=== PATIENT | female | born 1985 | race Caucasian/White ===

== ENCOUNTER 2016-02-25 19:38 | Outpatient (CLI) | payer MEDICAID ==
[2016-02-25] MEDS ORDERED: ACETAMINOPHEN 325 MG TABLET ONE (20:34)
[2016-02-25 20:57] LABS: APPEARANCE,URINE SLIGHTLY-CLOUDY; BILIRUBIN,URINE NEGATIVE (NEGATIVE); GLUCOSE, URINE NEGATIVE (NEGATIVE); KETONES,URINE NEGATIVE (NEGATIVE); LEUKOCYTE ESTERASE,URINE SMALL (NEGATIVE); NITRITE,URINE NEGATIVE (NEGATIVE); PROTEIN,URINE NEGATIVE (NEGATIVE); URINE SPECIFIC GRAVITY 1.004; UROBILINOGEN,URINE NEGATIVE mg/dL (<2.0)
--- NOTE | 2016-02-26 04:47 | L&D Discharge Summary ---
OB Discharge Summary Datetime Report Generated by CPN: 02/26/2016 04:45 DISCHARGE DIAGNOSIS Diagnosis/Symptoms: False Labor Diagnoses/Symptoms Other: IUP 38.1 weeks, normal BPs Gestation: 39.4 Number of Babies in Womb: 1 Parity: 1 DIET/ACTIVITY/RESTRICTIONS Diet: Regular Activity: Normal Activity Activity Restrictions: No Exercising TEACHING/INSTRUCTIONS/REFERRALS Instructions Given To: patient Instructions Understood: Patient Verbalized Understanding Referrals: None Educational Materials- Other: Round ligament pain DISCHARGE INFORMATION Discharged AMA: No Discharge Date/Time: 02/25/2016 21:24 Discharged To: Home Discharge Provider Name: Dr. Patton Accompanied By: Mother and family Discharge Method: Ambulatory Condition: Stable FOLLOW UP INFORMATION Follow Up With: [facility] Follow Up On: As Scheduled Follow Up Phone Number: [facility] - Comments: Instructed patient to rest if possible, take Tylenol as needed for discomfort, and return to hospital for contractions every 2-5 minutes for an hour, bleeding like a period, or if she thinks her water breaks. Instructed patient to follow-up as scheduled. Patient verbalized understanding and denied any further questions.
--- NOTE | 2016-02-26 04:47 | Antepartum Discharge Summary ---
Antepartum DC Datetime Report Generated by CPN: 02/26/2016 04:45 DIET/ACTIVITY/RESTRICTIONS Diet: Regular (02/25/2016 21:30:Maryanne Marlatt, RN) Activity: Normal Activity (02/25/2016 21:30:Maryanne Marlatt, RN) Activity Restrictions: No Exercising (02/25/2016 21:30:Maryanne Marlatt, RN) TEACHING/INSTRUCTIONS/REFERRALS Instructions Given To: patient (02/25/2016 21:30:Maryanne Marlatt, RN) Instructions Understood: Patient Verbalized Understanding (02/25/2016 21:30:Maryanne Lindsey RN) Referrals: None (02/25/2016 21:30:Maryanne Lindsey RN) Educational Materials- Other: Round ligament pain (02/25/2016 21:30:Maryanne Lindsey RN) DISCHARGE INFORMATION Discharged AMA: No (02/25/2016 21:30:Maryanne Lindsey RN) Discharge Date/Time: 02/25/2016 21:24 (02/25/2016 21:30:Maryanne Lindsey RN) Discharged To: Home (02/25/2016 21:30:Maryanne Lindsey RN) Discharge Provider Name: Dr. Patton (02/25/2016 21:30:Maryanne Lindsey RN) Accompanied By: Mother and family (02/25/2016 21:30:Maryanne Lindsey RN) Discharge Method: Ambulatory (02/25/2016 21:30:Maryanne Lindsey RN) Condition: Stable (02/25/2016 21:30:Maryanne Lindsey RN) FOLLOW UP INFORMATION Follow Up With: [facility] (02/25/2016 21:30:Maryanne Lindsey RN) Follow Up On: As Scheduled (02/25/2016 21:30:Maryanne Lindsey RN) Follow Up Phone Number: [facility] - (02/25/2016 21:30:Maryanne Lindsey RN) Comments: Instructed patient to rest if possible, take Tylenol as needed for discomfort, and return to hospital for contractions every 2-5 minutes for an hour, bleeding like a period, or if she thinks her water breaks. Instructed patient to follow-up as scheduled. Patient verbalized understanding and denied any further questions. (02/25/2016 21:30:Maryanne Lindsey RN)
--- NOTE | 2016-02-26 04:47 | L&D General Admission ---
General Admit Datetime Report Generated by CPN: 02/26/2016 04:45 INFORMATION Patient Age: 30 (02/15/2016 10:59:QS system process) EDC: 02/28/2016 00:00 (02/15/2016 11:02:Maryanne Lindsey RN) : 3 (02/15/2016 11:02:Maryanne Lindsey RN) Para: 1 (02/25/2016 21:30:Maryanne Lindsey RN) Para: 1 (02/15/2016 12:55:Maryanne Lindsey RN) Para: 1 (02/15/2016 11:02:Maryanne Lindsey RN) Baby, Number in Womb: 1 (02/25/2016 21:30:Maryanne Lindsey RN) Baby, Number in Womb: 1 (02/15/2016 12:55:Maryanne Lindsey RN) CARE Primary Supervisor Grading: [facility] [employer] [facility] (02/15/2016 11:02:Maryanne Lindsey RN) Month of 1st Visit: September 2015 (02/15/2016 11:02:Maryanne Lindsey RN) Adequate Care: No (02/15/2016 11:02:Maryanne Lindsey RN) Height (in): 64 (02/25/2016 20:25:QS system process) Height (in): 64 (02/25/2016 20:13:QS system process) Height (in): 64 (02/15/2016 12:48:QS system process) Height (in): 64 (02/15/2016 11:41:QS system process) ALLERGIES Medication Allergy: No (02/15/2016 11:02:Maryanne Lindsey RN) Medication Allergies: No Known Allergies (07/21/2015) (02/15/2016 10:59:QS system process) Latex Allergy: No Latex Allergies (02/15/2016 11:02:Maryanne Lindsey RN) COMMUNICATION Primary Language: Surinamese (02/15/2016 11:02:Maryanne Lindsey RN) DEMOGRAPHICS Address: [address] [place] [id number] (02/15/2016 10:59:QS system process) Zipcode: [address] (02/15/2016 10:59:QS system process) Home (02/15/2016 10:59:QS system process) SSN: [id number] (02/15/2016 10:59:QS system process) Next of Kin Name: ADAM CALLEJAS (02/15/2016 10:59:QS system process) Next of Kin (02/15/2016 10:59:QS system process) Next of Kin Relationship: MO (02/15/2016 10:59:QS system process) Date of : 1985 (02/15/2016 10:59:QS system process) Marital Status: Legally (02/15/2016 10:59:QS system process) Sex: Female (02/15/2016 10:59:QS system process) Race: (02/15/2016 10:59:QS system process) Ethnicity: Non- or (02/15/2016 10:59:QS system process) Gnosticist: None (02/15/2016 10:59:QS system process) LABS Blood Type: A Positive (02/15/2016 11:02:Maryanne Lindsey RN) Antibody Screen: Negative (02/15/2016 11:02:Karime Henson RN) Rho(G) this : Not Applicable (02/15/2016 11:02:Karime Henson RN) Hemoglobin: 10.9 L (02/15/2016 11:58:QS system process) Hematocrit: 32.0 L (02/15/2016 11:58:QS system process) MCV: 88 (02/15/2016 11:58:QS system process) Group Beta Strep: Negative (02/15/2016 11:02:Karime Henson RN) Gonorrhea: Negative (02/15/2016 11:02:Maryanne Lindsey RN) Chlamydia: Negative (02/15/2016 11:02:Maryanne Lindsey RN) RPR/VDRL: Nonreactive (02/15/2016 11:02:Maryanne Lindsey RN) Hepatitis B: Negative (02/15/2016 11:02:Maryanne Lindsey RN) Rubella: Immune (02/15/2016 11:02:Maryanne Lindsey RN)
--- NOTE | 2016-02-26 04:47 | L&D Admission Assessment ---
LD ADM ASMT Datetime Report Generated by CPN: 02/26/2016 04:45 PATIENT ASSESSMENT Assessment Type: Triage (02/25/2016 20:05:Maryanne Pereiraruth, RN) WEIGHT Weight (lb): 224 (02/25/2016 20:25:QS system process) Weight (lb): 224 (02/25/2016 20:13:QS system process) Weight (kg): 101.8 (02/25/2016 20:25:QS system process) Weight (kg): 101.8 (02/25/2016 20:13:QS system process) BMI: 38.4 (02/25/2016 20:25:QS system process) BMI: 38.4 (02/25/2016 20:13:QS system process) PAIN Pain Scale: 3 (02/25/2016 20:05:Maryanne Lindsey RN) Pain Presence: Intermittent (02/25/2016 20:05:Maryanne Lindsey RN) Pain Type: Cramping; Sharp (02/25/2016 20:05:Maryanne Lindsey RN) Pain Location: Abdomen (02/25/2016 20:05:Maryanne Lindsey RN) Pain Goal: 0 (02/25/2016 20:05:Maryanne Lindsey RN) Pain Related to Contraction: Unsure (02/25/2016 20:05:Maryanne Lindsey RN) CONTRACTIONS Frequency (min): irreg (02/25/2016 21:00:Maryanne Lindsey RN) Frequency (min): 0 (02/25/2016 20:30:Maryanne Lindsey RN) Duration (sec): 40-50 (02/25/2016 21:00:Maryanne Lindsey RN) Quality: Mild (02/25/2016 21:00:Maryanne Lindsey RN) Resting Tone Edon: Relaxed (02/25/2016 21:00:Maryanne Lindsey RN) Resting Tone Edon: Relaxed (02/25/2016 20:30:Maryanne Lindsey RN) VAGINAL EXAM Membranes Status: Intact (02/25/2016 20:05:Maryanne Lindsey RN) NEURO Level of Consciousness: Fully Conscious (02/25/2016 20:05:Maryanne Lindsey RN) DTR's/Clonus: DTRs 2+; No Clonus (02/25/2016 20:05:Maryanne Lindsey RN) Headache: Denies (02/25/2016 20:05:Maryanne Lindsey RN) Dizziness: No (02/25/2016 20:05:Maryanne Lindsey RN) Blurred Vision: No (02/25/2016 20:05:Maryanne Lindsey RN) Extremity Numbness/Tingling : None (02/25/2016 20:05:Maryanne Lindsey RN) Extremity Movement: Full Range of Motion (02/25/2016 20:05:Maryanne Lindsey RN) CARDIOVASCULAR Heart Rhythm: Regular (02/25/2016 20:05:Maryanne Lindsey RN) Nailbeds: [place] (02/25/2016 20:05:Maryanne Lindsey RN) Capillary Refill: Less than 3 Seconds (02/25/2016 20:05:Maryanne Lindsey RN) Lower Extremities Edema: None (02/25/2016 20:05:Maryanne Lindsey RN) Lower Extremities Edema Degree: None (02/25/2016 20:05:Maryanne Lindsey RN) Upper Extremities Edema: None (02/25/2016 20:05:Maryanne Lindsey RN) Upper Extremities Edema Degree: None (02/25/2016 20:05:Maryanne Lindsey RN) Facial Edema: None (02/25/2016 20:05:Maryanne Lindsey RN) Rowan's Sign Left Leg: Negative (02/25/2016 20:05:Maryanne Lindsey RN) Rowan's Sign Right Leg: Negative (02/25/2016 20:05:Maryanne Lindsey RN) RESPIRATORY Respiratory Effort: Unlabored; Regular Rhythm; Equal Expansion (02/25/2016 20:05:Maryanne Lindsey RN) Breath Sounds, Left: Clear and Equal (02/25/2016 20:05:Maryanne Lindsey RN) Breath Sounds, Right: Clear and Equal (02/25/2016 20:05:Maryanne Lindsey RN) Cough Productivity: None (02/25/2016 20:05:Maryanne Lindsey RN) GASTROINTESTINAL Nausea/Vomiting: Present (02/25/2016 20:05:Maryanne Lindsey RN) Bowel Sounds: Normoactive; All Quadrants (02/25/2016 20:05:Maryanne Lindsey RN) RUQ Epigastric Pain: Denies (02/25/2016 20:05:Maryanne Lindsey RN) Diet Type: Regular diet (02/25/2016 20:05:Maryanne Lindsey RN) Last Meal: 02/25/2016 14:00 (02/25/2016 20:05:Maryanne Lindsey RN) GENITOURINARY Bladder: Nondistended (02/25/2016 20:05:Maryanne Lindsey RN) Frequency of Urination: No (02/25/2016 20:05:Maryanne Lindsey RN) Urination Burning: No (02/25/2016 20:05:Maryanne Lindsey RN) CVA Tenderness: No (02/25/2016 20:05:Maryanne Lindsey RN) Vaginal Bleeding: None (02/25/2016 20:05:Maryanne Lindsey RN) Vaginal Discharge Amount: None (02/25/2016 20:05:Maryanne Lindsey RN) Vaginal Discharge Color: N/A (02/25/2016 20:05:Maryanne Lindsey RN) INTEGUMENTARY Skin Color: Normal for Race (02/25/2016 20:05:Maryanne Lindsey RN) Skin Temperature: Warm (02/25/2016 20:05:Maryanne Lindsey RN) Skin Moisture: Dry (02/25/2016 20:05:Maryanne Lindsey, JOE) DOYLE SKIN ASSESSMENT Doyle Scale Sensory Perception: No Impairment- Responds to verbal commands. Has no sensory deficit which would limit ability to feel or voice pain or discomfort (02/25/2016 20:05:Maryanne Lindsey RN) Doyle Scale Moisture: Rarely Moist- Skin is usually dry. Linen only requires changing at routine intervals (02/25/2016 20:05:Maryanne Lindsey RN) Doyle Scale Activity: Walks Frequently- Walks outside the room at least twice a day and inside room at least every 2 hours during the day. (02/25/2016 20:05:Maryanne Lindsey RN) Doyle Scale Mobility: No Limitations- Makes major and frequent changes in position without assistance (02/25/2016 20:05:Maryanne Lindsey RN) Doyle Scale Nutrition: Excellent- Eats most of every meal. Never refuses a meal. Usually eats a total of 4 or more servings of meat and dairy products. Occasionally eats between meals. Does not require supplementation (02/25/2016 20:05:Maryanne Lindsey RN) Doyle Scale Friction and Shear: No Apparent Problem- Moves in bed and in chair independently and has sufficient muscle strength to lift up completely during move. Maintains good position in bed or chair at all times (02/25/2016 20:05:Maryanne Lindsey RN) Doyle Scale Total: 23 (02/25/2016 20:05:QS system process) Doyle Scale Risk: No Risk of Pressure Ulcer Noted at this Time (02/25/2016 20:05:QS system process) SUPPORT Family Support: Significant Other supportive, at bedside frequently; Family supportive (02/25/2016 20:05:Maryanne Miladylatt, RN) Emotional State: Calm/Relaxed (02/25/2016 20:05:Maryanne Marlatt, RN) SAFETY Call Eaton Within Reach: Yes (02/25/2016 20:05:Maryanne Miladylatt, RN) Side Rails Up: Yes (02/25/2016 20:05:Maryanne Miladylatt, RN) Bed Wheels Locked: Yes (02/25/2016 20:05:Maryanne Miladylatt, RN) Arm Bands Present: Yes (02/25/2016 20:05:Maryanne Miladylatt, RN) FALL SCREEN Fall Risk History of Falling: (0) No (02/25/2016 20:05:Maryanen Lindsey RN) Fall Risk Secondary Diagnosis: (0) No (02/25/2016 20:05:Maryanne Lindsey RN) Fall Risk Ambulatory Aid: (0) None/Bedrest/Wheelchair/Nurse Assist (02/25/2016 20:05:Maryanne Lindsey RN) Fall Risk IV Therapy: (0) No (02/25/2016 20:05:Maryanne Lindsey RN) Fall Risk Gait: (0) Normal/Bedrest/Immobile (02/25/2016 20:05:Maryanne Lindsey RN) Fall Risk Mental Status: (0) Oriented to Own Ability (02/25/2016 20:05:Maryanne Lindsey RN) Fall Risk Score: 0 (02/25/2016 20:05:QS system process) Fall Risk Score Definition: No Risk: No action required (02/25/2016 20:05:QS system process) BABY A FHR Baseline Rate (bpm) Baby A: 120 (02/25/2016 21:00:Maryanne Lindsey RN) FHR Baseline Rate (bpm) Baby A: 120 (02/25/2016 20:30:Maryanne Lindsey RN) Variability Baby A: Moderate 6-25 bpm (02/25/2016 21:00:Maryanne Lindsey RN) Variability Baby A: Moderate 6-25 bpm (02/25/2016 20:30:Maryanne Lindsey RN) Accelerations Baby A: 15X15 (02/25/2016 21:00:Maryanne Lindsey RN) Accelerations Baby A: 15X15 (02/25/2016 20:30:Maryanne Lindsey RN)
--- NOTE | 2016-02-26 04:47 | L&D Current Admission ---
Current Admit Datetime Report Generated by CPN: 02/26/2016 04:45 ADMISSION INFORMATION Chief Complaint: Uterine Cramping (02/25/2016 20:05:Maryanne Lindsey RN) Chief Complaint: Headache; Dependant Edema; Nausea; Vomiting (02/15/2016 11:18:Maryanne Lindsey RN)
--- NOTE | 2016-02-26 04:47 | L&D Flow Sheet ---
LD Flowsheet Datetime Report Generated by CPN: 02/26/2016 04:45 Datetime: 02/25/2016 21:16 Comments: monitors discontinued, patient being discharged (Maryanne Marlatt, RN) Datetime: 02/25/2016 21:10 Monitor Interventions for FHR: Ultrasound Adjusted (Maryanne Marlatt, RN) Datetime: 02/25/2016 21:05 Vital Signs NBP Sys/Kitty/Mean (mmHg): 119 (QS system process) : 69 (QS system process) : 88 (QS system process) Pulse: 93 (QS system process) LaborFlag: Antepartum (QS system process) Datetime: 02/25/2016 21:02 Patient Care Patient Position/Activity: Right Lateral; Semi-Fowlers (Maryanne Marlatt, RN) Datetime: 02/25/2016 21:00 Uterine Activity Monitor Mode: External; Palpation (Maryanne Marlatt, RN) Frequency (min): irreg (Maryanne Marlatt, RN) Quality: Mild (Maryanne Marlatt, RN) Duration (sec): 40-50 (Maryanne Marlatt, RN) Resting Tone (Palpate): Relaxed (Maryanne Marlatt, RN) Assessment A Monitor Mode: External US (Maryanne Marlatt, RN) FHR Baseline Rate : 120 (Maryanne Marlatt, RN) Variability: Moderate 6-25 bpm (Maryanne Marlatt, RN) Accelerations: 15X15 (Maryanne Marlatt, RN) Datetime: 02/25/2016 20:58 I/O Interventions: Up to BR (Maryanne Marlatt, RN) Datetime: 02/25/2016 20:35 Vital Signs NBP Sys/Kitty/Mean (mmHg): 113 (QS system process) : 53 (QS system process) : 77 (QS system process) Pulse: 86 (QS system process) LaborFlag: Antepartum (QS system process) Datetime: 02/25/2016 20:34 Medications Analgesics/Sedatives: Tylenol (mg) @ (Annotations: 650mg) (Maryanne Marlatt, RN) Datetime: 02/25/2016 20:30 Uterine Activity Monitor Mode: External; Palpation (Maryanne Marlatt, RN) Frequency (min): 0 (Maryanne Marlatt, RN) Resting Tone (Palpate): Relaxed (Maryanne Marlatt, RN) Assessment A Monitor Mode: External US (Maryanne Marlatt, RN) FHR Baseline Rate : 120 (Maryanne Marlatt, RN) Variability: Moderate 6-25 bpm (Maryanne Marlatt, RN) Accelerations: 15X15 (Maryanne Marlatt, RN) Datetime: 02/25/2016 20:28 Communication Communication: Provider Orders Received; Call/Page Placed to Provider (Maryanne Lindsey RN) Provider Notified (Name): Dr. Patton (Maryanne Lindsey RN) Notification Reason: Status Update; Status; Uterine Activity; Pain (Maryanne Lindsey RN) Communication Comments: Notified provider of FHTs, lack of CTXs, and patient's comlaints of pain in two spots on her belly starting at 5pm. Received order to give patient 650mg of Tylenol, have her drink a pitcher of water and discharge her home with reactive NST (Maryanne Lindsey RN) Datetime: 02/25/2016 20:05 Pain Pain Scale: 3 (Maryanne Marlatt, RN) Pain Presence: Intermittent (Maryanne Marlatt, RN) Pain Type: Cramping; Sharp (Maryanne Marlatt, RN) Pain Location: Abdomen (Maryanne Marlatt, RN) Pain Goal: 0 (Maryanne Marlatt, RN) Pain Relief Measures: Comfort Measures (Maryanne Marlatt, RN) Pain Coping: Talking Through Contractions (Maryanne Marlatt, RN) Vaginal Exam Membrane Status: Intact (Maryanne Marlatt, RN) Vaginal Bleeding: None (Maryanne Marlatt, RN) Maternal Assessment Level of Consciousness: Fully Conscious (Maryanne Lindsey, OJE) DTR's/Clonus: DTRs 2+; No Clonus (Maryanne Lindsey, RN) Headache: Denies (Maryanne Lindsey, RN) Breath Sounds, Left: Clear and Equal (Maryanne Lindsey, RN) Breath Sounds, Right: Clear and Equal (Maryanne Lindsey, RN) Nausea/Vomiting: Present (Maryanne Lindsey RN) RUQ Epigastric Pain: Denies (Maryanne Lindsey, RN) Teaching Instructional Method: Demo; Verbal; Patient Instructed; Family/Support Person Instructed; Verbalized Understanding (Maryanne Lindsey RN) Plan of Care: Plan of Care Discussed (Maryanne Lindsey RN) Unit Routine: Norris to Room; Call Eaton; Bed; Monitoring (Maryanne Lindsey RN) Pain Management: Pain Scale/Goals; Comfort Measures (Maryanne Lindsey RN) LaborFlag: Antepartum (QS system process) Datetime: 02/25/2016 20:04 Vital Signs NBP Sys/Kitty/Mean (mmHg): 109 (QS system process) : 58 (QS system process) : 77 (QS system process) Pulse: 99 (QS system process) LaborFlag: Antepartum (QS system process)
--- NOTE | 2016-02-26 10:38 | Non Stress Test Report ---
Non Stress Test Datetime Report Generated by CPN: 02/26/2016 10:38 EGA NST: 39.4 Indication for Study: Other Indication for Study (NST) Other: labor check Monitor Explained: Monitor Explained; Test Explained; Patient Verbalized Understanding Time on Monitor: 02/25/2016 20:03 Time off Monitor: 02/25/2016 20:57 NST Duration: 54 NST Interventions: PO Hydration Physician Notified NST: Dr. Patton Movement : Present Contraction Frequency : rare FHR Baseline : 120 Accelerations : 15X15 Decelerations : None Variability : Moderate 6-25bpm NST Review: Meets Criteria for Reactive NST NST Review and Verified By : Tacho Henson RN NST Results: Reactive Report Trigger: Send Report
[2016-02-26 17:09] LABS: URINE BARBITURATES SCREEN NEGATIVE; URINE METHADONE SCREEN NEGATIVE; URINE PHENCYCLIDINE SCREEN NEGATIVE
--- NOTE | 2016-03-02 21:28 | Non Stress Test Report ---
Non Stress Test Datetime Report Generated by CPN: 03/02/2016 21:28 DEMOGRAPHIC EGA NST: 39.4 INDICATION Indication for Study: Other Indication for Study (NST) Other: labor check MONITORING Monitor Explained: Monitor Explained; Test Explained; Patient Verbalized Understanding Time on Monitor: 02/25/2016 20:03 Time off Monitor: 02/25/2016 20:57 NST Duration: 54 NST INTERVENTIONS NST Interventions: PO Hydration Physician Notified NST: Dr. Patton BABY A: [id number] BABY A Movement : Present Contraction Frequency : rare FHR Baseline : 120 Accelerations : 15X15 Decelerations : None Variability : Moderate 6-25bpm NST Review: Meets Criteria for Reactive NST NST Review and Verified By : Tacho Henson RN NSWill Results: Reactive NST REPORT Report Trigger: Send Report
--- NOTE | 2016-03-03 04:46 | L&D Discharge Summary ---
OB Discharge Summary Datetime Report Generated by CPN: 03/03/2016 04:45 DISCHARGE DIAGNOSIS Diagnosis/Symptoms: False Labor Diagnoses/Symptoms Other: IUP 38.1 weeks, normal BPs Gestation: 40.4 Number of Babies in Womb: 1 Parity: 1 DIET/ACTIVITY/RESTRICTIONS Diet: Regular Activity: Normal Activity Activity Restrictions: No Exercising TEACHING/INSTRUCTIONS/REFERRALS Instructions Given To: patient Instructions Understood: Patient Verbalized Understanding Referrals: None Educational Materials- Other: Round ligament pain DISCHARGE INFORMATION Discharged AMA: No Discharge Date/Time: 02/25/2016 21:24 Discharged To: Home Discharge Provider Name: Dr. Patton Accompanied By: Mother and family Discharge Method: Ambulatory Condition: Stable FOLLOW UP INFORMATION Follow Up With: [facility] Follow Up On: As Scheduled Follow Up Phone Number: [facility] - Comments: Instructed patient to rest if possible, take Tylenol as needed for discomfort, and return to hospital for contractions every 2-5 minutes for an hour, bleeding like a period, or if she thinks her water breaks. Instructed patient to follow-up as scheduled. Patient verbalized understanding and denied any further questions.
== END 2016-02-25 21:24 | disposition home or self-care (01) ==
LOC: LC 19:38
PROVIDERS: ATTEND Obstetrics & Gynecology
PROC: 4A1HXCZ Monitoring of Products of Conception, Cardiac Rate, External Approach (ICD-10-PCS; principal; 2016-02-25)
DX: O47.1 False labor at or after 37 completed weeks of gestation (principal); Z3A.40 40 weeks gestation of pregnancy
CPT/HCPCS: 59025; 81005; 80307; J3490

== ENCOUNTER 2016-03-02 21:27 | Inpatient (IN) | payer MEDICAID ==
[2016-03-02 22:16] LABS: APPEARANCE,URINE SLIGHTLY-CLOUDY; BILIRUBIN,URINE NEGATIVE (NEGATIVE); GLUCOSE, URINE NEGATIVE (NEGATIVE); KETONES,URINE NEGATIVE (NEGATIVE); LEUKOCYTE ESTERASE,URINE LARGE (NEGATIVE); NITRITE,URINE NEGATIVE (NEGATIVE); PROTEIN,URINE 30 mg/dL (NEGATIVE); URINE SPECIFIC GRAVITY 1.009; UROBILINOGEN,URINE NEGATIVE mg/dL (<2.0)
[2016-03-02 22:31] LABS: URINE BARBITURATES SCREEN NEGATIVE; URINE METHADONE SCREEN NEGATIVE; URINE PHENCYCLIDINE SCREEN NEGATIVE
[2016-03-02] MEDS ORDERED: RINGERS SOLUTION,LACTATED 1,000 ML IV PRN (23:34)
[2016-03-02] MEDS ORDERED: EPHEDRINE SULFATE INJ 50 MG/1 ML AMPULE ONE (23:59)
[2016-03-02] MEDS ORDERED: FENTANYL CITRATE INJ/PF 100 MCG/2 ML AMPUL ONE (23:59)
[2016-03-02] MEDS ORDERED: MISOPROSTOL 0.2 MG TABLET ONE (23:59)
[2016-03-03] LABS: ABSOLUTE BASOPHILS # (AUTO) 0.1 10^3/uL (0.0-0.2); ABSOLUTE EOSINOPHILS # (AUTO) 0.1 10^3/uL (0.0-0.6); ABSOLUTE LYMPHOCYTES (AUTO) 2.7 10^3/uL (0.5-4.7); ABSOLUTE MONOCYTES (AUTO) 1.1 10^3/uL (0.1-1.4); ABSOLUTE NEUT (AUTO) 14.7 10^3/uL (1.7-8.2); BASOPHILS % (AUTO) 0.5 % (0-2); EOSINOPHILS % (AUTO) 0.6 % (0-6); HEMATOCRIT 35.5 % (36.0-47.0); HEMOGLOBIN 11.5 g/dL (12.0-15.5); LYMPHOCYTES % (AUTO) 14.3 % (13-45); MEAN CORPUSCULAR HEMOGLOBIN 29.3 pg (27.0-33.4); MEAN CORPUSCULAR HGB CONC 32.3 g/dL (32.0-36.0); MEAN CORPUSCULAR VOLUME 91 fl (80-97); MONOCYTES % (AUTO) 5.7 % (3-13); RED BLOOD COUNT 3.91 10^6/uL (3.72-5.28); RED CELL DISTRIBUTION WIDTH 13.6 % (11.5-14.0); SEGMENTED NEUTROPHILS % (AUTO) 78.9 % (42-78); WHITE BLOOD COUNT 18.6 10^3/uL (4.0-10.5)
[2016-03-03] MEDS ORDERED: BUPIVACAINE HCL 0.25 % INJ/PF (2.5 MG/1 ML) 30 ML VIAL ONE
[2016-03-03] MEDS ORDERED: FENTANYL/BUPIVACAINE/NS/PF 200 MCG/100 ML RTUINJ EPI ONE
[2016-03-03] MEDS ORDERED: OXYTOCIN/NORMAL SALINE 20 UNIT/1,000 ML RTUINJ ONE
[2016-03-03] MEDS ORDERED: LIDOCAINE 1% INJ-PF (10 MG/ML) 30 ML SDV ONE
[2016-03-03] MEDS ORDERED: PHENYLEPHRINE HCL INJ/PF 10 MG/1 ML SDV ONE
[2016-03-03] MEDS ORDERED: GLYCERIN/WITCH HAZEL LEAF 1 EACH MED..PAD TP PRN (00:39)
[2016-03-03] MEDS ORDERED: ZOLPIDEM TARTRATE 5 MG TABLET PO PRN (00:39)
[2016-03-03] MEDS ORDERED: DIBUCAINE 1% OINTMENT 28 GM TP PRN (00:39)
[2016-03-03] MEDS ORDERED: ACETAMINOPHEN WITH CODEINE #3 TABLET PO PRN (00:39)
[2016-03-03] MEDS ORDERED: NA PHOS,M-B/NA PHOS,DI-BA (ADULT) 133 ML ENEMA PR PRN (00:39)
[2016-03-03] MEDS ORDERED: DIPH/PERTUSS(ACELL)/TETANUS VAC/PF 0.5 ML SYR (>=10YO) IM PRN (00:39)
[2016-03-03] MEDS ORDERED: MAGNESIUM HYDROXIDE SUSP 30 ML UDCUP PO PRN (00:39)
[2016-03-03] MEDS ORDERED: PROMETHAZINE HCL 25 MG TABLET PO PRN (00:39)
[2016-03-03] MEDS ORDERED: BENZOCAINE/MENTHOL AEROSOL SPRAY 56 ML TOP PRN (00:39)
[2016-03-03] MEDS ORDERED: DIPHENHYDRAMINE HCL 25 MG CAPSULE PO PRN (00:39)
[2016-03-03] MEDS ORDERED: PSEUDOEPHEDRINE HCL 30 MG TABLET PO PRN (00:39)
[2016-03-03] MEDS ORDERED: PROMETHAZINE HCL INJ 25 MG/1 ML VIAL IV PRN (00:39)
[2016-03-03] MEDS ORDERED: ACETAMINOPHEN 650 MG SUPP.RECT PR PRN (00:39)
[2016-03-03] MEDS ORDERED: MEASLES,MUMPS&RUBELLA VACC/PF 0.5 ML VIAL SUBCUT PRN (00:39)
[2016-03-03] MEDS ORDERED: PROMETHAZINE HCL 25 MG SUPP.RECT PR PRN (00:39)
[2016-03-03] MEDS ORDERED: OXYTOCIN/NORMAL SALINE 1,000 ML IV PRN (00:39)
[2016-03-03] MEDS ORDERED: ACETAMINOPHEN WITH CODEINE #3 TABLET ONE (01:46)
[2016-03-03] MEDS ORDERED: IBUPROFEN 800 MG TABLET ONE (01:46)
[2016-03-03] MEDS: ACETAMINOPHEN WITH CODEINE #3 TABLET PO PRN ×3 (01:52→18:19)
--- NOTE | 2016-03-03 03:07 | Delivery Summary ---
Del Sum A-C Datetime Report Generated by CPN: 03/03/2016 03:07 ADMISSION DATA Chief Complaint: Uterine Contractions Indication for Induction: Not Applicable Admission Impression: Term, Intrauterine ; Active Labor Admit Provider Comments: efw 7-8 lbs DELIVERY PERSONNEL Delivery Doctor:: Makenzie Patton MD Labor and Delivery Nurse:: Charu Barraza RNlicensed prosthetist/orthotist Nurse:: Belkis Hdez RN Nursery Nurse:: Teodora Ribera RN Offset Pressman/DEWAYNE: Raysa Perez, ST MATERNAL INFORMATION Delivery Anesthesia: Epidural Medications After Delivery: Pitocin Bolus-Please Comment Meds After Delivery Comment: Pitocin 20 units/1000 mL NS Estimated Blood Loss (ml): 250 Maternal Complications: Precipitous Labor (<3hrs) LABOR SUMMARY EDC: 02/28/2016 00:00 No. Babies in Womb: 1 Labor Anesthesia: Epidural LABOR INFORMATION Reason for Induction: Not Applicable Onset of Labor: 03/02/2016 23:25 Complete Dilatation: 03/03/2016 01:11 Oxytocin: N/A Group B Beta Strep: Negative Antibiotics # of Doses: 0 Antibiotics Time of Last Dose: N/A Steroids Given: None Reason Steroids Not Administered: Not Applicable MEMBRANES Membranes Rupture Method: Spontaneous Rupture of Membranes: 03/03/2016 00:21 Length of Rupture (hr): 0.95 Amniotic Fluid Color: Light Meconium Amniotic Fluid Amount: Moderate Amniotic Fluid Odor: Normal STAGES OF LABOR Stage 1 hr: 1 Stage 1 min: 46 Stage 2 hr: 0 Stage 2 min: 7 Stage 3 hr: 0 Stage 3 min: 4 Total Time in Labor hr: 1 Total Time in Labor min: 57 VAGINAL DELIVERY Episiotomy: None Laceration Type: None Laceration Repair: Not Applicable Sponge Count Correct: N/A Sharps Count Correct: N/A CSECTION DELIVERY Primary Indication: N/A Secondary Indication: N/A CSection Incidence: N/A Labor: N/A Elective: N/A CSection Incision: N/A BABY A INFORMATION Delivery Date/Time: 03/03/2016 01:18 Method of Delivery: Vaginal Born in Route : No : N/A Forceps: N/A Vacuum Extraction: N/A Shoulder Dystocia : No PRESENTATION/POSITION BABY A Presentation: Cephalic Cephalic Presentation: Vertex Vertex Position: Left Occipital Anterior Breech Presentation: N/A PLACENTA INFORMATION BABY A Placenta Delivery Time : 03/03/2016 01:22 Placenta Method of Delivery: Spontaneous Placenta Status: Delivered SCORES BABY A Heart Rate 1 min: >100 bpm Resp Effort 1 min: Good Cry Reflex Irritability 1 min: Cough or Sneeze or Pulls Away Muscle Tone 1 min: Active Motion Color 1 min: Blue/Pale SCORE 1 MIN: 8 Heart Rate 5 min: >100 bpm Resp Effort 5 min: Good Cry Reflex Irritability 5 min: Cough or Sneeze or Pulls Away Muscle Tone 5 min: Active Motion Color 5 min: Body Katie, Extremities Blue SCORE 5 MIN: 9 INFANT INFORMATION BABY A Gestational Age at Delivery: 40.4 Gestational Status: Full Term- 39- 40.6 Weeks Outcome : Liveborn Condition : Stable Sex: Male IDENTIFICATION BABY A Verification Date/Time: 03/03/2016 01:48 ID Band Number: [id number] Mother's Name Verified: Yes RN Verifying Infant: Emilia Meneses, RN Additional Verifying Personnel: Emilia Barraza, RN WEIGHT/LENGTH BABY A Infant Birthweight (gm): 3601 Weight (lb): 7 Weight (oz): 15 Length (in): 20.25 Infant Length (cm): 51.44 CORD INFORMATION BABY A No. Cord Vessels: 3 Nuchal Cord : N/A Cord Blood Taken: Yes-For Storage (Mom's Blood type +) Suction: Mouth; Nose ASSESSMENT BABY A Infant Complications: Other Infant Complications- Other: Late and variable decels Respirations: Appears Normal Skin to Skin: Yes Skin to Skin Time (min): 10 Gastroenterology Professor/ALS Called : No Infant Care By: Omi Bacilio RN Transferred To: Remains with Mother SIGNATURES Signature: with User ID: [email or web address]
--- NOTE | 2016-03-03 04:46 | L&D Current Admission ---
Current Admit Datetime Report Generated by CPN: 03/03/2016 04:45 ADMISSION INFORMATION Current Admit Date/Time: 03/03/2016 00:08 (03/02/2016 22:00:Charu Barraza RN) Reason for Admission: Onset of Labor (03/02/2016 22:00:Charu Barraza RN) Chief Complaint: Contractions (03/02/2016 22:00:Charu Barraza RN) Medications During : Ferrous Sulfate (Iron) (03/02/2016 22:00:Charu Barraza RN) Meds During -Oth: diclegis, iron, vit b/vit c (03/02/2016 22:00:Chaur Barraza RN) EGA per Dates: 40.4 (03/02/2016 22:00:QS system process) Method of Arrival: Wheelchair (03/02/2016 22:00:Charu Barraza RN) Admitted From: Home (03/02/2016 22:00:Charu Barraza RN) Reason for Induction: Not Applicable (03/02/2016 22:00:Charu Barraza RN) Records Available: Yes (03/02/2016 22:00:Charu Barraza RN) General Admission Information: Reviewed; Updated; Confirmed (03/02/2016 22:00:Charu Barraza RN) General Admission Reviewed By: Guero Barraza RN (03/02/2016 22:00:Charu Barraza RN) BELONGINGS/ADVANCED DIRECTIVES Other Belongings: see [facility] belongings form (03/02/2016 22:00:Charu Barraza RN) Advance Direct for Healthcare: No, and Wants No Information (03/02/2016 22:00:Charu Barraza RN) Durable Power of Nail Expert: No (03/02/2016 22:00:Charu Barraza RN) Living Will: No (03/02/2016 22:00:Charu Barraza RN) Organ Donor: Yes (03/02/2016 22:00:Charu Barraza RN) Pt Rights Information Given: Yes (03/02/2016 22:00:Charu Barraza RN) Pt Understands Pt Rights: Yes (03/02/2016 22:00:Charu Barraza RN) LEARNING ASSESSMENT Knowledge Level: Understands L_D Process (03/02/2016 22:00:Charu Barraza RN) Barriers to Learning: Emotional State; Pain (03/02/2016 22:00:Charu Barraza RN) Learning Readiness: Unable to Participate (03/02/2016 22:00:Charu Barraza RN) Learning Needs: Labor and Delivery Process; Pain Management; Symptoms to Report; Treatment Plan; Medication; Diagnosis; Nutrition; Equipment; Infant Care (03/02/2016 22:00:Charu Barraza RN) DOMESTIC VIOLANCE SCREENING Reason Unable to Complete Screen: No Opportunity to Talk Privately (03/02/2016 22:00:Charu Barraza RN) NUTRITIONAL/FUNCTIONAL SCREENING Problem with Appetite >5 Days: No (03/02/2016 22:00:Charu Barraza RN) Chew/Swallow Difficulties: No (03/02/2016 22:00:Charu Barraza RN) Inappropriate Wt Gain/Loss: No (03/02/2016 22:00:Charu Barraza RN) Presence Skin Breakdown/Ulcer: No (03/02/2016 22:00:Charu Barraza RN) Special Diet: No (03/02/2016 22:00:Charu Barraza RN) Pt Requests Metal Work Duct Installer Visit: No (03/02/2016 22:00:Charu Barraza RN) Hx of Any of the Following?: N/A (03/02/2016 22:00:Charu Barraza RN) New Diagnosis of: N/A (03/02/2016 22:00:Charu Barraza RN) Requires Assist w/Ambulation: No (03/02/2016 22:00:Charu Barraza RN) Uses Assist Device to Ambulate: No (03/02/2016 22:00:Charu Barraza RN) Pt Requires Help w/ADL's: No (03/02/2016 22:00:Charu Barraza RN)
--- NOTE | 2016-03-03 04:46 | L&D Flow Sheet ---
LD Flowsheet Datetime Report Generated by CPN: 03/03/2016 04:45 Datetime: 03/03/2016 03:54 NBP Sys/Kitty/Mean (mmHg): 123 (QS system process) : 60 (QS system process) : 85 (QS system process) Pulse: 87 (QS system process) Datetime: 03/03/2016 03:38 NBP Sys/Kitty/Mean (mmHg): 118 (QS system process) : 58 (QS system process) : 83 (QS system process) Pulse: 75 (QS system process) Datetime: 03/03/2016 03:24 NBP Sys/Kitty/Mean (mmHg): 120 (QS system process) : 59 (QS system process) : 84 (QS system process) Pulse: 77 (QS system process) Datetime: 03/03/2016 02:53 NBP Sys/Kitty/Mean (mmHg): 120 (QS system process) : 58 (QS system process) : 83 (QS system process) Pulse: 83 (QS system process) Datetime: 03/03/2016 02:38 NBP Sys/Kitty/Mean (mmHg): 121 (QS system process) : 56 (QS system process) : 80 (QS system process) Pulse: 83 (QS system process) Datetime: 03/03/2016 02:24 NBP Sys/Kitty/Mean (mmHg): 109 (QS system process) : 55 (QS system process) : 76 (QS system process) Pulse: 86 (QS system process) Respirations: 19 (Charu Christi, RN) Temperature (F): 98.0 (Charu Christi, RN) Temperature (C): 36.7 (QS system process) Datetime: 03/03/2016 02:09 NBP Sys/Kitty/Mean (mmHg): 104 (QS system process) : 51 (QS system process) : 74 (QS system process) Pulse: 86 (QS system process) Datetime: 03/03/2016 01:52 Pain Pain Scale: 1 (Charu Christi, ) Pain Presence: Constant (Charu Christi, ) Pain Type: Ache (Charu Christi, ) Pain Location: Perineum (Charu Christi, ) Pain Goal: 0 (Charu Christi, ) Pain Relief Measures: Pain Medication Given (Charu [facility], ) Datetime: 03/03/2016 01:38 NBP Sys/Kitty/Mean (mmHg): 101 (QS system process) : 56 (QS system process) : 77 (QS system process) Pulse: 96 (QS system process) Datetime: 03/03/2016 01:23 NBP Sys/Kitty/Mean (mmHg): 113 (QS system process) : 52 (QS system process) : 78 (QS system process) Pulse: 95 (QS system process) Datetime: 03/03/2016 01:22 Stage 2 Comments: delivery of intact placenta in sandra position, three vessel cord (Belkis Kossmann, RN) Datetime: 03/03/2016 01:20 Vital Signs Stage of : Recovery (Charu Christi, RN) Datetime: 03/03/2016 01:18 Stage 2 Comments: of viable male, to abdomen for skin to skin, dried and stimulated, cord clamped and cut, then transfered to warmer for evaluation (Belkis Kossmann, RN) Datetime: 03/03/2016 01:16 Stage 2 Pushing: Coached on Pushing (Belkis Hdez RN) Pushing Position: Pushing with Contractions (Belkis Hdez RN) Pushing Progress: Descent with Pushing; with Pushing (Belkis Hdez RN) Stage 2 Comments: Nursery JOE Ribera at bedside for imminent delivery (Belkis Hdez RN) Datetime: 03/03/2016 01:15 Uterine Activity Monitor Mode: External (Charu Barraza RN) Frequency (min): 2-3 (Charu Barraza RN) Quality: Moderate to Strong (Charu Barraza RN) Duration (sec): 50-90 (Charu Barraza RN) Resting Tone (Palpate): Relaxed (Charu Barraza, JOE) Assessment A Monitor Mode: External US (Charu Barraza RN) FHR Baseline Rate : 120 (Charu Barraza RN) Variability: Minimal - Undetectable to <=5 bpm (Charu Barraza RN) Accelerations: None (Charu Barraza RN) Decelerations: Late; Prolonged (Charu Barraza RN) Comments: RN and provider at bedside assessing FHR and ctx (Charu Barraza RN) Stage 2 Comments: Dr. Patton at bedside for delivery, Nursery requested (Belkis Hdez RN) Datetime: 03/03/2016 01:11 Vaginal Exam Dilatation (cm): 10.0 (Belkis Hdez RN) Effacement (%): 100 (Belkis Hdez RN) Station: 2 (Belkis Hdez RN) Exam by: JOE Barraza (Belkis Hdez RN) Communication Comments: Dr. Patton in route for delivery and on unit (Belkis Hdez RN) Datetime: 03/03/2016 01:10 Pulse: 95 (QS system process) SpO2 (%): 100 (QS system process) LaborFlag: Antepartum (QS system process) Datetime: 03/03/2016 01:08 NBP Sys/Kitty/Mean (mmHg): 119 (QS system process) : 58 (QS system process) : 84 (QS system process) Pulse: 102 (QS system process) LaborFlag: Antepartum (QS system process) Datetime: 03/03/2016 01:07 NBP Sys/Kitty/Mean (mmHg): 127 (QS system process) : 61 (QS system process) : 88 (QS system process) Pulse: 92 (QS system process) LaborFlag: Antepartum (QS system process) Datetime: 03/03/2016 01:06 NBP Sys/Kitty/Mean (mmHg): 137 (QS system process) : 62 (QS system process) : 89 (QS system process) Pulse: 96 (QS system process) LaborFlag: Antepartum (QS system process) Datetime: 03/03/2016 01:05 Pulse: 111 (QS system process) SpO2 (%): 100 (QS system process) Actions for Decelerations: Side to Side; Oxygen Applied (Charu Christi, RN) Patient Position/Activity: Right Lateral (Charu Christi, RN) LaborFlag: Antepartum (QS system process) Datetime: 03/03/2016 01:04 NBP Sys/Kitty/Mean (mmHg): 142 (QS system process) : 65 (QS system process) : 94 (QS system process) Pulse: 99 (QS system process) LaborFlag: Antepartum (QS system process) Datetime: 03/03/2016 01:02 NBP Sys/Kitty/Mean (mmHg): 115 (QS system process) : 56 (QS system process) : 80 (QS system process) Pulse: 89 (QS system process) LaborFlag: Antepartum (QS system process) Datetime: 03/03/2016 01:01 NBP Sys/Kitty/Mean (mmHg): 124 (QS system process) : 60 (QS system process) : 87 (QS system process) Pulse: 90 (QS system process) LaborFlag: Antepartum (QS system process) Datetime: 03/03/2016 01:00 NBP Sys/Kitty/Mean (mmHg): 133 (QS system process) : 83 (QS system process) : 103 (QS system process) Pulse: 95 (QS system process) Pulse: 108 (QS system process) Pulse: 115 (QS system process) SpO2 (%): 99 (QS system process) SpO2 (%): 90 (QS system process) Uterine Activity Monitor Mode: Palpation (Charu Barraza RN) Monitor Interventions for UA: [place] Adjusted (Charu Barraza RN) Frequency (min): 2-4 (Charu Barraza RN) Quality: Moderate (Charu Barraza RN) Duration (sec): 50-90 (Charu Barraza RN) Resting Tone (Palpate): Relaxed (Charu Barraza RN) Contraction Comments: Ctx monitored with palpation by RN during epidural procedure (Chaur Barraza RN) Monitor Interventions for FHR: Ultrasound Adjusted (Charu Barraza RN) Comments: Unable to monitor FHR during epidural procedure (Charu Barraza RN) Patient Position/Activity: Supine (Charu Barraza RN) Epidural Procedure Other: Pump Started (Charu Barraza RN) LaborFlag: Antepartum (QS system process) Datetime: 03/03/2016 00:58 NBP Sys/Kitty/Mean (mmHg): 129 (QS system process) : 63 (QS system process) : 91 (QS system process) Pulse: 101 (QS system process) LaborFlag: Antepartum (QS system process) Datetime: 03/03/2016 00:57 NBP Sys/Kitty/Mean (mmHg): 146 (QS system process) : 89 (QS system process) : 110 (QS system process) Pulse: 91 (QS system process) LaborFlag: Antepartum (QS system process) Datetime: 03/03/2016 00:56 NBP Sys/Kitty/Mean (mmHg): 156 (QS system process) : 100 (QS system process) : 113 (QS system process) Pulse: 110 (QS system process) Epidural Procedure: Loading Dose (Belkis Hdez RN) LaborFlag: Antepartum (QS system process) Datetime: 03/03/2016 00:54 Pulse: 95 (QS system process) SpO2 (%): 97 (QS system process) LaborFlag: Antepartum (QS system process) Datetime: 03/03/2016 00:53 Epidural Procedure: Test Dose (Belkis Kossmann, RN) Datetime: 03/03/2016 00:52 Epidural Procedure: Cath Placed (Belkis Kossmann, RN) Datetime: 03/03/2016 00:48 Pulse: 95 (QS system process) SpO2 (%): 98 (QS system process) LaborFlag: Antepartum (QS system process) Datetime: 03/03/2016:46 Procedure TIME OUT Procedure Type: epidural (Belkis Hdez RN) Procedure Verify: Correct Patient Identity; Correct Side and Site are Marked; Accurate Procedure Consent Form; Agreement on Procedure to be Done; Correct Patient Position (Belkis Hdez RN) Anesthesia Anesthesia Plans: Epidural (Belkis Hdez RN) Epidural Positioning: Sitting (Belkis Hdez RN) Anesthesia Comments: Dr. Tang at [facility] for epidural placement (Belkis Hdez RN) Datetime: 03/03/2016 00:45 Uterine Activity Monitor Mode: External (Charu Christi, RN) Frequency (min): 2-3.5 (Cahru Christi, RN) Quality: Moderate (Charu Christi, RN) Duration (sec): 50-80 (Charu Christi, RN) Resting Tone (Palpate): Relaxed (Charu Christi, RN) Assessment A Monitor Mode: External US (Charu Christi, RN) FHR Baseline Rate : 125 (Charu Christi, RN) Variability: Moderate 6-25 bpm (Charu Christi, RN) Accelerations: None (Charu Christi, RN) Decelerations: Early; Variable (Charu Christi, RN) Comments: early _ variable decelerations auscultated by RN while at bedside (Charu Christi, RN) Datetime: 03/03/2016 00:40 Pulse: 97 (QS system process) SpO2 (%): 98 (QS system process) LaborFlag: Antepartum (QS system process) Datetime: 03/03/2016 00:36 Patient Care IV/Blood Work: New IV Bag Hung (Belkis Kossmann, RN) Datetime: 03/03/2016 00:35 Pulse: 91 (QS system process) SpO2 (%): 99 (QS system process) LaborFlag: Antepartum (QS system process) Datetime: 03/03/2016 00:34 Actions for Decelerations: Oxygen Applied (Belkis Kossmann, RN) Datetime: 03/03/2016 00:33 Pain Coping: Crying; Writhing; Other (Annotations: Bearing down with ctx ) (Charu Christi, RN) Vaginal Exam Dilatation (cm): 7.0 (Charu Christi, RN) Effacement (%): 80 (Charu Christi, RN) Station: -1 (Charu Christi, RN) Exam by: Guero Barraza RN (Charu Christi, RN) Datetime: 03/03/2016 00:31 Communication Comments: Dr. Patton informed of vag exam (Annotations: (disregard previous strip charting done in error)) (Charu Barraza, RN) Communication Comments: Dr. Patton on floor (Meera Desai, RN) Datetime: 03/03/2016 00:30 Uterine Activity Monitor Mode: External; Palpation (Charu Christi, RN) Frequency (min): 2-3 (Charu Christi, RN) Quality: Moderate (Charu Christi, RN) Duration (sec): 60-90 (Charu Christi, RN) Resting Tone (Palpate): Relaxed (Charu Christi, RN) Assessment A Monitor Mode: External US (Charu Christi, RN) FHR Baseline Rate : 135 (Charu Christi, RN) Variability: Moderate 6-25 bpm (Charu Christi, RN) Accelerations: 15X15 (Charu Christi, RN) Decelerations: Early; Variable (Charu Christi, RN) Membrane Status: Disregard previous strip charting done in error (Charu Barraza, RN) Datetime: 03/03/2016 00:29 Procedure Verify: Correct Patient Identity; Correct Side and Site are Marked; Accurate Procedure Consent Form; Agreement on Procedure to be Done; Relevant Images and Results are Properly Labeled and Displayed; Addressed Need to Administer Antibiotics or Fluids for Irrigation; Safety Precautions Based on Patient History or Medication Use (Charu Christi, RN) Anesthesia Anesthesia Plans: Epidural (Charu Christi, RN) Anesthesia Comments: Dr. Tang aware of epidural request and is in route (Belkis Hdez, RN) Datetime: 03/03/2016 00:28 Pain Coping: Crying; Writhing; Other (Annotations: bearing down with ctx ) (Charu Christi, RN) Vaginal Exam Dilatation (cm): 7.0 (Charu Christi, RN) Effacement (%): 80 (Charu Christi, RN) Station: -2 (Charu Christi, RN) Exam by: K Christi RN (Charu Christi, RN) Datetime: 03/03/2016 00:24 I/O Interventions: Wesley Discontinued (Belkis Hdez RN) Patient Care Comments: wesley cath discontinued d/t pt involuntarily pushing and RN inability to perform SVE d/t to pt movement (Belkis Hdez, JOE) Datetime: 03/03/2016 00:22 Communication Comments: Nursery called for light mec, possible impending delivery d/t inability to perform accurate vag exam and apparent involuntary pushing (Charu Christi, RN) Datetime: 03/03/2016 00:21 Pain Coping: Crying; Writhing (Annotations: Bearing down with ctx, will not tolerate SVE, reports urge to defecate) (Charu Barraza, JOE) Membrane Status: Ruptured (Charu Barraza RN) Membranes Ruptured Date/Time: 03/03/2016 00:21 (Charu Christi, RN) Membranes Rupture Method: Spontaneous (Charu Christi, RN) Amniotic Fluid Color: Light Meconium (Charu Christi, RN) Amniotic Fluid Amount: Moderate (Charu Christi, RN) Communication Communication: Call/Page Placed to Provider (Charu Christi, RN) Communication Comments: Informed DrRory Patton of vag exam; he is enroute. ([facility], RN) Datetime: 03/03/2016 00:15 Uterine Activity Monitor Mode: External; Palpation (Charu Christi, RN) Frequency (min): 2-4 (Charu Christi, RN) Quality: Moderate (Charu Christi, RN) Duration (sec): 60-90 (Charu Christi, RN) Resting Tone (Palpate): Relaxed (Charu Christi, RN) Assessment A Monitor Mode: External US (Charu Christi, RN) FHR Baseline Rate : 125 (Charu Christi, RN) Variability: Moderate 6-25 bpm (Charu Christi, RN) Accelerations: 15X15 (Charu Christi, RN) Decelerations: None (Charu Christi, RN) Datetime: 03/03/2016 00:05 Communication Communication: RN Reviewed Strip; Call/Page Placed to Provider (Meera Desai, RN) Communication Comments: Informed Dr. Patton of vag exam; he is on his way in to L_D (Meera Desai, RN) Datetime: 03/03/2016 00:03 Vaginal Exam Dilatation (cm): 6.0 (Charu Barraza, JOE) Effacement (%): 90 (Charu Barraza RN) Station: -1 (Charu Barraza RN) Exam by: joe mariamarenae (Charu Barraza RN) Membrane Status: Bulging (Charu Barraza RN) Vaginal Exam Comments: -1 to -2 bbow (Charu Barraza RN) Datetime: 03/03/2016 00:02 I/O Interventions: Wesley Cath Inserted (Charu Barraza RN) Patient Care Comments: wesley inserted therapeutically for suspected bladder spasms with aseptic technique by JOE Hdez (Charu Barraza RN) Datetime: 03/03/2016 00:00 Uterine Activity Monitor Mode: External; Palpation (Charu Barraza RN) Frequency (min): 2-4 (Charu Barraza RN) Quality: Moderate (Charu Barraza RN) Duration (sec): 50-70 (Charu Barraza RN) Resting Tone (Palpate): Relaxed (Charu Barraza RN) Assessment A Monitor Mode: External US (Charu Barraza RN) FHR Baseline Rate : 125 (Charu Cdaesel, RN) Variability: Moderate 6-25 bpm (Charu Christi, RN) Accelerations: 15X15 (Charu Christi, RN) Decelerations: None (Charu Christi, RN) Comments: Broken strip, RN remained at bedside attempting to locate FHR, monitoring impaired d/t maternal movement (Charu Barraza, RN) I/O Interventions: Wesley Cath Inserted (Belkis Hdez RN) Datetime: 03/02/2016 23:54 I/O Interventions: Up to BR (Charu Barraza RN) Patient Care Comments: Pt states she needs to pee with all ctx (Charu Barraza, RN) Datetime: 03/02/2016 23:52 Procedures: Consents Signed (Charu Christi, RN) Datetime: 03/02/2016 23:51 Comments: maternal movement (Charu Christi, RN) Datetime: 03/02/2016 23:50 Monitor Interventions for FHR: Ultrasound Adjusted (Charu Christi, RN) Comments: RN at bedside, FHR 125 bpm (Charu Christi, RN) Datetime: 03/02/2016 23:49 Pain Coping: Requesting Pain Medication or Epidural; Crying; Writhing (Charu Christi, RN) Patient Care IV/Blood Work: IV Started; IV Bolus Started; Labs Drawn with IV Start; Labs Drawn (Charu Barraza RN) Patient Care Comments: IV bolusing for epidural (Charu Barraza RN) Procedure Verify: Correct Patient Identity; Correct Side and Site are Marked; Accurate Procedure Consent Form; Agreement on Procedure to be Done; Relevant Images and Results are Properly Labeled and Displayed; Addressed Need to Administer Antibiotics or Fluids for Irrigation; Safety Precautions Based on Patient History or Medication Use (Charu Barraza RN) Anesthesia Anesthesia Plans: Epidural (Charu Cadesel, RN) Datetime: 03/02/2016 23:30 Communication Communication: Provider Orders Received; Report Given to @ Dr Patton (Charu Christi, RN) Communication Comments: Call placed to Dr Patton, orders received for pt admission, epidural PRN (Charu Christi, RN) Datetime: 03/02/2016 23:25 Vaginal Exam Dilatation (cm): 4.0 (Charu Christi, RN) Effacement (%): 60 (Charu Barraza RN) Station: -2 (Charu Barraza RN) Exam by: Guero Barraza RN (Charu Barraza RN) Vaginal Bleeding: Normal Show (Charu Barraza RN) Cervix, Consistency: Moderate (Charu Barraza RN) Cervix, Position: Midposition (Charu Barraza RN) Datetime: 03/02/2016 22:19 Patient Care Comments: monitors removed, pt instructed to ambulate 2nd floor for 1 hour, will repeat SVE after 1 hour. Pt and family agree to POC (Charu Barraza RN) Datetime: 03/02/2016 22:15 Uterine Activity Monitor Mode: External (Charu Christi, RN) Frequency (min): 3-4 (Charu Christi, RN) Quality: Mild (Charu Christi, RN) Duration (sec): 50-60 (Charu Christi, RN) Resting Tone (Palpate): Relaxed (Charu Christi, RN) Assessment A Monitor Mode: External US (Charu Christi, RN) FHR Baseline Rate : 125 (Charu Christi, RN) Variability: Moderate 6-25 bpm (Charu Christi, RN) Accelerations: 15X15 (Charu Christi, RN) Decelerations: None (Charu Christi, RN) Datetime: 03/02/2016 22:06 I/O Interventions: Up to BR (Charu Christi, RN) Datetime: 03/02/2016 22:00 Uterine Activity Monitor Mode: External; Palpation (Belkis Ketty, RN) Frequency (min): none (Belkismauri Hdez, RN) Frequency (min): q 3-5 per pt (Charu Christi, RN) Quality: Mild (Charu Christi, RN) Resting Tone (Palpate): Relaxed (Belkis Mariamasmann, RN) Assessment A Monitor Mode: External US (Belkis Hdez, RN) FHR Baseline Rate : 130 (Belkis Lizamaann, RN) Variability: Moderate 6-25 bpm (Belkis Kossmann, RN) Decelerations: None (Belkis Lizamaann, RN) Pain Pain Scale: 2 (Charu Barraza, RN) Pain Presence: Intermittent (Charu Schultel, RN) Pain Type: Cramping (Charu Christi, RN) Pain Location: Abdomen (Charu Christi, RN) Pain Goal: 1 (Charu Christi, RN) Pain Relief Measures: Comfort Measures (Charu Christi, RN) Pain Coping: Breathing Through Contractions; Writhing (Charu Christi, RN) Membrane Status: Intact (Charu Christi, RN) Vaginal Bleeding: Scant (Charu Christi, RN) Rocha's Score Dilatation (cm): 3-4 cms (Charu Barraza, RN) Effacement: 40-50_ effaced (Charu Christi, RN) Station: minus 3 (Charu Christi, RN) Consistency: Medium (Charu Christi, RN) Position: Posterior (Charu Christi, RN) Total Rocha's Score: 4 (QS system process) : 0-4 = Unfavorable cervix (QS system process) Maternal Assessment Level of Consciousness: Fully Conscious (Charu Christi, RN) DTR's/Clonus: DTRs 2+; No Clonus (Charu Christi, RN) Headache: Denies (Charu Christi, RN) Breath Sounds, Left: Clear and Equal (Charu Christi, RN) Breath Sounds, Right: Clear and Equal (Charu Christi, RN) Nausea/Vomiting: Hx of Nausea/Vomiting (Charu Christi, RN) RUQ Epigastric Pain: Denies (Charu Christi, RN) Patient Position/Activity: Right Lateral (Charu Christi, RN) Comfort Measures: Family Support (Charu Christi, RN) Teaching Instructional Method: Demo; Patient Instructed; Family/Support Person Instructed; Verbalized Understanding (Charu Barraza RN) Plan of Care: Plan of Care Discussed; Labor (Charu Barraza RN) LaborFlag: Antepartum (QS system process) Datetime: 03/02/2016 21:57 Uterine Activity Monitor Mode: Palpation (Charu Barraza RN) Monitor Interventions for UA: [place] Adjusted (Charu Barraza RN) Quality: Mild (Charu Barraza RN) Monitor Interventions for FHR: Ultrasound Adjusted (Charu Barraza RN) Datetime: 03/02/2016 21:53 Uterine Activity Monitor Mode: Palpation (Charu Christi, RN) Quality: Mild (Charu Christi, RN) Datetime: 03/02/2016 21:51 Vital Signs Stage of : Antepartum (Charu Christi, RN) NBP Sys/Kitty/Mean (mmHg): 104 (QS system process) : 53 (QS system process) : 73 (QS system process) Pulse: 90 (QS system process) Respirations: 17 (Charu Schultel, RN) Temperature (F): 98.0 (Belkis Hdez RN) Temperature (C): 36.7 (QS system process) Temperature Route: Oral (Belkis Hdez RN) LaborFlag: Antepartum (QS system process) Datetime: 03/02/2016 21:50 Comments: monitors applied (Charu Christi, RN) Datetime: 03/02/2016 21:47 I/O Interventions: Up to BR (Charu Christi, RN) Datetime: 03/02/2016 21:43 Vaginal Exam Dilatation (cm): 3.0 (Charu Barraza RN) Effacement (%): 50 (Charu Barraza RN) Station: -3 (Charu Barraza RN) Exam by: Guero Barraza RN (Charu Barraza RN) Vaginal Bleeding: Scant (Charu Barraza RN) Cervix, Consistency: Moderate (Charu Barraza RN) Cervix, Position: Posterior (Charu Barraza RN)
--- NOTE | 2016-03-03 04:46 | L&D General Admission ---
General Admit Datetime Report Generated by CPN: 03/03/2016 04:45 CARE Height (in): 64 (03/02/2016 21:38:QS system process) ALLERGIES Medication Allergies: No Known Allergies (03/02/2016) (03/02/2016 21:37:QS system process) LABS Hemoglobin: 11.5 L (03/02/2016 23:50:QS system process) Hematocrit: 35.5 L (03/02/2016 23:50:QS system process) MCV: 91 (03/02/2016 23:50:QS system process)
--- NOTE | 2016-03-03 04:46 | L&D Admission Assessment ---
LD ADM ASMT Datetime Report Generated by CPN: 03/03/2016 04:45 PATIENT ASSESSMENT Assessment Type: Triage (03/02/2016 22:00:Charu Cadesel, RN) WEIGHT Weight (lb): 227 (03/02/2016 21:38:QS system process) Weight (kg): 103.2 (03/02/2016 21:38:QS system process) BMI: 39.0 (03/02/2016 21:38:QS system process) PAIN Pain Scale: 1 (03/03/2016 01:52:Charu Barraza RN) Pain Scale: 2 (03/02/2016 22:00:Charu Barraza RN) Pain Presence: Constant (03/03/2016 01:52:Charu Barraza RN) Pain Presence: Intermittent (03/02/2016 22:00:Charu Barraza RN) Pain Type: Ache (03/03/2016 01:52:Charu Barraza RN) Pain Type: Cramping (03/02/2016 22:00:Charu Barraza RN) Pain Location: Perineum (03/03/2016 01:52:Charu Barraza RN) Pain Location: Abdomen (03/02/2016 22:00:Charu Barraza RN) Pain Goal: 0 (03/03/2016 01:52:Charu Barraza RN) Pain Goal: 1 (03/02/2016 22:00:Charu Barraza RN) Pain Related to Contraction: Yes (03/02/2016 22:00:Charu Barraza RN) CONTRACTIONS Frequency (min): 2-3 (03/03/2016 01:15:Charu Christi, RN) Frequency (min): 2-4 (03/03/2016 01:00:Charu Christi, RN) Frequency (min): 2-3.5 (03/03/2016 00:45:Charu Christi, RN) Frequency (min): 2-3 (03/03/2016 00:30:Charu Christi, RN) Frequency (min): 2-4 (03/03/2016 00:15:Charu Christi, RN) Frequency (min): 2-4 (03/03/2016 00:00:Charu Christi, RN) Frequency (min): 3-4 (03/02/2016 22:15:Charu Christi, RN) Frequency (min): none (03/02/2016 22:00:Belkis Hdez RN) Frequency (min): q 3-5 per pt (03/02/2016 22:00:Charu Christi, RN) Duration (sec): 50-90 (03/03/2016 01:15:Charu Christi, RN) Duration (sec): 50-90 (03/03/2016 01:00:Charu Christi, RN) Duration (sec): 50-80 (03/03/2016 00:45:Charu Christi, RN) Duration (sec): 60-90 (03/03/2016 00:30:Charu Christi, RN) Duration (sec): 60-90 (03/03/2016 00:15:Charu Christi, RN) Duration (sec): 50-70 (03/03/2016 00:00:Charu Christi, RN) Duration (sec): 50-60 (03/02/2016 22:15:Charu Christi, RN) Quality: Moderate to Strong (03/03/2016 01:15:Charu Christi, RN) Quality: Moderate (03/03/2016 01:00:Charu Christi, RN) Quality: Moderate (03/03/2016 00:45:Charu Christi, RN) Quality: Moderate (03/03/2016 00:30:Charu Christi, RN) Quality: Moderate (03/03/2016 00:15:Charu Christi, RN) Quality: Moderate (03/03/2016 00:00:Charu Christi, RN) Quality: Mild (03/02/2016 22:15:Charu Christi, RN) Quality: Mild (03/02/2016 22:00:Charu Christi, RN) Quality: Mild (03/02/2016 21:57:Charu Christi, RN) Quality: Mild (03/02/2016 21:53:Charu Christi, RN) Resting Tone [place]: Relaxed (03/03/2016 01:15:Charu Christi, RN) Resting Tone [place]: Relaxed (03/03/2016 01:00:Charu Christi, RN) Resting Tone [place]: Relaxed (03/03/2016 00:45:Charu Christi, RN) Resting Tone [place]: Relaxed (03/03/2016 00:30:Charu Christi, RN) Resting Tone [place]: Relaxed (03/03/2016 00:15:Charu Christi, RN) Resting Tone [place]: Relaxed (03/03/2016 00:00:Charu Christi, RN) Resting Tone [place]: Relaxed (03/02/2016 22:15:Charu Christi, RN) Resting Tone [place]: Relaxed (03/02/2016 22:00:Belkis Hdez RN) Contraction Comments: Ctx monitored with palpation by RN during epidural procedure (03/03/2016 01:00:Charu Christi, RN) VAGINAL EXAM Dilatation (cm): 10.0 (03/03/2016 01:11:Belkis Hdez RN) Dilatation (cm): 7.0 (03/03/2016 00:33:Charu Barraza RN) Dilatation (cm): 7.0 (03/03/2016 00:28:Charu Barraza RN) Dilatation (cm): 6.0 (03/03/2016 00:03:Charu Barraza RN) Dilatation (cm): 4.0 (03/02/2016 23:25:Charu Barraza RN) Dilatation (cm): 3.0 (03/02/2016 21:43:Charu Barraza RN) Effacement (%): 100 (03/03/2016 01:11:Belkis Hdez RN) Effacement (%): 80 (03/03/2016 00:33:Charu Barraza RN) Effacement (%): 80 (03/03/2016 00:28:Charu Barraza RN) Effacement (%): 90 (03/03/2016 00:03:Charu Barraza RN) Effacement (%): 60 (03/02/2016 23:25:Charu Barraza RN) Effacement (%): 50 (03/02/2016 21:43:Charu Barraza RN) Station: 2 (03/03/2016 01:11:Belkis Hdez RN) Station: -1 (03/03/2016 00:33:Charu Barraza RN) Station: -2 (03/03/2016 00:28:Charu Barraza RN) Station: -1 (03/03/2016 00:03:Charu Barraza RN) Station: -2 (03/02/2016 23:25:Charu Barraza RN) Station: -3 (03/02/2016 21:43:Charu Barraza RN) Membranes Status: Disregard previous strip charting done in error (03/03/2016 00:30:Charu Barraza RN) Membranes Status: Ruptured (03/03/2016 00:21:Charu Barraza RN) Membranes Status: Bulging (03/03/2016 00:03:Charu Barraza RN) Membranes Status: Intact (03/02/2016 22:00:Charu Barraza RN) Membranes Rupture D/ (03/03/2016 00:21:Charu Barraza RN) ROM Method: Spontaneous (03/03/2016 00:21:Charu Barraza RN) Amniotic Fluid Color: Light Meconium (03/03/2016 00:21:Charu Barraza RN) Amniotic Fluid Amount: Moderate (03/03/2016 00:21:Charu Barraza RN) BARRIENTOS'S SCORE Barrientos's Score Dilatation (cm): 3-4 cms (03/02/2016 22:00:Charu Barraza RN) Barrientos's Score Effacement (%): 40-50_ effaced (03/02/2016 22:00:Charu Barraza RN) Barrientos's Score Station: minus 3 (03/02/2016 22:00:Charu Barraza RN) Barrientos's Score Consistency: Medium (03/02/2016 22:00:Charu Barraza RN) Barrientos's Score Position: Posterior (03/02/2016 22:00:Charu Barraza RN) Total Barrientos's Score: 4 (03/02/2016 22:00:QS system process) Barrientos's Score Text: 0-4 = Unfavorable cervix (03/02/2016 22:00:QS system process) NEURO Level of Consciousness: Fully Conscious (03/02/2016 22:00:Charu Christi, RN) DTR's/Clonus: DTRs 2+; No Clonus (03/02/2016 22:00:Charu Christi, RN) Headache: Denies (03/02/2016 22:00:Charu Christi, RN) Dizziness: No (03/02/2016 22:00:Charu Christi, RN) Blurred Vision: No (03/02/2016 22:00:Charu Christi, RN) Extremity Numbness/Tingling : None (03/02/2016 22:00:Charu Christi, RN) Extremity Movement: Full Range of Motion (03/02/2016 22:00:Charu Christi, RN) CARDIOVASCULAR Heart Rhythm: Regular (03/02/2016 22:00:Charu Christi, RN) Nailbeds: [place] (03/02/2016 22:00:Charu Barraza RN) Capillary Refill: Less than 3 Seconds (03/02/2016 22:00:Charu Barraza RN) Lower Extremities Edema: Bilateral Lower Extremities (Annotations: Pt has had swelling in legs throughout as documented in prenatals ) (03/02/2016 22:00:Charu Barraza RN) Lower Extremities Edema Degree: Pitting; 3+ (03/02/2016 22:00:Charu Barraza RN) Upper Extremities Edema: None (03/02/2016 22:00:Charu Barraza RN) Upper Extremities Edema Degree: None (03/02/2016 22:00:Charu Barraza RN) Facial Edema: None (03/02/2016 22:00:Charu Barraza RN) Rowan's Sign Left Leg: Negative (03/02/2016 22:00:Charu Barraza RN) Rowan's Sign Right Leg: Negative (03/02/2016 22:00:Charu Barraza RN) RESPIRATORY Respiratory Effort: Unlabored; Regular Rhythm; Equal Expansion (03/02/2016 22:00:Charu Barraza RN) Breath Sounds, Left: Clear and Equal (03/02/2016 22:00:Charu Barraza RN) Breath Sounds, Right: Clear and Equal (03/02/2016 22:00:Charu Barraza RN) Cough Productivity: None (03/02/2016 22:00:Charu Barraza RN) GASTROINTESTINAL Nausea/Vomiting: Hx of Nausea/Vomiting (03/02/2016 22:00:Charu Christi, RN) Bowel Sounds: Normoactive; All Quadrants (03/02/2016 22:00:Charu Christi, RN) RUQ Epigastric Pain: Denies (03/02/2016 22:00:Charu Christi, RN) Diet Type: Regular diet (03/02/2016 22:00:Charu Christi, RN) Last Meal: 03/02/2016 18:00 (03/02/2016 22:00:Charu Christi, RN) GENITOURINARY Bladder: Nondistended (03/02/2016 22:00:Charu Christi, RN) Frequency of Urination: No (03/02/2016 22:00:Charu Christi, RN) Urination Burning: No (03/02/2016 22:00:Charu Christi, RN) CVA Tenderness: No (03/02/2016 22:00:Charu Christi, RN) Vaginal Bleeding: None (03/02/2016 22:00:Charu Christi, RN) INTEGUMENTARY Skin Color: Normal for Race (03/02/2016 22:00:Charu Christi, RN) Skin Temperature: Warm (03/02/2016 22:00:Charu Christi, RN) Skin Moisture: Dry (03/02/2016 22:00:Charu Christi, RN) DOYLE SKIN ASSESSMENT Doyle Scale Sensory Perception: No Impairment- Responds to verbal commands. Has no sensory deficit which would limit ability to feel or voice pain or discomfort (03/02/2016 22:00:Charu Barraza RN) Doyle Scale Moisture: Rarely Moist- Skin is usually dry. Linen only requires changing at routine intervals (03/02/2016 22:00:Charu Barraza RN) Doyle Scale Activity: Walks Frequently- Walks outside the room at least twice a day and inside room at least every 2 hours during the day. (03/02/2016 22:00:Charu Barraza RN) Doyle Scale Mobility: No Limitations- Makes major and frequent changes in position without assistance (03/02/2016 22:00:Charu Barraza RN) Doyle Scale Nutrition: Excellent- Eats most of every meal. Never refuses a meal. Usually eats a total of 4 or more servings of meat and dairy products. Occasionally eats between meals. Does not require supplementation (03/02/2016 22:00:Cahru Barraza RN) Doyle Scale Friction and Shear: No Apparent Problem- Moves in bed and in chair independently and has sufficient muscle strength to lift up completely during move. Maintains good position in bed or chair at all times (03/02/2016 22:00:Charu Barraza RN) Doyle Scale Total: 23 (03/02/2016 22:00:QS system process) Doyle Scale Risk: No Risk of Pressure Ulcer Noted at this Time (03/02/2016 22:00:QS system process) SUPPORT Family Support: Family supportive; Child(alec) visited (03/02/2016 22:00:Charu Barraza RN) Emotional State: Calm/Relaxed; Crying (Annotations: normal affect, pt crying with some ctx ) (03/02/2016 22:00:Charu Barraza RN) SAFETY Call [place] Within Reach: Yes (03/02/2016 22:00:Charu Barraza RN) Side Rails Up: Yes (03/02/2016 22:00:Charu Barraza RN) Bed Wheels Locked: Yes (03/02/2016 22:00:Charu Barraza RN) Arm Bands Present: Yes (03/02/2016 22:00:Charu Barraza RN) FALL SCREEN Fall Risk History of Falling: (0) No (03/02/2016 22:00:Charu Barraza RN) Fall Risk Secondary Diagnosis: (0) No (03/02/2016 22:00:Charu Barraza RN) Fall Risk Ambulatory Aid: (0) None/Bedrest/Wheelchair/Nurse Assist (03/02/2016 22:00:Charu Barraza RN) Fall Risk IV Therapy: (0) No (03/02/2016 22:00:Charu Barraza RN) Fall Risk Gait: (0) Normal/Bedrest/Immobile (03/02/2016 22:00:Charu Barraza RN) Fall Risk Mental Status: (0) Oriented to Own Ability (03/02/2016 22:00:Charu Barraza RN) Fall Risk Score: 0 (03/02/2016 22:00:QS system process) Fall Risk Score Definition: No Risk: No action required (03/02/2016 22:00:QS system process) RECENT TRAVEL/INFECTIOUS DISEASE Recent Exp Communicable Disease: No (03/02/2016 22:00:Charu Barraza RN) Cough or Fever: No (03/02/2016 22:00:Charu Barraza RN) Foreign Travel Past 10 Days: No (03/02/2016 22:00:Charu Barraza RN) Open Wounds or Sores: No (03/02/2016 22:00:Charu Barraza RN) Prior Antibiotic Resistance Tx: No (03/02/2016 22:00:Charu Barraza RN) Cultures Obtained: Not Applicable (03/02/2016 22:00:Charu Barraza RN) Isolation Initiated: No (03/02/2016 22:00:Charu Barraza RN) Pt/Family Education: Not Applicable (03/02/2016 22:00:Charu Barraza RN) BABY A FHR Baseline Rate (bpm) Baby A: 120 (03/03/2016 01:15:Charu Barraza RN) FHR Baseline Rate (bpm) Baby A: 125 (03/03/2016 00:45:Charu Barraza RN) FHR Baseline Rate (bpm) Baby A: 135 (03/03/2016 00:30:Charu Barraza RN) FHR Baseline Rate (bpm) Baby A: 125 (03/03/2016 00:15:Charu Barraza RN) FHR Baseline Rate (bpm) Baby A: 125 (03/03/2016 00:00:Charu Barraza RN) FHR Baseline Rate (bpm) Baby A: 125 (03/02/2016 22:15:Charu Barraza RN) FHR Baseline Rate (bpm) Baby A: 130 (03/02/2016 22:00:Belkis Hdez RN) Variability Baby A: Minimal - Undetectable to <=5 bpm (03/03/2016 01:15:Charu Barraza RN) Variability Baby A: Moderate 6-25 bpm (03/03/2016 00:45:Charu Barraza RN) Variability Baby A: Moderate 6-25 bpm (03/03/2016 00:30:Charu Barraza RN) Variability Baby A: Moderate 6-25 bpm (03/03/2016 00:15:Charu Barraza RN) Variability Baby A: Moderate 6-25 bpm (03/03/2016 00:00:Charu Barraza RN) Variability Baby A: Moderate 6-25 bpm (03/02/2016 22:15:Charu Barraza RN) Variability Baby A: Moderate 6-25 bpm (03/02/2016 22:00:Belkis Hdez RN) Accelerations Baby A: None (03/03/2016 01:15:Charu Barraza RN) Accelerations Baby A: None (03/03/2016 00:45:Charu Barraza RN) Accelerations Baby A: 15X15 (03/03/2016 00:30:Charu Barraza RN) Accelerations Baby A: 15X15 (03/03/2016 00:15:Charu Barraza RN) Accelerations Baby A: 15X15 (03/03/2016 00:00:Charu Barraza RN) Accelerations Baby A: 15X15 (03/02/2016 22:15:Charu Barraza RN) Decelerations Baby A: Late; Prolonged (03/03/2016 01:15:Charu Barraza RN) Decelerations Baby A: Early; Variable (03/03/2016 00:45:Charu Barraza RN) Decelerations Baby A: Early; Variable (03/03/2016 00:30:Charu Barraza RN) Decelerations Baby A: None (03/03/2016 00:15:Charu Barraza RN) Decelerations Baby A: None (03/03/2016 00:00:Charu Barraza RN) Decelerations Baby A: None (03/02/2016 22:15:Charu Barraza RN) Decelerations Baby A: None (03/02/2016 22:00:Belkis Hdez RN)
--- NOTE | 2016-03-03 06:25 | L&D Current Admission ---
Current Admit Datetime Report Generated by CPN: 03/03/2016 06:00 ADMISSION INFORMATION Current Admit Date/Time: 03/03/2016 00:08 (03/02/2016 22:00:Charu Barraza RN) Reason for Admission: Onset of Labor (03/02/2016 22:00:Charu Barraza RN) Chief Complaint: Contractions (03/02/2016 22:00:Charu Barraza RN) Medications During : Ferrous Sulfate (Iron) (03/02/2016 22:00:Charu Barraza RN) Meds During -Oth: diclegis, iron, vit b/vit c (03/02/2016 22:00:Charu Barraza RN) EGA per Dates: 40.4 (03/02/2016 22:00:QS system process) Method of Arrival: Wheelchair (03/02/2016 22:00:Charu Barraza RN) Admitted From: Home (03/02/2016 22:00:Chaur Barraza RN) Reason for Induction: Not Applicable (03/02/2016 22:00:Charu Barraza RN) Records Available: Yes (03/02/2016 22:00:Charu Barraza RN) General Admission Information: Reviewed; Updated; Confirmed (03/02/2016 22:00:Charu Barraza RN) General Admission Reviewed By: Guero Barraza RN (03/02/2016 22:00:Charu Barraza RN) BELONGINGS/ADVANCED DIRECTIVES Other Belongings: see [facility] belongings form (03/02/2016 22:00:Charu Barraza RN) Advance Direct for Healthcare: No, and Wants No Information (03/02/2016 22:00:Charu Barraza RN) Durable Power of [place]: No (03/02/2016 22:00:Charu Barraza RN) Living Will: No (03/02/2016 22:00:Charu Barraza RN) Organ Donor: Yes (03/02/2016 22:00:Charu Barraza RN) Pt Rights Information Given: Yes (03/02/2016 22:00:Charu Barraza RN) Pt Understands Pt Rights: Yes (03/02/2016 22:00:Charu Barraza RN) LEARNING ASSESSMENT Knowledge Level: Understands L_D Process (03/02/2016 22:00:Charu Barraza RN) Barriers to Learning: Emotional State; Pain (03/02/2016 22:00:Charu Barraza RN) Learning Readiness: Unable to Participate (03/02/2016 22:00:Charu Barraza RN) Learning Needs: Labor and Delivery Process; Pain Management; Symptoms to Report; Treatment Plan; Medication; Diagnosis; Nutrition; Equipment; Infant Care (03/02/2016 22:00:Charu Barraza RN) DOMESTIC VIOLANCE SCREENING Reason Unable to Complete Screen: No Opportunity to Talk Privately (03/02/2016 22:00:Charu Barraza RN) NUTRITIONAL/FUNCTIONAL SCREENING Problem with Appetite >5 Days: No (03/02/2016 22:00:Charu Barraza RN) Chew/Swallow Difficulties: No (03/02/2016 22:00:Charu Barraza RN) Inappropriate Wt Gain/Loss: No (03/02/2016 22:00:Charu Barraza RN) Presence Skin Breakdown/Ulcer: No (03/02/2016 22:00:Charu Barraza RN) Special Diet: No (03/02/2016 22:00:Charu Barraza RN) Pt Requests Orchid Hand Visit: No (03/02/2016 22:00:Charu Barraza RN) Hx of Any of the Following?: N/A (03/02/2016 22:00:Charu Barraza RN) New Diagnosis of: N/A (03/02/2016 22:00:Charu Barraza RN) Requires Assist w/Ambulation: No (03/02/2016 22:00:Charu Barraza RN) Uses Assist Device to Ambulate: No (03/02/2016 22:00:Charu Barraza RN) Pt Requires Help w/ADL's: No (03/02/2016 22:00:Charu Barraza RN)
--- NOTE | 2016-03-03 06:26 | L&D General Admission ---
General Admit Datetime Report Generated by CPN: 03/03/2016 06:00 INFORMATION Patient Age: 30 (02/15/2016 10:59:QS system process) EDC: 02/28/2016 00:00 (02/15/2016 11:02:Maryanne Lindsey RN) : 3 (02/15/2016 11:02:Maryanne Lindsey RN) Para: 1 (02/25/2016 21:30:Maryanne Lindsey RN) Baby, Number in Womb: 1 (02/25/2016 21:30:Maryanne Lindsey RN) CARE Primary Piece Work Inspector: [facility] (02/15/2016 11:02:Maryanne Lindsey RN) Month of 1st Visit: September 2015 (02/15/2016 11:02:Maryanne Lindsey RN) Adequate Care: No (02/15/2016 11:02:Maryanne Lindsey RN) Height (in): 64 (03/02/2016 21:38:QS system process) ALLERGIES Medication Allergy: No (02/15/2016 11:02:Maryanne Lindsey RN) Medication Allergies: No Known Allergies (03/02/2016) (03/02/2016 21:37:QS system process) Latex Allergy: No Latex Allergies (02/15/2016 11:02:Maryanne Lindsey RN) COMMUNICATION Primary Language: Turkmen (02/15/2016 11:02:Maryanne Lindsey RN) Medical Tx Preferred Language: Turkmen (02/15/2016 11:02:Charu Barraza RN) Turkmen Communication Ability: Speaks Turkmen; Reads Turkmen (02/15/2016 11:02:Belkis Hdez RN) Communication Barrier(s): None (02/15/2016 11:02:Belkis Hdez RN) DEMOGRAPHICS Address: [address] [place] [id number] (02/15/2016 10:59:QS system process) Zipcode: [address] (02/15/2016 10:59:QS system process) Home (02/15/2016 10:59:QS system process) SSN: [id number] (02/15/2016 10:59:QS system process) Next of Kin Name: ADAM CALLEJAS (02/15/2016 10:59:QS system process) Next of Kin (02/15/2016 10:59:QS system process) Next of Kin Relationship: MO (02/15/2016 10:59:QS system process) Date of : 1985 (02/15/2016 10:59:QS system process) Marital Status: Legally (02/15/2016 10:59:QS system process) Sex: Female (02/15/2016 10:59:QS system process) Race: (02/15/2016 10:59:QS system process) Ethnicity: Non- or (02/15/2016 10:59:QS system process) Jainism: None (02/15/2016 10:59:QS system process) FOB Involved: No (02/15/2016 11:02:Charu Barraza RN) DRUG AND ALCOHOL USE Alcohol: No (02/15/2016 11:02:Charu Barraza RN) Cigarettes: Current Everyday Smoker. [id number] (02/15/2016 11:02:Charu Barraza RN) Cigarette Comments: 1/2 ppd (02/15/2016 11:02:Charu Barraza RN) Marijuana: No (02/15/2016 11:02:Charu Barraza RN) Cocaine: No (02/15/2016 11:02:Charu Barraza RN) Other Illicit Drugs: No (02/15/2016 11:02:Charu Barraza RN) VACCINE HISTORY Influenza Vaccine: No (02/15/2016 11:02:Charu Barraza RN) Pneumococcal Vaccine: No (02/15/2016 11:02:Charu Barraza RN) Tetanus Vaccine: Yes (02/15/2016 11:02:Charu Barraza RN) Tdap Vaccine: Yes (02/15/2016 11:02:Charu Barraza RN) Hepatitis B Vaccine: Yes (02/15/2016 11:02:Charu Barraza RN) Activities Aide: [facility] (02/15/2016 11:02:Belkis Hdez RN) Feeding Preference: Breast (02/15/2016 11:02:Charu Barraza RN) Benefit of Breast Feed Discussed: Yes (02/15/2016 11:02:Charu Barraza RN) Circumcision: Yes (02/15/2016 11:02:Charu Barraza RN) Tubal Authorization Signed: N/A (02/15/2016 11:02:Charu Barraza RN) Consent: N/A (02/15/2016 11:02:Charu Barraza RN) Consent Signed: N/A (02/15/2016 11:02:Charu Barraza RN) Pain Management Plans: Medications; Epidural (02/15/2016 11:02:Charu Barraza RN) Plans for Labor and Delivery: None (02/15/2016 11:02:Belkis Hdez RN) Support Person: Tamica Steele (02/15/2016 11:02:Charu Barraza RN) Support Person Relationship: Mother (02/15/2016 11:02:Charu Barraza RN) Cultural/Spritual Practice: No (02/15/2016 11:02:Charu Barraza RN) Spir/Cult Dietary Needs: No (02/15/2016 11:02:Charu Barraza RN) LIVING SITUATION/DISCHARGE PLAN Living Arrangements: House (02/15/2016 11:02:Charu Barraza RN) Adequate Access to:: Electric; Heat; Refrigeration; Plumbing/Running water; Phone; Transportation (02/15/2016 11:02:Charu Barraza RN) WIC Program: Yes (02/15/2016 11:02:Charu Barraza RN) Discharge Blue Leather Sorter Person: Tamica Steele (02/15/2016 11:02:Charu Barraza RN) Person to Help after Discharge: Tamica Steele (02/15/2016 11:02:Charu Barraza RN) Currently Using Commun Resources: Yes (02/15/2016 11:02:Charu Barraza RN) Specify Current Resource Used: medicaid (02/15/2016 11:02:Charu Barraza RN) Car Seat for Discharge: Yes (02/15/2016 11:02:Charu Barraza RN) Adoption Requested: No (02/15/2016 11:02:Charu Barraza RN) Pt Contact w/infant Post : N/A (02/15/2016 11:02:Charu Barraza RN) LABS Blood Type: A Positive (02/15/2016 11:02:Maryanne Lindsey RN) Antibody Screen: Negative (02/15/2016 11:02:Karime Henson RN) Rho(G) this : Not Applicable (02/15/2016 11:02:Karime Henson RN) Hemoglobin: 11.5 L (03/02/2016 23:50:QS system process) Hematocrit: 35.5 L (03/02/2016 23:50:QS system process) MCV: 91 (03/02/2016 23:50:QS system process) Group Beta Strep: Negative (02/15/2016 11:02:Karime Henson RN) Gonorrhea: Negative (02/15/2016 11:02:Maryanne Lindsey RN) Chlamydia: Negative (02/15/2016 11:02:Maryanne Lindsey RN) RPR/VDRL: Nonreactive (02/15/2016 11:02:Maryanne Lindsey RN) Hepatitis B: Negative (02/15/2016 11:02:Maryanne Lindsey RN) Rubella: Immune (02/15/2016 11:02:Maryanne Lindsey RN) OB/PREVIOUS HISTORY Previous Procedures: Ultrasound; NST (02/15/2016 11:02:Belkis Hdez RN) Current Procedures: Ultrasound; NST (02/15/2016 11:02:Belkis Hdez RN) History of Previous : No (02/15/2016 11:02:Charu Barraza RN) History of Gestational Diabetes: No (02/15/2016 11:02:Charu Barraza RN) History of PIH: No (02/15/2016 11:02:Charu Barraza RN) History of Incompetent Cervix: No (02/15/2016 11:02:Charu Barraza RN) History of Placenta Previa/Abrup: No (02/15/2016 11:02:Charu Barraza RN) History of Macrosomia: No (02/15/2016 11:02:Charu Barraza RN) History of IUGR: No (02/15/2016 11:02:Charu Barraza RN) History of Hemorrhage: No (02/15/2016 11:02:Charu Barraza RN) History of Loss/Stillborn: No (02/15/2016 11:02:Charu Barraza RN) History of : No (02/15/2016 11:02:Charu Barraza RN) History of D (Rh) Sensitization: No (02/15/2016 11:02:Charu Barraza RN) History Recurrent Loss/Stillborn: No (02/15/2016 11:02:Charu Barraza RN) History Depression/PP Depression: Yes (02/15/2016 11:02:Charu Barraza RN) History of Uterine Anomaly/KATHY: No (02/15/2016 11:02:Charu Barraza RN) History of Infertility: No (02/15/2016 11:02:Charu Barraza RN) History of ART Treatment: No (02/15/2016 11:02:Charu Barraza RN) History of KATHY: No (02/15/2016 11:02:Charu Barraza RN) Comments Obstetrical History: G1: 2008 G2: SAB 2009 G3: Current, late entry to care 20 wk 6 d (02/15/2016 11:02:Charu Barraza RN) MEDICAL HISTORY Med Hx Diabetes: No (02/15/2016 11:02:Charu Barraza RN) Med Hx Hypertension: No (02/15/2016 11:02:Charu Barraza RN) Med Hx Heart Disease: No (02/15/2016 11:02:Charu Barraza RN) Med Hx Autoimmune Disorder: No (02/15/2016 11:02:Charu Barraza RN) Med Hx Kidney Disease/UTI: No (02/15/2016 11:02:Charu Barraza RN) Med Hx Neurologic/Epilepsy: No (02/15/2016 11:02:Charu Barraza RN) Med Hx Psychiatric Disorders: No (02/15/2016 11:02:Charu Barraza RN) Med Hx Hepatitis/Liver Disease: No (02/15/2016 11:02:Charu Barraza RN) Med Hx Varicosities/Phlebitis: No (02/15/2016 11:02:Charu Barraza RN) Med Hx Thyroid Dysfunction: No (02/15/2016 11:02:Charu Barraza RN) Med Hx Trauma/Violence: No (02/15/2016 11:02:Charu Barraza RN) Med Hx Blood Transfusion: No (02/15/2016 11:02:Charu Barraza RN) Med Hx Pulmonary (Asthma,TB): No (02/15/2016 11:02:Charu Barraza RN) Med Hx Breast: No (02/15/2016 11:02:Charu Barraza RN) Med Hx VULCANIZING MACHINE OPERATOR Surgery: No (02/15/2016 11:02:Charu Barraza RN) Med Hx Hospitalization/Surgery: Yes (02/15/2016 11:02:Charu Barraza RN) Med Hx Anesthetic Complications: No (02/15/2016 11:02:Charu Barraza RN) Med Hx Abnormal Pap Smear: Yes (02/15/2016 11:02:Charu Barraza RN) Other Medical Diseases: No (02/15/2016 11:02:Charu Barraza RN) Med Hx Significant Family Hx: No (02/15/2016 11:02:Charu Barraza RN) Details of Med/Surg Hx: LGSIL pap; appy 2013; depression/anxiety, with meds in past (02/15/2016 11:02:Charu Barraza RN) INFECTIOUS HISTORY Inf Hx Gonorrhea: No (02/15/2016 11:02:Charu Barraza RN) Inf Hx Chlamydia: No (02/15/2016 11:02:Charu Barraza RN) Inf Hx Syphilis: No (02/15/2016 11:02:Charu Barraza RN) Inf Hx HIV/AIDS: No (02/15/2016 11:02:Charu Barraza RN) Inf Hx Human Papilloma Virus: No (02/15/2016 11:02:Charu Barraza RN) Inf Hx Pt/Partner Genital Herpes: No (02/15/2016 11:02:Charu Barraza RN) Inf Hx Tuberculosis/Exposure: No (02/15/2016 11:02:Charu Barraza RN) Inf Hx Hepatitis B,C: No (02/15/2016 11:02:Charu Barraza RN) Inf Hx Rash or Viral Illness: No (02/15/2016 11:02:Charu Barraza RN) GENETIC HISTORY Gen Hx Age >=35 at ROXIE: No (02/15/2016 11:02:Charu Barraza RN) Gen Hx Thalassemia: No (02/15/2016 11:02:Charu Barraza RN) Gen Hx Congenital Heart Defect: No (02/15/2016 11:02:Charu Barraza RN) Gen Hx Neural Tube Defect: No (02/15/2016 11:02:Charu Barraza RN) Gen Hx Down's Syndrome: No (02/15/2016 11:02:Charu Barraza RN) Gen Hx Gamaliel-Sachs: No (02/15/2016 11:02:Charu Barraza RN) Gen Hx Aura: No (02/15/2016 11:02:Charu Barraza RN) Gen Hx Familial Dysautonomia: No (02/15/2016 11:02:Charu Barraza RN) Gen Hx Sickle Cell Disease/Trait: No (02/15/2016 11:02:Charu Barraza RN) Gen Hx Hemophilia/Blood Disorder: No (02/15/2016 11:02:Charu Barraza RN) Gen Hx Muscular Dystrophy: No (02/15/2016 11:02:Charu Barraza RN) Gen Hx Cystic Fibrosis: No (02/15/2016 11:02:Charu Barraza RN) Gen Hx Huntingtons Chorea: No (02/15/2016 11:02:Charu Barraza RN) Gen Hx Mental Retardation/Autism: No (02/15/2016 11:02:Charu Barraza RN) Gen Hx Tested for Fragile X: No (02/15/2016 11:02:Charu Barraza RN) Gen Hx Other Inher/Chromosomal: No (02/15/2016 11:02:Charu Barraza RN) Gen Hx Maternal Metabolic DO: No (02/15/2016 11:02:Charu Barraza RN) Gen Hx Pt Father or FOB Defect: No (02/15/2016 11:02:Charu Barraza RN) Gen Hx Other Genetic History: No (02/15/2016 11:02:Charu Barraza RN) Gen Hx Drugs/Meds since LMP: Yes (02/15/2016 11:02:Charu Barraza RN) Gen Hx Medications: diclegis, iron, vit b/ vit c (02/15/2016 11:02:Charu Barraza RN)
--- NOTE | 2016-03-03 07:31 | Admission Physical ---
Datetime Report Generated by CPN: 03/03/2016 07:31 CURRENT ADMISSION Chief Complaint: Uterine Contractions Indication for Induction: Not Applicable Admit Plan: Admit to Unit; Initiate Labor Protocol ALLERGIES Medication Allergies: No Medication Allergies: No Known Allergies (03/02/2016) Latex: No Latex Allergies OBSTETRICAL HISTORY EDC: 02/28/2016 00:00 : 3 Para: 1 Gestational Diabetes: No Rh Sensitization: No Incompetent Cervix: No KATHY: No Infertility: No ART Treatment: No Uterine Anomaly: No IUGR: No Hx Previous C/S: No Macrosomia: No Hx Loss/Stillborn: No PIH: No Hx : No Placenta Previa/Abruption: No Depression/PP Depression: Yes PTL/PROM: No Post Hemorrhage: No Current Procedures: Ultrasound; NST Obstetrical History Comments: G1: 2007 G2: SAB 2008 G3: Current, late entry to care 20 wk 6 d SEE RECORDS Alcohol: No Marijuana : No Cocaine: No Other Illicit Drugs: No Cigarettes: Current Everyday Smoker. [id number] Cigarette Comments: 1/2 ppd MEDICAL HISTORY Diabetes: No Blood Transfusion: No Pulmonary Disease (Asthma, TB): No Breast Disease: No Hypertension: No Qa Test Analyst Surgery: No Heart Disease: No Hosp/Surgery: Yes Autoimmune Disorder: No Anesthetic Complications: No Kidney Disease: No Abnormal Pap Smear: Yes Neuro/Epilepsy: No Psychiatric Disorders: No Other Medical Diseases: No Hepatitis/Liver Disease: No Significant Family History: No Varicosities/Phlebitis: No Trauma/Violence : No Thyroid Dysfunction: No Medical History Comments: LGSIL pap; appy 2013; depression/anxiety, with meds in past INFECTIOUS HISTORY Gonorrhea: No Genital Herpes: No Chlamydia: No Tuberculosis: No Syphilis: No Hepatitis: No HIV/AIDS Exposure: No Rash or Viral Illness: No HPV: No PHYSICAL EXAM General: Normal HEENT: Normal Neurologic: Normal Thyroid: Normal Heart: Normal Lungs: Normal Breast: Deferred Back: Normal Abdomen: Normal Genitourinary Exam: Normal Extremities: Normal DTRs: Normal Pelvic Type: Adequate Vital Signs: Reviewed VAGINAL EXAM Dilatation: 6 Effacement: 90 Station: -1 MEMBRANES Pooling: Positive Membranes: Ruptured Amniotic Fluid Color: Clear FETUS A EGA: 40.4 FHR- Baseline: 140 Variability: Moderate 6-25bpm Accelerations: 15X15 Decelerations: None FHR Category: Category I Presentation: Vertex Admit Comment: efw 7-8 lbs PLANS FOR LABOR AND DELIVERY Labor and Delivery: None Pain Management: Medications; Epidural Feeding Preference: Breast Benefit of Breast Feed Discussed: Yes Circumcision: Yes INFORMED CONSENT Signature: with User ID: [email or web address]
--- NOTE | 2016-03-03 08:00 | L&D Flow Sheet ---
LD Flowsheet Datetime Report Generated by CPN: 03/03/2016 08:00 Datetime: 03/03/2016 07:23 Vital Signs Stage of : Recovery (Charu Barraza RN) NBP Sys/Kitty/Mean (mmHg): 127 (QS system process) : 64 (QS system process) : 90 (QS system process) Pulse: 78 (QS system process) Respirations: 18 (Charu Barraza RN) Temperature (F): 98.3 (Charu Christi, RN) Temperature (C): 36.8 (QS system process) Temperature Route: Oral (Charu Cadesel, RN) Datetime: 03/03/2016 03:54 NBP Sys/Kitty/Mean (mmHg): 123 (QS system process) : 60 (QS system process) : 85 (QS system process) Pulse: 87 (QS system process) Datetime: 03/03/2016 03:38 NBP Sys/Kitty/Mean (mmHg): 118 (QS system process) : 58 (QS system process) : 83 (QS system process) Pulse: 75 (QS system process) Datetime: 03/03/2016 03:24 NBP Sys/Kitty/Mean (mmHg): 120 (QS system process) : 59 (QS system process) : 84 (QS system process) Pulse: 77 (QS system process) Datetime: 03/03/2016 02:53 NBP Sys/Kitty/Mean (mmHg): 120 (QS system process) : 58 (QS system process) : 83 (QS system process) Pulse: 83 (QS system process) Datetime: 03/03/2016 02:38 NBP Sys/Kitty/Mean (mmHg): 121 (QS system process) : 56 (QS system process) : 80 (QS system process) Pulse: 83 (QS system process) Datetime: 03/03/2016 02:24 NBP Sys/Kitty/Mean (mmHg): 109 (QS system process) : 55 (QS system process) : 76 (QS system process) Pulse: 86 (QS system process) Respirations: 19 (Charu Christi, RN) Temperature (F): 98.0 (Charu Christi, RN) Temperature (C): 36.7 (QS system process) Datetime: 03/03/2016 02:09 NBP Sys/Kitty/Mean (mmHg): 104 (QS system process) : 51 (QS system process) : 74 (QS system process) Pulse: 86 (QS system process) Datetime: 03/03/2016 01:52 Pain Pain Scale: 1 (Charu Christi, RN) Pain Presence: Constant (Charu Christi, RN) Pain Type: Ache (Charu Christi, RN) Pain Location: Perineum (Charu Christi, RN) Pain Goal: 0 (Charu Christi, RN) Pain Relief Measures: Pain Medication Given (Charu Christi, RN) Datetime: 03/03/2016 01:38 NBP Sys/Kitty/Mean (mmHg): 101 (QS system process) : 56 (QS system process) : 77 (QS system process) Pulse: 96 (QS system process) Datetime: 03/03/2016 01:23 NBP Sys/Kitty/Mean (mmHg): 113 (QS system process) : 52 (QS system process) : 78 (QS system process) Pulse: 95 (QS system process) Datetime: 03/03/2016 01:22 Stage 2 Comments: delivery of intact placenta in sandra position, three vessel cord (Belkis Kossmann, RN) Datetime: 03/03/2016 01:20 Vital Signs Stage of : Recovery (Charu Christi, RN) Datetime: 03/03/2016 01:18 Stage 2 Comments: of viable male, to abdomen for skin to skin, dried and stimulated, cord clamped and cut, then transfered to warmer for evaluation (Belkis Hdez, RN) Datetime: 03/03/2016 01:16 Stage 2 Pushing: Coached on Pushing (Belkis HdezJOE) Pushing Position: Pushing with Contractions (Belkis Hdez RN) Pushing Progress: Descent with Pushing; with Pushing (Belkis Hdez RN) Stage 2 Comments: Nursery JOE Ribera at bedside for imminent delivery (Belkis Hdez RN) Datetime: 03/03/2016 01:15 Uterine Activity Monitor Mode: External (Charu Barraza RN) Frequency (min): 2-3 (Charu Barraza RN) Quality: Moderate to Strong (Charu Barraza RN) Duration (sec): 50-90 (Charu Barraza RN) Resting Tone (Palpate): Relaxed (Charu Barraza RN) Assessment A Monitor Mode: External US (Charu Barraza RN) FHR Baseline Rate : 120 (Charu Barraza RN) Variability: Minimal - Undetectable to <=5 bpm (Charu Barraza RN) Accelerations: None (Charu Barraza RN) Decelerations: Late; Prolonged (Charu Barraza RN) Comments: RN and provider at bedside assessing FHR and ctx (Charu Barraza RN) Stage 2 Comments: Dr. Patton at bedside for delivery, Nursery requested (Belkis Hdez RN) Datetime: 03/03/2016 01:11 Vaginal Exam Dilatation (cm): 10.0 (Belkis Hdez RN) Effacement (%): 100 (Belkis Hdez RN) Station: 2 (Belkis Hdez RN) Exam by: JOE Barraza (Belkis Hdez RN) Communication Comments: Dr. Patton in route for delivery and on unit (Belkis Hdez RN) Datetime: 03/03/2016 01:10 Pulse: 95 (QS system process) SpO2 (%): 100 (QS system process) LaborFlag: Antepartum (QS system process) Datetime: 03/03/2016 01:08 NBP Sys/Kitty/Mean (mmHg): 119 (QS system process) : 58 (QS system process) : 84 (QS system process) Pulse: 102 (QS system process) LaborFlag: Antepartum (QS system process) Datetime: 03/03/2016 01:07 NBP Sys/Kitty/Mean (mmHg): 127 (QS system process) : 61 (QS system process) : 88 (QS system process) Pulse: 92 (QS system process) LaborFlag: Antepartum (QS system process) Datetime: 03/03/2016 01:06 NBP Sys/Kitty/Mean (mmHg): 137 (QS system process) : 62 (QS system process) : 89 (QS system process) Pulse: 96 (QS system process) LaborFlag: Antepartum (QS system process) Datetime: 03/03/2016 01:05 Pulse: 111 (QS system process) SpO2 (%): 100 (QS system process) Actions for Decelerations: Side to Side; Oxygen Applied (Charu Barraza RN) Patient Position/Activity: Right Lateral (Charu Barraza RN) LaborFlag: Antepartum (QS system process) Datetime: 03/03/2016 01:04 NBP Sys/Kitty/Mean (mmHg): 142 (QS system process) : 65 (QS system process) : 94 (QS system process) Pulse: 99 (QS system process) LaborFlag: Antepartum (QS system process) Datetime: 03/03/2016 01:02 NBP Sys/Kitty/Mean (mmHg): 115 (QS system process) : 56 (QS system process) : 80 (QS system process) Pulse: 89 (QS system process) LaborFlag: Antepartum (QS system process) Datetime: 03/03/2016 01:01 NBP Sys/Kitty/Mean (mmHg): 124 (QS system process) : 60 (QS system process) : 87 (QS system process) Pulse: 90 (QS system process) LaborFlag: Antepartum (QS system process) Datetime: 03/03/2016 01:00 NBP Sys/Kitty/Mean (mmHg): 133 (QS system process) : 83 (QS system process) : 103 (QS system process) Pulse: 95 (QS system process) Pulse: 108 (QS system process) Pulse: 115 (QS system process) SpO2 (%): 99 (QS system process) SpO2 (%): 90 (QS system process) Uterine Activity Monitor Mode: Palpation (Charu Barraza RN) Monitor Interventions for UA: Island Walk Adjusted (Charu Barraza RN) Frequency (min): 2-4 (Charu Barraza RN) Quality: Moderate (Charu Barraza RN) Duration (sec): 50-90 (Charu Barraza RN) Resting Tone (Palpate): Relaxed (Charu Barraza RN) Contraction Comments: Ctx monitored with palpation by RN during epidural procedure (Charu Barraza RN) Monitor Interventions for FHR: Ultrasound Adjusted (Charu Barraza RN) Comments: Unable to monitor FHR during epidural procedure (Charu Barraza RN) Patient Position/Activity: Supine (Charu Barraza RN) Epidural Procedure Other: Pump Started (Charu Barraza RN) LaborFlag: Antepartum (QS system process) Datetime: 03/03/2016 00:58 NBP Sys/Kitty/Mean (mmHg): 129 (QS system process) : 63 (QS system process) : 91 (QS system process) Pulse: 101 (QS system process) LaborFlag: Antepartum (QS system process) Datetime: 03/03/2016 00:57 NBP Sys/Kitty/Mean (mmHg): 146 (QS system process) : 89 (QS system process) : 110 (QS system process) Pulse: 91 (QS system process) LaborFlag: Antepartum (QS system process) Datetime: 03/03/2016 00:56 NBP Sys/Kitty/Mean (mmHg): 156 (QS system process) : 100 (QS system process) : 113 (QS system process) Pulse: 110 (QS system process) Epidural Procedure: Loading Dose (Belkis Hdez, RN) LaborFlag: Antepartum (QS system process) Datetime: 03/03/2016 00:54 Pulse: 95 (QS system process) SpO2 (%): 97 (QS system process) LaborFlag: Antepartum (QS system process) Datetime: 03/03/2016 00:53 Epidural Procedure: Test Dose (Belkis Kossmann, RN) Datetime: 03/03/2016 00:52 Epidural Procedure: Cath Placed (Belkis Kossmann, RN) Datetime: 03/03/2016 00:48 Pulse: 95 (QS system process) SpO2 (%): 98 (QS system process) LaborFlag: Antepartum (QS system process) Datetime: 03/03/2016 00:46 Procedure TIME OUT Procedure Type: epidural (Belkis Ketty, RN) Procedure Verify: Correct Patient Identity; Correct Side and Site are Marked; Accurate Procedure Consent Form; Agreement on Procedure to be Done; Correct Patient Position (Belkis Hdez, RN) Anesthesia Anesthesia Plans: Epidural (Belkis Hdez, RN) Epidural Positioning: Sitting (Belkis Hdez, JOE) Anesthesia Comments: Dr. Tang at bedside for epidural placement (Belkis Lizamaana, RN) Datetime: 03/03/2016:45 Uterine Activity Monitor Mode: External (Charu Christi, RN) Frequency (min): 2-3.5 (Charu Christi, RN) Quality: Moderate (Charu Christi, RN) Duration (sec): 50-80 (Charu Christi, RN) Resting Tone (Palpate): Relaxed (Charu Christi, RN) Assessment A Monitor Mode: External US (Charu Christi, RN) FHR Baseline Rate : 125 (Charu Christi, RN) Variability: Moderate 6-25 bpm (Charu Christi, RN) Accelerations: None (Charu Christi, RN) Decelerations: Early; Variable (Charu Christi, RN) Comments: early _ variable decelerations auscultated by RN while at bedside (Charu Christi, RN) Datetime: 03/03/2016 00:40 Pulse: 97 (QS system process) SpO2 (%): 98 (QS system process) LaborFlag: Antepartum (QS system process) Datetime: 03/03/2016 00:36 Patient Care IV/Blood Work: New IV Bag Hung (Belkis Kossmann, RN) Datetime: 03/03/2016 00:35 Pulse: 91 (QS system process) SpO2 (%): 99 (QS system process) LaborFlag: Antepartum (QS system process) Datetime: 03/03/2016 00:34 Actions for Decelerations: Oxygen Applied (Belkis Kossmann, RN) Datetime: 03/03/2016 00:33 Pain Coping: Crying; Writhing; Other (Annotations: Bearing down with ctx ) (Charu Christi, RN) Vaginal Exam Dilatation (cm): 7.0 (Charu Christi, RN) Effacement (%): 80 (Charu Christi, RN) Station: -1 (Charu Christi, RN) Exam by: K Christi RN (Charu Christi, RN) Datetime: 03/03/2016 00:31 Communication Comments: Dr. Patton informed of vag exam (Annotations: (disregard previous strip charting done in error)) (Charu Christi, RN) Communication Comments: Dr. Patton on floor (Meera Field, RN) Datetime: 03/03/2016 00:30 Uterine Activity Monitor Mode: External; Palpation (Charu Christi, RN) Frequency (min): 2-3 (Charu Christi, RN) Quality: Moderate (Charu Christi, RN) Duration (sec): 60-90 (Charu Christi, RN) Resting Tone (Palpate): Relaxed (Charu Christi, RN) Assessment A Monitor Mode: External US (Charu Christi, RN) FHR Baseline Rate : 135 (Charu Christi, RN) Variability: Moderate 6-25 bpm (Charu Christi, RN) Accelerations: 15X15 (Charu Christi, RN) Decelerations: Early; Variable (Charu Christi, RN) Membrane Status: Disregard previous strip charting done in error (Charu Christi, RN) Datetime: 03/03/2016 00:29 Procedure Verify: Correct Patient Identity; Correct Side and Site are Marked; Accurate Procedure Consent Form; Agreement on Procedure to be Done; Relevant Images and Results are Properly Labeled and Displayed; Addressed Need to Administer Antibiotics or Fluids for Irrigation; Safety Precautions Based on Patient History or Medication Use (Charu Christi, RN) Anesthesia Anesthesia Plans: Epidural (Charu Schultel, RN) Anesthesia Comments: Dr. Tang aware of epidural request and is in route (Belkis Hdez, RN) Datetime: 03/03/2016 00:28 Pain Coping: Crying; Writhing; Other (Annotations: bearing down with ctx ) (Charu Cadesel, RN) Vaginal Exam Dilatation (cm): 7.0 (Charu Christi, RN) Effacement (%): 80 (Charu Christi, RN) Station: -2 (Charu Christi, RN) Exam by: K Christi RN (Charu Christi, RN) Datetime: 03/03/2016 00:24 I/O Interventions: Wesley Discontinued (Belkis Claudiasmann, RN) Patient Care Comments: wesley cath discontinued d/t pt involuntarily pushing and RN inability to perform SVE d/t to pt movement (Belkis Claudiasmann, RN) Datetime: 03/03/2016 00:22 Communication Comments: Nursery called for light mec, possible impending delivery d/t inability to perform accurate vag exam and apparent involuntary pushing (Charu Barraza RN) Datetime: 03/03/2016 00:21 Pain Coping: Crying; Writhing (Annotations: Bearing down with ctx, will not tolerate SVE, reports urge to defecate) (Charu Barraza RN) Membrane Status: Ruptured (Chrau Barraza RN) Membranes Ruptured Date/Time: 03/03/2016 00:21 (Charu Barraza RN) Membranes Rupture Method: Spontaneous (Charu Barraza RN) Amniotic Fluid Color: Light Meconium (Charu Barraza RN) Amniotic Fluid Amount: Moderate (Charu Barraza RN) Communication Communication: Call/Page Placed to Provider (Charu Barraza RN) Communication Comments: Informed Dr. Patton of vag exam; he is enroute. (Meera Desai RN) Datetime: 03/03/2016 00:15 Uterine Activity Monitor Mode: External; Palpation (Charu Christi, RN) Frequency (min): 2-4 (Charu Christi, RN) Quality: Moderate (Charu Christi, RN) Duration (sec): 60-90 (Charu Christi, RN) Resting Tone (Palpate): Relaxed (Charu Christi, RN) Assessment A Monitor Mode: External US (Charu Christi, RN) FHR Baseline Rate : 125 (Charu Christi, RN) Variability: Moderate 6-25 bpm (Hcaru Christi, RN) Accelerations: 15X15 (Charu Christi, RN) Decelerations: None (Charu Christi, RN) Datetime: 03/03/2016 00:05 Communication Communication: RN Reviewed Strip; Call/Page Placed to Provider (Meera Desai, RN) Communication Comments: Informed Dr. Patton of vag exam; he is on his way in to L_D (Meera Field, RN) Datetime: 03/03/2016 00:03 Vaginal Exam Dilatation (cm): 6.0 (Charu Barraza RN) Effacement (%): 90 (Charu Barraza RN) Station: -1 (Charu Barraza RN) Exam by: joe hdez (Charu Barraza RN) Membrane Status: Bulging (Charu Barraza RN) Vaginal Exam Comments: -1 to -2 bbow (Charu Barraza RN) Datetime: 03/03/2016 00:02 I/O Interventions: Wesley Cath Inserted (Charu Barraza RN) Patient Care Comments: wesley inserted therapeutically for suspected bladder spasms with aseptic technique by JOE Hdez (Charu Barraza RN) Datetime: 03/03/2016 00:00 Uterine Activity Monitor Mode: External; Palpation (Charu Christi, RN) Frequency (min): 2-4 (Charu Christi, RN) Quality: Moderate (Charu Christi, RN) Duration (sec): 50-70 (Charu Christi, RN) Resting Tone (Palpate): Relaxed (Charu Christi, RN) Assessment A Monitor Mode: External US (Charu Christi, RN) FHR Baseline Rate : 125 (Charu Christi, RN) Variability: Moderate 6-25 bpm (Charu Christi, RN) Accelerations: 15X15 (Charu Christi, RN) Decelerations: None (Charu Christi, RN) Comments: Broken strip, RN remained at bedside attempting to locate FHR, monitoring impaired d/t maternal movement (Charu Christi, RN) I/O Interventions: Wesley Cath Inserted (Belkis Hdez, RN) Datetime: 03/02/2016 23:54 I/O Interventions: Up to BR (Charu Christi, RN) Patient Care Comments: Pt states she needs to pee with all ctx (Charu Christi, RN) Datetime: 03/02/2016 23:52 Procedures: Consents Signed (Charu Christi, RN) Datetime: 03/02/2016 23:51 Comments: maternal movement (Charu Christi, RN) Datetime: 03/02/2016 23:50 Monitor Interventions for FHR: Ultrasound Adjusted (Charu Christi, RN) Comments: RN at bedside, FHR 125 bpm (Charu Christi, RN) Datetime: 03/02/2016 23:49 Pain Coping: Requesting Pain Medication or Epidural; Crying; Writhing (Charu Christi, RN) Patient Care IV/Blood Work: IV Started; IV Bolus Started; Labs Drawn with IV Start; Labs Drawn (Chaur Barraza RN) Patient Care Comments: IV bolusing for epidural (Charu Barraza RN) Procedure Verify: Correct Patient Identity; Correct Side and Site are Marked; Accurate Procedure Consent Form; Agreement on Procedure to be Done; Relevant Images and Results are Properly Labeled and Displayed; Addressed Need to Administer Antibiotics or Fluids for Irrigation; Safety Precautions Based on Patient History or Medication Use (Charu Barraza RN) Anesthesia Anesthesia Plans: Epidural (Charu Christi, RN) Datetime: 03/02/2016:30 Communication Communication: Provider Orders Received; Report Given to @ Dr Patton (Charu Barraza RN) Communication Comments: Call placed to Dr Patton, orders received for pt admission, epidural PRN (Charu Barraza RN) Datetime: 03/02/2016 23:25 Vaginal Exam Dilatation (cm): 4.0 (Charu Barraza RN) Effacement (%): 60 (Charu Barraza RN) Station: -2 (Charu Barraza RN) Exam by: Guero Barraza RN (Charu Barraza RN) Vaginal Bleeding: Normal Show (Charu Barraza RN) Cervix, Consistency: Moderate (Charu Barraza RN) Cervix, Position: Midposition (Charu Barraza RN) Datetime: 03/02/2016 22:19 Patient Care Comments: monitors removed, pt instructed to ambulate 2nd floor for 1 hour, will repeat SVE after 1 hour. Pt and family agree to POC (Charu Christi, RN) Datetime: 03/02/2016 22:15 Uterine Activity Monitor Mode: External (Charu Christi, RN) Frequency (min): 3-4 (Charu Christi, RN) Quality: Mild (Charu Christi, RN) Duration (sec): 50-60 (Charu Christi, RN) Resting Tone (Palpate): Relaxed (Charu Christi, RN) Assessment A Monitor Mode: External US (Charu Christi, RN) FHR Baseline Rate : 125 (Charu Christi, RN) Variability: Moderate 6-25 bpm (Charu Christi, RN) Accelerations: 15X15 (Charu Christi, RN) Decelerations: None (Charu Christi, RN) Datetime: 03/02/2016 22:06 I/O Interventions: Up to BR (Charu Christi, RN) Datetime: 03/02/2016 22:00 Uterine Activity Monitor Mode: External; Palpation (Belkis Kossmann, RN) Frequency (min): none (Belkis Kossmann, RN) Frequency (min): q 3-5 per pt (Charu Christi, RN) Quality: Mild (Charu Christi, RN) Resting Tone (Palpate): Relaxed (Belkis Kossmann, RN) Assessment A Monitor Mode: External US (Belkis Kossmann, RN) FHR Baseline Rate : 130 (Belkis Kossmann, RN) Variability: Moderate 6-25 bpm (Belkis Kossmann, RN) Decelerations: None (Belkis Kossmann, RN) Pain Pain Scale: 2 (Charu Christi, RN) Pain Presence: Intermittent (Charu Christi, RN) Pain Type: Cramping (Charu Christi, RN) Pain Location: Abdomen (Charu Christi, RN) Pain Goal: 1 (Charu Christi, RN) Pain Relief Measures: Comfort Measures (Charu Christi, RN) Pain Coping: Breathing Through Contractions; Writhing (Charu Christi, RN) Membrane Status: Intact (Charu Christi, RN) Vaginal Bleeding: Scant (Charu Christi, RN) Rocha's Score Dilatation (cm): 3-4 cms (Charu Christi, RN) Effacement: 40-50_ effaced (Charu Christi, RN) Station: minus 3 (Charu Christi, RN) Consistency: Medium (Charu Christi, RN) Position: Posterior (Charu Christi, RN) Total Rocha's Score: 4 (QS system process) : 0-4 = Unfavorable cervix (QS system process) Maternal Assessment Level of Consciousness: Fully Conscious (Charu Christi, RN) DTR's/Clonus: DTRs 2+; No Clonus (Charu Christi, RN) Headache: Denies (Charu Christi, RN) Breath Sounds, Left: Clear and Equal (Charu Christi, RN) Breath Sounds, Right: Clear and Equal (Charu Christi, RN) Nausea/Vomiting: Hx of Nausea/Vomiting (Charu Christi, RN) RUQ Epigastric Pain: Denies (Charu Christi, RN) Patient Position/Activity: Right Lateral (Charu Christi, RN) Comfort Measures: Family Support (Charu Christi, RN) Teaching Instructional Method: Demo; Patient Instructed; Family/Support Person Instructed; Verbalized Understanding (Charu Barraza, RN) Plan of Care: Plan of Care Discussed; Labor (Charu Barraza, RN) LaborFlag: Antepartum (QS system process) Datetime: 03/02/2016 21:57 Uterine Activity Monitor Mode: Palpation (Charu Christi, RN) Monitor Interventions for UA: Island Walk Adjusted (Charu Christi, RN) Quality: Mild (Charu Christi, RN) Monitor Interventions for FHR: Ultrasound Adjusted (Charu Christi, RN) Datetime: 03/02/2016 21:53 Uterine Activity Monitor Mode: Palpation (Charu Barraza RN) Quality: Mild (Charu Christi, RN) Datetime: 03/02/2016 21:51 Vital Signs Stage of : Antepartum (Charu Barraza RN) NBP Sys/Kitty/Mean (mmHg): 104 (QS system process) : 53 (QS system process) : 73 (QS system process) Pulse: 90 (QS system process) Respirations: 17 (Charu Barraza RN) Temperature (F): 98.0 (Belkis Hdez RN) Temperature (C): 36.7 (QS system process) Temperature Route: Oral (Belkis Hdez RN) LaborFlag: Antepartum (QS system process) Datetime: 03/02/2016 21:50 Comments: monitors applied (Charu Christi, RN) Datetime: 03/02/2016 21:47 I/O Interventions: Up to BR (Charu Christi, RN) Datetime: 03/02/2016 21:43 Vaginal Exam Dilatation (cm): 3.0 (Charu Barraza RN) Effacement (%): 50 (Charu Barraza RN) Station: -3 (Charu Barraza RN) Exam by: Guero Barraza RN (Charu Barraza RN) Vaginal Bleeding: Scant (Charu Barraza RN) Cervix, Consistency: Moderate (Charu Barraza RN) Cervix, Position: Posterior (Charu Barraza RN)
[2016-03-03] MEDS: IBUPROFEN 800 MG TABLET PO SCH ×3 (09:04→21:24)
[2016-03-03] MEDS: PRENATAL VITAMIN W-O CA NO5/FE FUMARATE/FA CAPSULE PO SCH (10:22)
[2016-03-03] MEDS: FERROUS SULFATE 325 MG TABLET PO SCH ×2 (10:22→18:19)
[2016-03-03] MEDS: FAMOTIDINE 20 MG TABLET PO SCH ×2 (10:23→21:24)
[2016-03-03] MEDS: DOCUSATE SODIUM 100 MG CAPSULE PO SCH ×2 (10:23→18:19)
[2016-03-03] MEDS: SENNOSIDES/DOCUSATE 8.6-50 MG 1 EACH TABLET PO SCH (10:23)
--- NOTE | 2016-03-03 14:01 | L&D Care Plan ---
LD CARE PLANS Datetime Report Generated by CPN: 03/03/2016 14:01 Datetime: 03/02/2016 23:33 Pain State: Risk For (Meera Desai RN) Related To: Labor and Delivery Process; Surgical Procedure; Complication(s) of ; Post (Meera Desai RN) Goal(s): Patients Pain will be Assessed and Managed; Patient will Verbalize Adequate Relief of Pain or the Ability to [place] with Current Pain (Meera Desai RN) Interventions: Assess Pain Severity on Scale of 0 (None) to 5 (Severe); Assess Type, Location and Intensity of Pain Each Time Client Reports Discomfort and Notify Provider if Unusal Pain Develops; Encourage Proper Breathing and Relaxation Techniques; Offer Alternatives Such as Repositioning, Calm Environment, Massages, Diversional Activities, Ice Pack, Splinting, and Ambulation; Administer Analgesics as Ordered; Assist with Epidural Placement as Appropriate; Evaluate Therapeutic Effectiveness of Medication and Treatments (Meera Desai RN) Outcome: Patient will Report Absence or Relief of Pain Consistent with Established Pain Goal (Meera Desai RN) Status: Ongoing (Meera Desai RN) Outcome: Patient will have a Decrease in Signs and Symptoms of Discomfort (Meera Desai RN) Status: Ongoing (Meera Desai RN) Outcome: Pain will be Controlled During Procedures (Merea Desai RN) Status: Ongoing (Meera Desai RN) Anxiety State: Risk For (Meera Desai RN) Related To: Labor and Delivery Process; Surgical Procedure (Meera Desai RN) Goal(s): Patient will have Decreased Anxiety and be able to Function at Acceptable Levels (Meera Desai RN) Interventions: Assess Verbal and Nonverbal Behavioral Indicators of Anxiety; Assist Patient to Identify and Verbalize Symptoms of Anxiety; Identify and Demonstrate Techniques to Control Anxiety; Assist Patient with Coping Mechanisms to Manage Anxiety; Provide Theraputic Touch for the Patient; Explain to Patient, Using a Calm Reassuring Approach and Nonmedical Terms, All Activities, Procedures, and Concerns; Instruct Patient and Family about Post Discharge Care, Limitations, Symptoms to Report and Resources Available (Meera Desai RN) Outcome: Patient will Identify, Verbalize and Demonstrate Techniques to Control Anxiety (Meera Desai RN) Status: Ongoing (Meera Desai RN) Outcome: Patient's Posture, Facial Expressions, Gestures and Activity Level will Reflect Decreased Anxiety (Meera Desai RN) Status: Ongoing (Meera Desai RN) Outcome: Patient will Verbalize a Sense of Control and/or Acceptance of the Situation (Meera Desai RN) Status: Ongoing (Meera Desai RN) Outcome: Patient will Identify and Utilize Support Person (Meera Desai RN) Status: Ongoing (Meera Desai RN) Knowledge Deficit State: Risk For (Meera Desai RN) Related To: Labor and Delivery Process; Surgical Procedures; Treatment and Procedures (Meera Desai RN) Goal(s): Patient will Accurately Verbalize Understanding of Plan of Care and Treatment; Patient and Family will Accurately Verbalize Understanding of the Disease Process (Meera Desai RN) Interventions: Assess Motivation and Willingness of Patient/Family to Learn; Assess Preferred Learning Mode: One to One Instruction, Reading, Videos, Group Discussion or Demonstration; Assess Barriers to Learning: Pain, Emotional State, Language Barrier, Cognitive Impairment, Visual or Hearing Deficits; Assess Patient and Family Knowledge of Disease Process, Medications and Treatment; Discuss Therapy and/or Treatment Options, Describe Rationale Behind Management, Therapy and Treatment Recommendations; Instruct Patient and Family on Signs and Symptoms to Report; Instruct Patient and Family on Medication Effects and Side Effects; Provide Appropriate and Timely Education Using Multiple Techniques; Provide Patient and Family with Support Group Information and Resources; Give Clear and Thorough Explanations and Demonstrations (Meera Desai RN) Outcome: Patient and Family will Verbalize Understanding of Condition, Treatment and Signs and Symptoms to Report (Meera Desai RN) Status: Ongoing (Meera Desai RN) Outcome: Patient will Identify Perceived Learning Needs and Express Motivation to Learn (Meera Dseai RN) Status: Ongoing (Meera Desai RN) Outcome: Patient will Verbalize Understanding of Desired Content, and/or Performs Desired Skill Prior to Discharge (Meera Desai RN) Status: Ongoing (Meera Desai RN) Infection State: Risk For (Meera Desai RN) Related To: Surgical Procedures (Meera Desai RN) Goal(s): The Patient will be Free of Infection, Vital Signs Stable and Lab Work within Normal Parameters (Meera Desai RN) Interventions: Instruct and Reinforce Proper Handwashing, Hygiene, and Care Techniques to Patient and Family; Monitor Vital Signs; Monitor Patient for the Following Signs of Infection: Fever, Abdominal Tenderness, Unusual Discharge; Monitor Aminiotic Fluid, Urine and Lochia for Color and Odor; Observe Wounds, Incisions and Invasive Line Sites for Redness, Drainage and Edema; Assess IV Sites per Hospital Policy; Monitor Lab and Test Results and Notify Provider of Abnormal Findings; Assess Nutritional Status and Promote Good Nutrition (Meera Desai RN) Outcome: Patient will Remain Free of Infection (Meera Desai RN) Status: Ongoing (Meera Desai RN) Outcome: Infection will be Recognized Early to Allow for Prompt Treatment (Meera Desai RN) Status: Ongoing (Meera Desai RN) Outcome: Patient will have Vital Signs Within Expected Range (Meera Desai RN) Status: Ongoing (Meera Desai RN) Fluid Volume State: Risk For (Meera Desai RN) Related To: Surgical Procedures; Hemorrhage (Meera Desai RN) Goal(s): Patient will Achieve and Maintain a Balanced Fluid Volume Status; Hemodynamically Stable (Meera Desai RN) Interventions: Monitor Vital Signs; Auscultate Breath Sounds; Monitor Patient for Skin Turgor, Mucous Membranes, Dry Skin, Weakness, Headaches and Confusion; Provide Oral Fluids as Ordered; Initiate and Maintain Intravenous Fluids as Ordered; Monitor Intake and Output as Indicated Per Patient Status; Accurately Measure Blood Loss; Monitor Lab and Test Results as Obtained and Notify Provider of Abnormal Findings; Monitor Patient's Weight (Meera Desai, JOE) Outcome: Patient will have Clear Lung Sounds (Meera Desai RN) Status: Ongoing (Meera Desai RN) Outcome: Patient will have Vital Signs within Expected Range (Meera Desai RN) Status: Ongoing (Meera Desai RN) Outcome: Urine Output will be within Expected Range (Meera Desai, RN) Status: Ongoing (Meera Desai RN) Outcome: Patient will have Minimal Generalized or Upper Extremity Edema (Meera Desai RN) Status: Ongoing (Meera Desai, RN) Injury State: Risk For (Meera Desai RN) Related To: Labor and Delivery Process (Meera Desai RN) Goal(s): Patient will Remain Free from Injury (Meera Desai RN) Interventions: Monitoring as per Hospital Protocol; Assess Neurological Status; Perform Risk Assessment of Patients with Induction and ; Perform Fall Risk Assessment and Prevention per Hospital Protocol; Perform DVT Risk Assessment and Prophylaxis per Hospital Protocol; Ensure that Oxygen, Suction, and Resuscitation Medications and Equipment are Readily Available; Confirm Patient ID Prior to Procedure(s) and Medication Administration per Hospital Policy (Meera Desai RN) Outcome: Successful Fall Risk Prevention (Meera Desai RN) Status: Ongoing (Meera Desai RN) Outcome: Patient will Deliver Infant without Adverse [place] (Meera Desai RN) Status: Ongoing (Meera Desai RN) Outcome: Patient's Neurological Status will Remain Stable (Meera Desai RN) Status: Ongoing (Meera Desai RN) Impaired Skin Integrity State: Risk For (Meera Desai RN) Related To: Vaginal Delivery; Surgical Procedures (Meera Desai RN) Goal(s): Patient will Maintain Optimal Skin Integrity, Free of Breakdown, Injury or Infection (Meera Desai RN) Interventions: Complete Screening for Pressure Ulcer Risk and Initiate Protocol per Hospital Policy; Monitor Site of Skin Impairment for Color Changes, Redness, Swelling, Warmth, Pain or Other Signs of Infection; Encourage and Assist with Position Changes; Monitor Patient's Mobility Status; Provide Adequate Nutrition and Fluids; Teach Patient Appropriate Hygienic Care; Teach Patient/Family Skin Care Management (Meera Desai RN) Outcome: Patient will not have Evidence of Injury Such as Skin Breakdown, Scrapes, Cuts, or Bruising (Meera Desai RN) Status: Ongoing (Meera Desai RN) Outcome: Patient will Report Any Altered Sensation or Pain at Site of Skin Impairment (Meera Desai ) Status: Ongoing (Meera Desai RN) Outcome: Patients Incisions and Wounds will be without Signs or Symptoms of Infection (Meera Desai RN) Status: Ongoing (Meera Desai RN) Outcome: Patient will Demonstrate Understanding of Plan to Heal Skin and Prevent Reinjury and Verbalize Risk Factors (Meera Desai RN) Status: Ongoing (Meera Desai ) Parenting Impaired State: Not Applicable ([facility]) Nutrition State: Not Applicable (Meera Desai, ) Grieving State: Not Applicable (Meera Desai, RN) Additional Care Plan State: Not Applicable (Meera Desai, RN)
--- NOTE | 2016-03-03 19:01 | L&D Flow Sheet ---
LD Flowsheet Datetime Report Generated by CPN: 03/03/2016 19:00 Datetime: 03/03/2016 07:23 Stage of : Recovery (Charu Barraza RN) NBP Sys/Kitty/Mean (mmHg): 127 (QS system process) : 64 (QS system process) : 90 (QS system process) Pulse: 78 (QS system process) Respirations: 18 (Charu Barraza RN) Temperature (F): 98.3 (Charu Barraza RN) Temperature (C): 36.8 (QS system process) Temperature Route: Oral (Charu Barraza RN)
[2016-03-04] MEDS: ACETAMINOPHEN WITH CODEINE #3 TABLET PO PRN (02:46)
[2016-03-04] MEDS: IBUPROFEN 800 MG TABLET PO SCH ×3 (06:07→22:17)
--- NOTE | 2016-03-04 06:24 | L&D Current Admission ---
Current Admit Datetime Report Generated by CPN: 03/04/2016 06:00 ADMISSION INFORMATION Current Admit Date/Time: 03/03/2016 00:08 (03/02/2016 22:00:Charu Barraza RN) Reason for Admission: Onset of Labor (03/02/2016 22:00:Charu Barraza RN) Chief Complaint: Contractions (03/02/2016 22:00:Charu Barraza RN) Medications During : Ferrous Sulfate (Iron) (03/02/2016 22:00:Charu Barraza RN) Meds During -Oth: diclegis, iron, vit b/vit c (03/02/2016 22:00:Charu Barraza RN) EGA per Dates: 40.4 (03/02/2016 22:00:QS system process) Method of Arrival: Wheelchair (03/02/2016 22:00:Charu Barraza RN) Admitted From: Home (03/02/2016 22:00:Charu Barraza RN) Reason for Induction: Not Applicable (03/02/2016 22:00:Charu Barraza RN) Records Available: Yes (03/02/2016 22:00:Charu Barraza RN) General Admission Information: Reviewed; Updated; Confirmed (03/02/2016 22:00:Charu Barraza RN) General Admission Reviewed By: Guero Barraza RN (03/02/2016 22:00:Charu Barraza RN) BELONGINGS/ADVANCED DIRECTIVES Other Belongings: see [facility] belongings form (03/02/2016 22:00:Charu Barraza RN) Advance Direct for Healthcare: No, and Wants No Information (03/02/2016 22:00:Charu Barraza RN) Durable Power of Operational Intelligence Analyst: No (03/02/2016 22:00:Charu Barraza RN) Living Will: No (03/02/2016 22:00:Charu Barraza RN) Organ Donor: Yes (03/02/2016 22:00:Charu Barraza RN) Pt Rights Information Given: Yes (03/02/2016 22:00:Charu Barraza RN) Pt Understands Pt Rights: Yes (03/02/2016 22:00:Charu Barraza RN) LEARNING ASSESSMENT Knowledge Level: Understands L_D Process (03/02/2016 22:00:Charu Barraza RN) Barriers to Learning: Emotional State; Pain (03/02/2016 22:00:Charu Barraza RN) Learning Readiness: Unable to Participate (03/02/2016 22:00:Charu Barraza RN) Learning Needs: Labor and Delivery Process; Pain Management; Symptoms to Report; Treatment Plan; Medication; Diagnosis; Nutrition; Equipment; Infant Care (03/02/2016 22:00:Charu Barraza RN) DOMESTIC VIOLANCE SCREENING Reason Unable to Complete Screen: No Opportunity to Talk Privately (03/02/2016 22:00:Charu Barraza RN) NUTRITIONAL/FUNCTIONAL SCREENING Problem with Appetite >5 Days: No (03/02/2016 22:00:Charu Barraza RN) Chew/Swallow Difficulties: No (03/02/2016 22:00:Charu Barraza RN) Inappropriate Wt Gain/Loss: No (03/02/2016 22:00:Charu Barraza RN) Presence Skin Breakdown/Ulcer: No (03/02/2016 22:00:Charu Barraza RN) Special Diet: No (03/02/2016 22:00:Charu Barraza RN) Pt Requests Packaging Sales Visit: No (03/02/2016 22:00:Charu Barraza RN) Hx of Any of the Following?: N/A (03/02/2016 22:00:Charu Barraza RN) New Diagnosis of: N/A (03/02/2016 22:00:Charu Barraza RN) Requires Assist w/Ambulation: No (03/02/2016 22:00:Charu Barraza RN) Uses Assist Device to Ambulate: No (03/02/2016 22:00:Charu Barraza RN) Pt Requires Help w/ADL's: No (03/02/2016 22:00:Charu Barraza RN)
--- NOTE | 2016-03-04 06:24 | L&D General Admission ---
General Admit Datetime Report Generated by CPN: 03/04/2016 06:00 INFORMATION Patient Age: 30 (02/15/2016 10:59:QS system process) EDC: 02/28/2016 00:00 (02/15/2016 11:02:Maryanne Lindsey RN) : 3 (02/15/2016 11:02:Maryanne Lindsey RN) Para: 1 (02/25/2016 21:30:Maryanne Lindsey RN) Baby, Number in Womb: 1 (02/25/2016 21:30:Maryanne Lindsey RN) CARE Primary Fatback Trimmer: [facility] (02/15/2016 11:02:Maryanne Lindsey RN) Month of 1st Visit: September 2015 (02/15/2016 11:02:Maryanne Lindsey RN) Adequate Care: No (02/15/2016 11:02:Maryanne Lindsey RN) Height (in): 64 (03/03/2016 11:45:QS system process) ALLERGIES Medication Allergy: No (02/15/2016 11:02:Maryanne Lindsey RN) Medication Allergies: No Known Allergies (03/02/2016) (03/02/2016 21:37:QS system process) Latex Allergy: No Latex Allergies (02/15/2016 11:02:Maryanne Lindsey RN) COMMUNICATION Primary Language: Lebanese (02/15/2016 11:02:Maryanne Lindsey RN) Medical Tx Preferred Language: Lebanese (02/15/2016 11:02:Charu Barraza RN) Lebanese Communication Ability: Speaks Lebanese; Reads Lebanese (02/15/2016 11:02:Belkis Hdez RN) Communication Barrier(s): None (02/15/2016 11:02:Belkis Hdez RN) DEMOGRAPHICS Address: [address] [place] [id number] (02/15/2016 10:59:QS system process) Zipcode: [address] (02/15/2016 10:59:QS system process) Home (02/15/2016 10:59:QS system process) SSN: [id number] (02/15/2016 10:59:QS system process) Next of Kin Name: ADAM CALLEJAS (02/15/2016 10:59:QS system process) Next of Kin (02/15/2016 10:59:QS system process) Next of Kin Relationship: [place] (02/15/2016 10:59:QS system process) Date of : 1985 (02/15/2016 10:59:QS system process) Marital Status: Legally (02/15/2016 10:59:QS system process) Sex: Female (02/15/2016 10:59:QS system process) Race: (02/15/2016 10:59:QS system process) Ethnicity: Non- or (02/15/2016 10:59:QS system process) Samaritan: None (02/15/2016 10:59:QS system process) FOB Involved: No (02/15/2016 11:02:Charu Barraza RN) DRUG AND ALCOHOL USE Alcohol: No (02/15/2016 11:02:Charu Barraza RN) Cigarettes: Current Everyday Smoker. 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[employer] [facility] (02/15/2016 11:02:Belkis Hdez RN) Feeding Preference: Breast (02/15/2016 11:02:Charu Barraza RN) Benefit of Breast Feed Discussed: Yes (02/15/2016 11:02:Charu Barraza RN) Circumcision: Yes (02/15/2016 11:02:Charu Barraza RN) Tubal Authorization Signed: N/A (02/15/2016 11:02:Charu Barraza RN) Consent: N/A (02/15/2016 11:02:Charu Barraza RN) Consent Signed: N/A (02/15/2016 11:02:Charu Barraza RN) Pain Management Plans: Medications; Epidural (02/15/2016 11:02:Charu Barraza RN) Plans for Labor and Delivery: None (02/15/2016 11:02:Belkis Hdez RN) Support Person: Tamica Steele (02/15/2016 11:02:Charu Barraza RN) Support Person Relationship: Mother (02/15/2016 11:02:Charu Barraza RN) Cultural/Spritual Practice: No (02/15/2016 11:02:Charu Barraza RN) Spir/Cult Dietary Needs: No (02/15/2016 11:02:Charu Barraza RN) LIVING SITUATION/DISCHARGE PLAN Living Arrangements: House (02/15/2016 11:02:Charu Barraza RN) Adequate Access to:: Electric; Heat; Refrigeration; Plumbing/Running water; Phone; Transportation (02/15/2016 11:02:Charu Barraza RN) WIC Program: Yes (02/15/2016 11:02:Charu Barraza RN) Discharge Sand System Operator Person: Tamica Steele (02/15/2016 11:02:Charu Barraza RN) Person to Help after Discharge: Tamica Steele (02/15/2016 11:02:Charu Barraza RN) Currently Using Commun Resources: Yes (02/15/2016 11:02:Charu Barraza RN) Specify Current Resource Used: medicaid (02/15/2016 11:02:Charu Barraza RN) Car Seat for Discharge: Yes (02/15/2016 11:02:Charu Barraza RN) Adoption Requested: No (02/15/2016 11:02:Charu Barraza RN) Pt Contact w/infant Post : N/A (02/15/2016 11:02:Charu Barraza RN) LABS Blood Type: A Positive (02/15/2016 11:02:Maryanne Lindsey RN) Antibody Screen: Negative (02/15/2016 11:02:Karime Henson RN) Rho(G) this : Not Applicable (02/15/2016 11:02:Karime Henson RN) Hemoglobin: 11.5 L (03/02/2016 23:50:QS system process) Hematocrit: 35.5 L (03/02/2016 23:50:QS system process) MCV: 91 (03/02/2016 23:50:QS system process) Group Beta Strep: Negative (02/15/2016 11:02:Karime Henson RN) Gonorrhea: Negative (02/15/2016 11:02:Maryanne Lindsey RN) Chlamydia: Negative (02/15/2016 11:02:Maryanne Lindsey RN) RPR/VDRL: Nonreactive (02/15/2016 11:02:Maryanne Lindsey RN) Hepatitis B: Negative (02/15/2016 11:02:Maryanne Lindsey RN) Rubella: Immune (02/15/2016 11:02:Maryanne Lindsey RN) OB/PREVIOUS HISTORY Previous Procedures: Ultrasound; NST (02/15/2016 11:02:Belkis Hdez RN) Current Procedures: Ultrasound; NST (02/15/2016 11:02:Belkis Hdez RN) History of Previous : No (02/15/2016 11:02:Charu Barraza RN) History of Gestational Diabetes: No (02/15/2016 11:02:Charu Barraza RN) History of PIH: No (02/15/2016 11:02:Charu Barraza RN) History of Incompetent Cervix: No (02/15/2016 11:02:Charu Barraza RN) History of Placenta Previa/Abrup: No (02/15/2016 11:02:Charu Barraza RN) History of Macrosomia: No (02/15/2016 11:02:Charu Barraza RN) History of IUGR: No (02/15/2016 11:02:Charu Barraza RN) History of Hemorrhage: No (02/15/2016 11:02:Charu Barraza RN) History of Loss/Stillborn: No (02/15/2016 11:02:Charu Barraza RN) History of : No (02/15/2016 11:02:Charu Barraza RN) History of D (Rh) Sensitization: No (02/15/2016 11:02:Charu Barraza RN) History Recurrent Loss/Stillborn: No (02/15/2016 11:02:Charu Barraza RN) History Depression/PP Depression: Yes (02/15/2016 11:02:Charu Barraza RN) History of Uterine Anomaly/KATHY: No (02/15/2016 11:02:Charu Barraza RN) History of Infertility: No (02/15/2016 11:02:Charu Barraza RN) History of ART Treatment: No (02/15/2016 11:02:Charu Barraza RN) History of KATHY: No (02/15/2016 11:02:Charu Barraza RN) Comments Obstetrical History: G1: 2008 G2: SAB 2009 G3: Current, late entry to care 20 wk 6 d (02/15/2016 11:02:Charu Barraza RN) MEDICAL HISTORY Med Hx Diabetes: No (02/15/2016 11:02:Charu Barraza RN) Med Hx Hypertension: No (02/15/2016 11:02:Charu Barraza RN) Med Hx Heart Disease: No (02/15/2016 11:02:Charu Barraza RN) Med Hx Autoimmune Disorder: No (02/15/2016 11:02:Charu Barraza RN) Med Hx Kidney Disease/UTI: No (02/15/2016 11:02:Charu Barraza RN) Med Hx Neurologic/Epilepsy: No (02/15/2016 11:02:Charu Barraza RN) Med Hx Psychiatric Disorders: No (02/15/2016 11:02:Charu Barraza RN) Med Hx Hepatitis/Liver Disease: No (02/15/2016 11:02:Charu Barraza RN) Med Hx Varicosities/Phlebitis: No (02/15/2016 11:02:Charu Barraza RN) Med Hx Thyroid Dysfunction: No (02/15/2016 11:02:Charu Barraza RN) Med Hx Trauma/Violence: No (02/15/2016 11:02:Charu Barraza RN) Med Hx Blood Transfusion: No (02/15/2016 11:02:Charu Barraza RN) Med Hx Pulmonary (Asthma,TB): No (02/15/2016 11:02:Charu Barraza RN) Med Hx Breast: No (02/15/2016 11:02:Charu Barraza RN) Med Hx DRONE OPERATOR Surgery: No (02/15/2016 11:02:Charu Barraza RN) Med Hx Hospitalization/Surgery: Yes (02/15/2016 11:02:Charu Barraza RN) Med Hx Anesthetic Complications: No (02/15/2016 11:02:Charu Barraza RN) Med Hx Abnormal Pap Smear: Yes (02/15/2016 11:02:Charu Barraza RN) Other Medical Diseases: No (02/15/2016 11:02:Charu Barraza RN) Med Hx Significant Family Hx: No (02/15/2016 11:02:Charu Barraza RN) Details of Med/Surg Hx: LGSIL pap; appy 2013; depression/anxiety, with meds in past (02/15/2016 11:02:Charu Barraza RN) INFECTIOUS HISTORY Inf Hx Gonorrhea: No (02/15/2016 11:02:Charu Barraza RN) Inf Hx Chlamydia: No (02/15/2016 11:02:Charu Barraza RN) Inf Hx Syphilis: No (02/15/2016 11:02:Charu Barraza RN) Inf Hx HIV/AIDS: No (02/15/2016 11:02:Charu Barraza RN) Inf Hx Human Papilloma Virus: No (02/15/2016 11:02:Charu Barraza RN) Inf Hx Pt/Partner Genital Herpes: No (02/15/2016 11:02:Charu Barraza RN) Inf Hx Tuberculosis/Exposure: No (02/15/2016 11:02:Charu Barraza RN) Inf Hx Hepatitis B,C: No (02/15/2016 11:02:Charu Barraza RN) Inf Hx Rash or Viral Illness: No (02/15/2016 11:02:Charu Barraza RN) GENETIC HISTORY Gen Hx Age >=35 at ROXIE: No (02/15/2016 11:02:Charu Barraza RN) Gen Hx Thalassemia: No (02/15/2016 11:02:Charu Barraza RN) Gen Hx Congenital Heart Defect: No (02/15/2016 11:02:Charu Barraza RN) Gen Hx Neural Tube Defect: No (02/15/2016 11:02:Charu Barraza RN) Gen Hx Down's Syndrome: No (02/15/2016 11:02:Charu Barraza RN) Gen Hx Gamaliel-Sachs: No (02/15/2016 11:02:Charu Barraza RN) Gen Hx Aura: No (02/15/2016 11:02:Charu Barraza RN) Gen Hx Familial Dysautonomia: No (02/15/2016 11:02:Charu Barraza RN) Gen Hx Sickle Cell Disease/Trait: No (02/15/2016 11:02:Charu Barraza RN) Gen Hx Hemophilia/Blood Disorder: No (02/15/2016 11:02:Charu Barraza RN) Gen Hx Muscular Dystrophy: No (02/15/2016 11:02:Charu Barraza RN) Gen Hx Cystic Fibrosis: No (02/15/2016 11:02:Charu Barraza RN) Gen Hx Huntingtons Chorea: No (02/15/2016 11:02:Charu Barraza RN) Gen Hx Mental Retardation/Autism: No (02/15/2016 11:02:Charu Barraza RN) Gen Hx Tested for Fragile X: No (02/15/2016 11:02:Charu Barraza RN) Gen Hx Other Inher/Chromosomal: No (02/15/2016 11:02:Charu Barraza RN) Gen Hx Maternal Metabolic DO: No (02/15/2016 11:02:Charu Barraza RN) Gen Hx Pt Father or FOB Defect: No (02/15/2016 11:02:Charu Barraza RN) Gen Hx Other Genetic History: No (02/15/2016 11:02:Charu Barraza RN) Gen Hx Drugs/Meds since LMP: Yes (02/15/2016 11:02:Charu Barraza RN) Gen Hx Medications: diclegis, iron, vit b/ vit c (02/15/2016 11:02:Charu Barraza RN)
[2016-03-04 07:40] LABS: HEMATOCRIT 30.7 % (36.0-47.0); HEMOGLOBIN 9.9 g/dL (12.0-15.5); MEAN CORPUSCULAR HEMOGLOBIN 29.6 pg (27.0-33.4); MEAN CORPUSCULAR HGB CONC 32.4 g/dL (32.0-36.0); MEAN CORPUSCULAR VOLUME 91 fl (80-97); RED BLOOD COUNT 3.36 10^6/uL (3.72-5.28); RED CELL DISTRIBUTION WIDTH 13.6 % (11.5-14.0); WHITE BLOOD COUNT 11.3 10^3/uL (4.0-10.5)
--- NOTE | 2016-03-04 09:13 | PDOC PROGRESS REPORT ---
Subjective-OB Subjective: Post Delivery Day: 30 year old. Denies any needs at this time Physical Exam (OB) Vital Signs: Temp Pulse Resp BP Pulse Ox 97.8 F 74 16 124/72 98 03/04/16 08:20 03/04/16 08:20 03/04/16 08:20 03/04/16 08:20 03/04/16 08:20 Intake & Output 03/03/16 03/04/16 03/05/16 06:59 06:59 06:59 Intake Total 400 Balance 400 Weight 103.25 kg - Lochia Lochia Amount: Small 10-25 ml Lochia Color: Rubra/Red - Abdomen Description: Soft, Round Hernia Present: No Bowel Sounds: Normoactive Flatus Presence: Present Stool: No Fundal Description: Firm, Midline Fundal Height: u/u - u/2 Objective-Diagnostic Laboratory: 03/04/16 07:06 03/04/16 07:06 WBC 11.3 H RBC 3.36 L Hgb 9.9 L Hct 30.7 L MCV 91 MCH 29.6 MCHC 32.4 RDW 13.6 Plt Count 244
[2016-03-04] MEDS: DOCUSATE SODIUM 100 MG CAPSULE PO SCH ×2 (10:50→17:14)
[2016-03-04] MEDS: PRENATAL VITAMIN W-O CA NO5/FE FUMARATE/FA CAPSULE PO SCH (10:50)
[2016-03-04] MEDS: FERROUS SULFATE 325 MG TABLET PO SCH ×2 (10:50→17:14)
[2016-03-04] MEDS: SENNOSIDES/DOCUSATE 8.6-50 MG 1 EACH TABLET PO SCH (10:50)
[2016-03-04] MEDS: FAMOTIDINE 20 MG TABLET PO SCH ×2 (10:50→22:17)
[2016-03-05] MEDS: IBUPROFEN 800 MG TABLET PO SCH (05:10)
--- NOTE | 2016-03-05 06:25 | L&D Current Admission ---
Current Admit Datetime Report Generated by CPN: 03/05/2016 06:00 ADMISSION INFORMATION Current Admit Date/Time: 03/03/2016 00:08 (03/02/2016 22:00:Charu Barraza RN) Reason for Admission: Onset of Labor (03/02/2016 22:00:Charu Barraza RN) Chief Complaint: Contractions (03/02/2016 22:00:Charu Barraza RN) Medications During : Ferrous Sulfate (Iron) (03/02/2016 22:00:Charu Barraza RN) Meds During -Oth: diclegis, iron, vit b/vit c (03/02/2016 22:00:Charu Barraza RN) EGA per Dates: 40.4 (03/02/2016 22:00:QS system process) Method of Arrival: Wheelchair (03/02/2016 22:00:Charu Barraza RN) Admitted From: Home (03/02/2016 22:00:Charu Barraza RN) Reason for Induction: Not Applicable (03/02/2016 22:00:Charu Barraza RN) Records Available: Yes (03/02/2016 22:00:Charu Barraza RN) General Admission Information: Reviewed; Updated; Confirmed (03/02/2016 22:00:Charu Barraza RN) General Admission Reviewed By: Guero Barraza RN (03/02/2016 22:00:Charu Barraza RN) BELONGINGS/ADVANCED DIRECTIVES Other Belongings: see [facility] belongings form (03/02/2016 22:00:Charu Barraza RN) Advance Direct for Healthcare: No, and Wants No Information (03/02/2016 22:00:Charu Barraza RN) Durable Power of Wave Guide Assembler: No (03/02/2016 22:00:Charu Barraza RN) Living Will: No (03/02/2016 22:00:Charu Barraza RN) Organ Donor: Yes (03/02/2016 22:00:Charu Barraza RN) Pt Rights Information Given: Yes (03/02/2016 22:00:Charu Barraza RN) Pt Understands Pt Rights: Yes (03/02/2016 22:00:Charu Barraza RN) LEARNING ASSESSMENT Knowledge Level: Understands L_D Process (03/02/2016 22:00:Charu Barraza RN) Barriers to Learning: Emotional State; Pain (03/02/2016 22:00:Charu Barraza RN) Learning Readiness: Unable to Participate (03/02/2016 22:00:Charu Barraza RN) Learning Needs: Labor and Delivery Process; Pain Management; Symptoms to Report; Treatment Plan; Medication; Diagnosis; Nutrition; Equipment; Infant Care (03/02/2016 22:00:Charu Barraza RN) DOMESTIC VIOLANCE SCREENING Reason Unable to Complete Screen: No Opportunity to Talk Privately (03/02/2016 22:00:Charu Barraza RN) NUTRITIONAL/FUNCTIONAL SCREENING Problem with Appetite >5 Days: No (03/02/2016 22:00:Charu Barraza RN) Chew/Swallow Difficulties: No (03/02/2016 22:00:Charu Barraza RN) Inappropriate Wt Gain/Loss: No (03/02/2016 22:00:Charu Barraza RN) Presence Skin Breakdown/Ulcer: No (03/02/2016 22:00:Charu Barraza RN) Special Diet: No (03/02/2016 22:00:Charu Barraza RN) Pt Requests Creative Writing Teacher Visit: No (03/02/2016 22:00:Charu Barraza RN) Hx of Any of the Following?: N/A (03/02/2016 22:00:Charu Barraza RN) New Diagnosis of: N/A (03/02/2016 22:00:Charu Barraza RN) Requires Assist w/Ambulation: No (03/02/2016 22:00:Charu Barraza RN) Uses Assist Device to Ambulate: No (03/02/2016 22:00:Charu Barraza RN) Pt Requires Help w/ADL's: No (03/02/2016 22:00:Charu Barraza RN)
--- NOTE | 2016-03-05 06:25 | L&D General Admission ---
General Admit Datetime Report Generated by CPN: 03/05/2016 06:00 INFORMATION Patient Age: 30 (02/15/2016 10:59:QS system process) EDC: 02/28/2016 00:00 (02/15/2016 11:02:Maryanne Lindsey RN) : 3 (02/15/2016 11:02:Maryanne Lindsey RN) Para: 1 (02/25/2016 21:30:Maryanne Lindsey RN) Baby, Number in Womb: 1 (02/25/2016 21:30:Maryanne Lindsey RN) CARE Primary Administration Specialist: [facility] (02/15/2016 11:02:Maryanne Lindsey RN) Month of 1st Visit: September 2015 (02/15/2016 11:02:Maryanne Lindsey RN) Adequate Care: No (02/15/2016 11:02:Maryanne Lindsey RN) Height (in): 64 (03/03/2016 11:45:QS system process) ALLERGIES Medication Allergy: No (02/15/2016 11:02:Maryanne Lindsey RN) Medication Allergies: No Known Allergies (03/02/2016) (03/02/2016 21:37:QS system process) Latex Allergy: No Latex Allergies (02/15/2016 11:02:Maryanne Lindsey RN) COMMUNICATION Primary Language: Georgian (02/15/2016 11:02:Maryanne Lindsey RN) Medical Tx Preferred Language: Georgian (02/15/2016 11:02:Charu Barraza RN) Georgian Communication Ability: Speaks Georgian; Reads Georgian (02/15/2016 11:02:Belkis Hdez RN) Communication Barrier(s): None (02/15/2016 11:02:Belkis Hdez RN) DEMOGRAPHICS Address: [address] [place] [id number] (02/15/2016 10:59:QS system process) Zipcode: [id number] (02/15/2016 10:59:QS system process) Home (02/15/2016 10:59:QS system process) SSN: [id number] (02/15/2016 10:59:QS system process) Next of Kin Name: ADAM CALLEJAS (02/15/2016 10:59:QS system process) Next of Kin (02/15/2016 10:59:QS system process) Next of Kin Relationship: MO (02/15/2016 10:59:QS system process) Date of : 1985 (02/15/2016 10:59:QS system process) Marital Status: Legally (02/15/2016 10:59:QS system process) Sex: Female (02/15/2016 10:59:QS system process) Race: (02/15/2016 10:59:QS system process) Ethnicity: Non- or (02/15/2016 10:59:QS system process) Moravian: None (02/15/2016 10:59:QS system process) FOB Involved: No (02/15/2016 11:02:Charu Barraza RN) DRUG AND ALCOHOL USE Alcohol: No (02/15/2016 11:02:Charu Barraza RN) Cigarettes: Current Everyday Smoker. [id number] (02/15/2016 11:02:Charu Barraza RN) Cigarette Comments: 1/2 ppd (02/15/2016 11:02:Charu Barraza RN) Marijuana: No (02/15/2016 11:02:Charu Barraza RN) Cocaine: No (02/15/2016 11:02:Charu Barraza RN) Other Illicit Drugs: No (02/15/2016 11:02:Charu Barraza RN) VACCINE HISTORY Influenza Vaccine: No (02/15/2016 11:02:Charu Barraza RN) Pneumococcal Vaccine: No (02/15/2016 11:02:Charu Barraza RN) Tetanus Vaccine: Yes (02/15/2016 11:02:Charu Barraza RN) Tdap Vaccine: Yes (02/15/2016 11:02:Charu Barraza RN) Hepatitis B Vaccine: Yes (02/15/2016 11:02:Charu Barraza RN) Maintenance Machinist: [facility] (02/15/2016 11:02:Belkis Hdez RN) Feeding Preference: Breast (02/15/2016 11:02:Charu Barraza RN) Benefit of Breast Feed Discussed: Yes (02/15/2016 11:02:Charu Barraza RN) Circumcision: Yes (02/15/2016 11:02:Charu Barraza RN) Tubal Authorization Signed: N/A (02/15/2016 11:02:Charu Barraza RN) Consent: N/A (02/15/2016 11:02:Charu Barraza RN) Consent Signed: N/A (02/15/2016 11:02:Charu Barraza RN) Pain Management Plans: Medications; Epidural (02/15/2016 11:02:Charu Barraza RN) Plans for Labor and Delivery: None (02/15/2016 11:02:Belkis Hdez RN) Support Person: Tamica Steele (02/15/2016 11:02:Charu Barraza RN) Support Person Relationship: Mother (02/15/2016 11:02:Charu Barraza RN) Cultural/Spritual Practice: No (02/15/2016 11:02:Charu Barraza RN) Spir/Cult Dietary Needs: No (02/15/2016 11:02:Charu Barraza RN) LIVING SITUATION/DISCHARGE PLAN Living Arrangements: House (02/15/2016 11:02:Charu Barraza RN) Adequate Access to:: Electric; Heat; Refrigeration; Plumbing/Running water; Phone; Transportation (02/15/2016 11:02:Charu Barraza RN) WIC Program: Yes (02/15/2016 11:02:Charu Barraza RN) Discharge Multiple Cut Off Saw Operator Person: Tamica Steele (02/15/2016 11:02:Charu Barraza RN) Person to Help after Discharge: Tamica Steele (02/15/2016 11:02:Charu Barraza RN) Currently Using Commun Resources: Yes (02/15/2016 11:02:Charu Barraza RN) Specify Current Resource Used: medicaid (02/15/2016 11:02:Charu Barraza RN) Car Seat for Discharge: Yes (02/15/2016 11:02:Charu Barraza RN) Adoption Requested: No (02/15/2016 11:02:Charu Barraza RN) Pt Contact w/infant Post : N/A (02/15/2016 11:02:Charu Barraza RN) LABS Blood Type: A Positive (02/15/2016 11:02:Maryanne Lindsey RN) Antibody Screen: Negative (02/15/2016 11:02:Karime Henson RN) Rho(G) this : Not Applicable (02/15/2016 11:02:Karime Henson RN) Hemoglobin: 9.9 L (03/04/2016 07:06:QS system process) Hematocrit: 30.7 L (03/04/2016 07:06:QS system process) MCV: 91 (03/04/2016 07:06:QS system process) Group Beta Strep: Negative (02/15/2016 11:02:Karime Henson RN) Gonorrhea: Negative (02/15/2016 11:02:Maryanne Lindsey RN) Chlamydia: Negative (02/15/2016 11:02:Maryanne Lindsey RN) RPR/VDRL: Nonreactive (02/15/2016 11:02:Maryanne Lindsey RN) Hepatitis B: Negative (02/15/2016 11:02:Maryanne Lindsey RN) Rubella: Immune (02/15/2016 11:02:Maryanne Lindsey RN) OB/PREVIOUS HISTORY Previous Procedures: Ultrasound; NST (02/15/2016 11:02:Belkis dHez RN) Current Procedures: Ultrasound; NST (02/15/2016 11:02:Belkis Hdez RN) History of Previous : No (02/15/2016 11:02:Charu Barraza RN) History of Gestational Diabetes: No (02/15/2016 11:02:Charu Barraza RN) History of PIH: No (02/15/2016 11:02:Charu Barraza RN) History of Incompetent Cervix: No (02/15/2016 11:02:Charu Barraza RN) History of Placenta Previa/Abrup: No (02/15/2016 11:02:Charu Barraza RN) History of Macrosomia: No (02/15/2016 11:02:Charu Barraza RN) History of IUGR: No (02/15/2016 11:02:Charu Barraza RN) History of Hemorrhage: No (02/15/2016 11:02:Charu Barraza RN) History of Loss/Stillborn: No (02/15/2016 11:02:Charu Barraza RN) History of : No (02/15/2016 11:02:Charu Barraza RN) History of D (Rh) Sensitization: No (02/15/2016 11:02:Charu Barraza RN) History Recurrent Loss/Stillborn: No (02/15/2016 11:02:Charu Barraza RN) History Depression/PP Depression: Yes (02/15/2016 11:02:Charu Barraza RN) History of Uterine Anomaly/KATHY: No (02/15/2016 11:02:Charu Barraza RN) History of Infertility: No (02/15/2016 11:02:Charu Barraza RN) History of ART Treatment: No (02/15/2016 11:02:Charu Barraza RN) History of KATHY: No (02/15/2016 11:02:Charu Barraza RN) Comments Obstetrical History: G1: 2008 G2: SAB 2009 G3: Current, late entry to care 20 wk 6 d (02/15/2016 11:02:Charu Barraza RN) MEDICAL HISTORY Med Hx Diabetes: No (02/15/2016 11:02:Charu Barraza RN) Med Hx Hypertension: No (02/15/2016 11:02:Charu Barraza RN) Med Hx Heart Disease: No (02/15/2016 11:02:Charu Barraza RN) Med Hx Autoimmune Disorder: No (02/15/2016 11:02:Charu Barraza RN) Med Hx Kidney Disease/UTI: No (02/15/2016 11:02:Charu Barraza RN) Med Hx Neurologic/Epilepsy: No (02/15/2016 11:02:Charu Barraza RN) Med Hx Psychiatric Disorders: No (02/15/2016 11:02:Charu Barraza RN) Med Hx Hepatitis/Liver Disease: No (02/15/2016 11:02:Charu Barraza RN) Med Hx Varicosities/Phlebitis: No (02/15/2016 11:02:Charu Barraza RN) Med Hx Thyroid Dysfunction: No (02/15/2016 11:02:Charu Barraza RN) Med Hx Trauma/Violence: No (02/15/2016 11:02:Charu Barraza RN) Med Hx Blood Transfusion: No (02/15/2016 11:02:Charu Barraza RN) Med Hx Pulmonary (Asthma,TB): No (02/15/2016 11:02:Charu Barraza RN) Med Hx Breast: No (02/15/2016 11:02:Charu Barraza RN) Med Hx MEDICAL INSURANCE CODING SPECIALIST Surgery: No (02/15/2016 11:02:Charu Barraza RN) Med Hx Hospitalization/Surgery: Yes (02/15/2016 11:02:Charu Barraza RN) Med Hx Anesthetic Complications: No (02/15/2016 11:02:Charu Barraza RN) Med Hx Abnormal Pap Smear: Yes (02/15/2016 11:02:Charu Barraza RN) Other Medical Diseases: No (02/15/2016 11:02:Charu Barraza RN) Med Hx Significant Family Hx: No (02/15/2016 11:02:Charu Barraza RN) Details of Med/Surg Hx: LGSIL pap; appy 2013; depression/anxiety, with meds in past (02/15/2016 11:02:Charu Barraza RN) INFECTIOUS HISTORY Inf Hx Gonorrhea: No (02/15/2016 11:02:Charu Barraza RN) Inf Hx Chlamydia: No (02/15/2016 11:02:Charu Barraza RN) Inf Hx Syphilis: No (02/15/2016 11:02:Charu Barraza RN) Inf Hx HIV/AIDS: No (02/15/2016 11:02:Charu Barraza RN) Inf Hx Human Papilloma Virus: No (02/15/2016 11:02:Charu Barraza RN) Inf Hx Pt/Partner Genital Herpes: No (02/15/2016 11:02:Chaur Barraza RN) Inf Hx Tuberculosis/Exposure: No (02/15/2016 11:02:Charu Barraza RN) Inf Hx Hepatitis B,C: No (02/15/2016 11:02:Charu Barraza RN) Inf Hx Rash or Viral Illness: No (02/15/2016 11:02:Charu Barraza RN) GENETIC HISTORY Gen Hx Age >=35 at ROXIE: No (02/15/2016 11:02:Charu Barraza RN) Gen Hx Thalassemia: No (02/15/2016 11:02:Charu Barraza RN) Gen Hx Congenital Heart Defect: No (02/15/2016 11:02:Charu Barraza RN) Gen Hx Neural Tube Defect: No (02/15/2016 11:02:Charu Barraza RN) Gen Hx Down's Syndrome: No (02/15/2016 11:02:Charu Barraza RN) Gen Hx Gamaliel-Sachs: No (02/15/2016 11:02:Charu Barraza RN) Gen Hx Aura: No (02/15/2016 11:02:Charu Barraza RN) Gen Hx Familial Dysautonomia: No (02/15/2016 11:02:Charu Barraza RN) Gen Hx Sickle Cell Disease/Trait: No (02/15/2016 11:02:Charu Barraza RN) Gen Hx Hemophilia/Blood Disorder: No (02/15/2016 11:02:Charu Barraza RN) Gen Hx Muscular Dystrophy: No (02/15/2016 11:02:Charu Barraza RN) Gen Hx Cystic Fibrosis: No (02/15/2016 11:02:Charu Barraza RN) Gen Hx Huntingtons Chorea: No (02/15/2016 11:02:Charu Barraza RN) Gen Hx Mental Retardation/Autism: No (02/15/2016 11:02:Charu Barraza RN) Gen Hx Tested for Fragile X: No (02/15/2016 11:02:Charu Barraza RN) Gen Hx Other Inher/Chromosomal: No (02/15/2016 11:02:Charu Barraza RN) Gen Hx Maternal Metabolic DO: No (02/15/2016 11:02:Charu Barraza RN) Gen Hx Pt Father or FOB Defect: No (02/15/2016 11:02:Charu Barraza RN) Gen Hx Other Genetic History: No (02/15/2016 11:02:Charu Barraza RN) Gen Hx Drugs/Meds since LMP: Yes (02/15/2016 11:02:Charu Barraza RN) Gen Hx Medications: diclegis, iron, vit b/ vit c (02/15/2016 11:02:Charu Barraza RN)
[2016-03-05 08:59] VITALS: BP 101/44
[2016-03-05] MEDS: FERROUS SULFATE 325 MG TABLET PO SCH (09:51)
[2016-03-05] MEDS: SENNOSIDES/DOCUSATE 8.6-50 MG 1 EACH TABLET PO SCH (09:51)
[2016-03-05] MEDS: PRENATAL VITAMIN W-O CA NO5/FE FUMARATE/FA CAPSULE PO SCH (09:52)
[2016-03-05] MEDS: DOCUSATE SODIUM 100 MG CAPSULE PO SCH (09:52)
[2016-03-05] MEDS: FAMOTIDINE 20 MG TABLET PO SCH (09:52)
--- NOTE | 2016-03-05 10:56 | PDOC DISCHARGE SUMMARY ---
Discharge Summary-OB Discharge Date: 03/05/16 - Final Diagnosis (1) Delivery normal Is this a current diagnosis for this admission?: Yes - Discharge Medication Home Medications: Pnv95/Ferrous Fumarate/FA [ Caplet] 1 each PO DAILY #30 tablet 07/21/15 Doxylamine/Pyridoxine HCl [Diclegis Dr 10-10 mg Tablet] 10 mg PO DAILY 02/15/16 Docusate Sodium [Colace 100 mg Capsule] 100 mg PO BID #90 capsule 03/05/16 Ferrous Sulfate [Feosol 325 mg Tablet] 325 mg PO BID #90 tablet 03/05/16 Ibuprofen [Motrin 800 mg Tablet] 800 mg PO Q8 #90 tablet 03/05/16 Reason(s) for Admission: Onset of Labor Procedures: None Intrapartum Procedure(s): Spontaneous Vaginal Delivery - Data Baby 1 Male at 1 minute: 8 at 5 minutes: 9 Weight: 3601 kg Home with Mother: Yes Complications: No - Diagnosis Test Laboratory: Temp Pulse Resp BP Pulse Ox 98.1 F 66 20 101/44 L 98 03/05/16 08:03 03/05/16 08:03 03/05/16 08:03 03/05/16 08:03 03/05/16 08:03 03/02/16 03/02/16 03/04/16 21:45 23:50 07:06 RBC 3.91 3.36 L Hgb 11.5 L 9.9 L Hct 35.5 L 30.7 L Urine Opiates Screen NEGATIVE - Discharge information/Instructions Discharge Activity: Activity As Tolerated Discharge Diet: Regular Disposition: HOME, SELF-CARE Follow up with: [facility] in: 4
--- NOTE | 2016-03-05 10:58 | PDOC PROGRESS REPORT ---
Subjective-OB Subjective: Post Delivery Day: 30 year old. Denies any needs at this time bonding well with infant left breast scabbed area small compression strip [id number] mild lochia dtrs +1/ no clonus/+1 pitting edema pt declines control at this time to follow up with Ann MORFIN for breast eval/ breast feeding 2-3 days reviewed with pt discussed with documentum consultant Physical Exam (OB) Vital Signs: Temp Pulse Resp BP Pulse Ox 98.1 F 66 20 101/44 L 98 03/05/16 08:03 03/05/16 08:03 03/05/16 08:03 03/05/16 08:03 03/05/16 08:03 Intake & Output 03/04/16 03/05/16 03/06/16 06:59 06:59 06:59 Intake Total 400 Balance 400 Baby 1 Male 3601 kg - Lochia Lochia Amount: Scant < 10 ml Lochia Color: Rubra/Red - Abdomen Description: Soft, Round Hernia Present: No Fundal Description: Firm Fundal Height: u/u - u/2 Objective-Diagnostic Laboratory: 03/04/16 07:06 Assessment and Plan(PN) - Assessment and Plan (1) Delivery normal Is this a current diagnosis for this admission?: Yes
--- NOTE | 2016-03-06 06:25 | L&D General Admission ---
General Admit Datetime Report Generated by CPN: 03/06/2016 06:00 INFORMATION Patient Age: 30 (02/15/2016 10:59:QS system process) EDC: 02/28/2016 00:00 (02/15/2016 11:02:Maryanne Lindsey RN) : 3 (02/15/2016 11:02:Maryanne Lindsey RN) Para: 1 (02/25/2016 21:30:Maryanne Lindsey RN) Baby, Number in Womb: 1 (02/25/2016 21:30:Maryanne Lindsey RN) CARE Primary Gamma Ray Operator: [facility] (02/15/2016 11:02:Maryanne Lindsey RN) Month of 1st Visit: September 2015 (02/15/2016 11:02:Maryanne Lindsey RN) Adequate Care: No (02/15/2016 11:02:Maryanne Lindsey RN) Height (in): 64 (03/03/2016 11:45:QS system process) ALLERGIES Medication Allergy: No (02/15/2016 11:02:Maryanne Lindsey RN) Medication Allergies: No Known Allergies (03/02/2016) (03/02/2016 21:37:QS system process) Latex Allergy: No Latex Allergies (02/15/2016 11:02:Maryanne Lindsey RN) COMMUNICATION Primary Language: Lebanese (02/15/2016 11:02:Maryanne Lindsey RN) Medical Tx Preferred Language: Lebanese (02/15/2016 11:02:Charu Barraza RN) Lebanese Communication Ability: Speaks Lebanese; Reads Lebanese (02/15/2016 11:02:Belkis Hdez RN) Communication Barrier(s): None (02/15/2016 11:02:Belkis Hdez RN) DEMOGRAPHICS Address: [address] [place] [id number] (02/15/2016 10:59:QS system process) Zipcode: [address] (02/15/2016 10:59:QS system process) Home (02/15/2016 10:59:QS system process) SSN: [id number] (02/15/2016 10:59:QS system process) Next of Kin Name: ADAM CALLEJAS (02/15/2016 10:59:QS system process) Next of Kin (02/15/2016 10:59:QS system process) Next of Kin Relationship: MO (02/15/2016 10:59:QS system process) Date of : 1985 (02/15/2016 10:59:QS system process) Marital Status: Legally (02/15/2016 10:59:QS system process) Sex: Female (02/15/2016 10:59:QS system process) Race: (02/15/2016 10:59:QS system process) Ethnicity: Non- or (02/15/2016 10:59:QS system process) Faith: None (02/15/2016 10:59:QS system process) FOB Involved: No (02/15/2016 11:02:Charu Barraza RN) DRUG AND ALCOHOL USE Alcohol: No (02/15/2016 11:02:Charu Barraza RN) Cigarettes: Current Everyday Smoker. [id number] (02/15/2016 11:02:Charu Barraza RN) Cigarette Comments: 1/2 ppd (02/15/2016 11:02:Charu Barraza RN) Marijuana: No (02/15/2016 11:02:Charu Barraza RN) Cocaine: No (02/15/2016 11:02:Charu Barraza RN) Other Illicit Drugs: No (02/15/2016 11:02:Charu Barraza RN) VACCINE HISTORY Influenza Vaccine: No (02/15/2016 11:02:Charu Barraza RN) Pneumococcal Vaccine: No (02/15/2016 11:02:Charu Barraza RN) Tetanus Vaccine: Yes (02/15/2016 11:02:Charu Barraza RN) Tdap Vaccine: Yes (02/15/2016 11:02:Charu Barraza RN) Hepatitis B Vaccine: Yes (02/15/2016 11:02:Charu Barraza RN) Inspector Final Assembly Conveyor Line: [facility] (02/15/2016 11:02:Belkis Hdez RN) Feeding Preference: Breast (02/15/2016 11:02:Charu Barraza RN) Benefit of Breast Feed Discussed: Yes (02/15/2016 11:02:Charu Barraza RN) Circumcision: Yes (02/15/2016 11:02:Charu Barraza RN) Tubal Authorization Signed: N/A (02/15/2016 11:02:Charu Barraza RN) Consent: N/A (02/15/2016 11:02:Charu Barraza RN) Consent Signed: N/A (02/15/2016 11:02:Charu Barraza RN) Pain Management Plans: Medications; Epidural (02/15/2016 11:02:Charu Barraza RN) Plans for Labor and Delivery: None (02/15/2016 11:02:Belkis Hdez RN) Support Person: Tamica Steele (02/15/2016 11:02:Charu Barraza RN) Support Person Relationship: Mother (02/15/2016 11:02:Charu Barraza RN) Cultural/Spritual Practice: No (02/15/2016 11:02:Charu Barraza RN) Spir/Cult Dietary Needs: No (02/15/2016 11:02:Cahru Barraza RN) LIVING SITUATION/DISCHARGE PLAN Living Arrangements: House (02/15/2016 11:02:Charu Barraza RN) Adequate Access to:: Electric; Heat; Refrigeration; Plumbing/Running water; Phone; Transportation (02/15/2016 11:02:Charu Barraza RN) WIC Program: Yes (02/15/2016 11:02:Charu Barraza RN) Discharge Ditching Machine Operator Person: Tamica Steele (02/15/2016 11:02:Charu Barraza RN) Person to Help after Discharge: Tamica Steele (02/15/2016 11:02:Charu Barraza RN) Currently Using Commun Resources: Yes (02/15/2016 11:02:Charu Barraza RN) Specify Current Resource Used: medicaid (02/15/2016 11:02:Charu Barraza RN) Car Seat for Discharge: Yes (02/15/2016 11:02:Charu Barraza RN) Adoption Requested: No (02/15/2016 11:02:Charu Barraza RN) Pt Contact w/infant Post : N/A (02/15/2016 11:02:Charu Barraza RN) LABS Blood Type: A Positive (02/15/2016 11:02:Maryanne Lindsey RN) Antibody Screen: Negative (02/15/2016 11:02:Karime Henson RN) Rho(G) this : Not Applicable (02/15/2016 11:02:Karime Henson RN) Hemoglobin: 9.9 L (03/04/2016 07:06:QS system process) Hematocrit: 30.7 L (03/04/2016 07:06:QS system process) MCV: 91 (03/04/2016 07:06:QS system process) Group Beta Strep: Negative (02/15/2016 11:02:Karime Henson RN) Gonorrhea: Negative (02/15/2016 11:02:Maryanne Lindsey RN) Chlamydia: Negative (02/15/2016 11:02:Maryanne Lindsey RN) RPR/VDRL: Nonreactive (02/15/2016 11:02:Maryanne Lindsey RN) Hepatitis B: Negative (02/15/2016 11:02:Maryanne Lindsey RN) Rubella: Immune (02/15/2016 11:02:Maryanne Lindsey RN) OB/PREVIOUS HISTORY Previous Procedures: Ultrasound; NST (02/15/2016 11:02:Belkis Hdez RN) Current Procedures: Ultrasound; NST (02/15/2016 11:02:Belkis Hdez RN) History of Previous : No (02/15/2016 11:02:Charu Barraza RN) History of Gestational Diabetes: No (02/15/2016 11:02:Charu Barraza RN) History of PIH: No (02/15/2016 11:02:Charu Barraza RN) History of Incompetent Cervix: No (02/15/2016 11:02:Charu Barraza RN) History of Placenta Previa/Abrup: No (02/15/2016 11:02:Charu Barraza RN) History of Macrosomia: No (02/15/2016 11:02:Charu Barraza RN) History of IUGR: No (02/15/2016 11:02:Charu Barraza RN) History of Hemorrhage: No (02/15/2016 11:02:Charu Barraza RN) History of Loss/Stillborn: No (02/15/2016 11:02:Charu Barraza RN) History of : No (02/15/2016 11:02:Charu Barraza RN) History of D (Rh) Sensitization: No (02/15/2016 11:02:Charu Barraza RN) History Recurrent Loss/Stillborn: No (02/15/2016 11:02:Charu Barraza RN) History Depression/PP Depression: Yes (02/15/2016 11:02:Charu Barraza RN) History of Uterine Anomaly/KATHY: No (02/15/2016 11:02:Charu Barraza RN) History of Infertility: No (02/15/2016 11:02:Charu Barraza RN) History of ART Treatment: No (02/15/2016 11:02:Charu Barraza RN) History of KATHY: No (02/15/2016 11:02:Charu Barraza RN) Comments Obstetrical History: G1: 2008 G2: SAB 2009 G3: Current, late entry to care 20 wk 6 d (02/15/2016 11:02:Charu Barraza RN) MEDICAL HISTORY Med Hx Diabetes: No (02/15/2016 11:02:Charu Barraza RN) Med Hx Hypertension: No (02/15/2016 11:02:Charu Barraza RN) Med Hx Heart Disease: No (02/15/2016 11:02:Charu Barraza RN) Med Hx Autoimmune Disorder: No (02/15/2016 11:02:hCaru Barraza RN) Med Hx Kidney Disease/UTI: No (02/15/2016 11:02:Charu Barraza RN) Med Hx Neurologic/Epilepsy: No (02/15/2016 11:02:Charu Barraza RN) Med Hx Psychiatric Disorders: No (02/15/2016 11:02:Charu Barraza RN) Med Hx Hepatitis/Liver Disease: No (02/15/2016 11:02:Charu Barraza RN) Med Hx Varicosities/Phlebitis: No (02/15/2016 11:02:Charu Barraza RN) Med Hx Thyroid Dysfunction: No (02/15/2016 11:02:Charu Barraza RN) Med Hx Trauma/Violence: No (02/15/2016 11:02:Charu Barraza RN) Med Hx Blood Transfusion: No (02/15/2016 11:02:Charu Barraza RN) Med Hx Pulmonary (Asthma,TB): No (02/15/2016 11:02:Charu Barraza RN) Med Hx Breast: No (02/15/2016 11:02:Charu Barraza RN) Med Hx POULTRY PROCESSING SUPERVISOR Surgery: No (02/15/2016 11:02:Charu Barraza RN) Med Hx Hospitalization/Surgery: Yes (02/15/2016 11:02:Charu Barraza RN) Med Hx Anesthetic Complications: No (02/15/2016 11:02:Charu Barraza RN) Med Hx Abnormal Pap Smear: Yes (02/15/2016 11:02:Charu Barraza RN) Other Medical Diseases: No (02/15/2016 11:02:Charu Barraza RN) Med Hx Significant Family Hx: No (02/15/2016 11:02:Charu Barraza RN) Details of Med/Surg Hx: LGSIL pap; appy 2013; depression/anxiety, with meds in past (02/15/2016 11:02:Charu Barraza RN) INFECTIOUS HISTORY Inf Hx Gonorrhea: No (02/15/2016 11:02:Charu Barraza RN) Inf Hx Chlamydia: No (02/15/2016 11:02:Charu Barraza RN) Inf Hx Syphilis: No (02/15/2016 11:02:Charu Barraza RN) Inf Hx HIV/AIDS: No (02/15/2016 11:02:Charu Barraza RN) Inf Hx Human Papilloma Virus: No (02/15/2016 11:02:Charu Barraza RN) Inf Hx Pt/Partner Genital Herpes: No (02/15/2016 11:02:Charu Barraza RN) Inf Hx Tuberculosis/Exposure: No (02/15/2016 11:02:Charu Barraza RN) Inf Hx Hepatitis B,C: No (02/15/2016 11:02:Charu Barraza RN) Inf Hx Rash or Viral Illness: No (02/15/2016 11:02:Charu Barraza RN) GENETIC HISTORY Gen Hx Age >=35 at ROXIE: No (02/15/2016 11:02:Charu Barraza RN) Gen Hx Thalassemia: No (02/15/2016 11:02:Charu Barraza RN) Gen Hx Congenital Heart Defect: No (02/15/2016 11:02:Charu Barraza RN) Gen Hx Neural Tube Defect: No (02/15/2016 11:02:Charu Barraza RN) Gen Hx Down's Syndrome: No (02/15/2016 11:02:Charu Barraza RN) Gen Hx Gamaliel-Sachs: No (02/15/2016 11:02:Charu Barraza RN) Gen Hx Aura: No (02/15/2016 11:02:Charu Barraza RN) Gen Hx Familial Dysautonomia: No (02/15/2016 11:02:Charu Barraza RN) Gen Hx Sickle Cell Disease/Trait: No (02/15/2016 11:02:Charu Barraza RN) Gen Hx Hemophilia/Blood Disorder: No (02/15/2016 11:02:Charu Barraza RN) Gen Hx Muscular Dystrophy: No (02/15/2016 11:02:Charu Barraza RN) Gen Hx Cystic Fibrosis: No (02/15/2016 11:02:Charu Barraza RN) Gen Hx Huntingtons Chorea: No (02/15/2016 11:02:Charu Barraza RN) Gen Hx Mental Retardation/Autism: No (02/15/2016 11:02:Charu Barraza RN) Gen Hx Tested for Fragile X: No (02/15/2016 11:02:Charu Barraza RN) Gen Hx Other Inher/Chromosomal: No (02/15/2016 11:02:Charu Barraza RN) Gen Hx Maternal Metabolic DO: No (02/15/2016 11:02:Charu Barraza RN) Gen Hx Pt Father or FOB Defect: No (02/15/2016 11:02:Charu Barraza RN) Gen Hx Other Genetic History: No (02/15/2016 11:02:Charu Barraza RN) Gen Hx Drugs/Meds since LMP: Yes (02/15/2016 11:02:Charu Barraza RN) Gen Hx Medications: diclegis, iron, vit b/ vit c (02/15/2016 11:02:Charu Barraza RN)
--- NOTE | 2016-03-06 06:25 | L&D Current Admission ---
Current Admit Datetime Report Generated by CPN: 03/06/2016 06:00 ADMISSION INFORMATION Current Admit Date/Time: 03/03/2016 00:08 (03/02/2016 22:00:Charu Barraza RN) Reason for Admission: Onset of Labor (03/02/2016 22:00:Charu Barraaz RN) Chief Complaint: Contractions (03/02/2016 22:00:Charu Barraza RN) Medications During : Ferrous Sulfate (Iron) (03/02/2016 22:00:Charu Barraza RN) Meds During -Oth: diclegis, iron, vit b/vit c (03/02/2016 22:00:Charu Barraza RN) EGA per Dates: 40.4 (03/02/2016 22:00:QS system process) Method of Arrival: Wheelchair (03/02/2016 22:00:Charu Barraza RN) Admitted From: Home (03/02/2016 22:00:Charu Barraza RN) Reason for Induction: Not Applicable (03/02/2016 22:00:Charu Barraza RN) Records Available: Yes (03/02/2016 22:00:Charu Barraza RN) General Admission Information: Reviewed; Updated; Confirmed (03/02/2016 22:00:Charu Barraza RN) General Admission Reviewed By: Guero Barraza RN (03/02/2016 22:00:Charu Barraza RN) BELONGINGS/ADVANCED DIRECTIVES Other Belongings: see [facility] belongings form (03/02/2016 22:00:Charu Barraza RN) Advance Direct for Healthcare: No, and Wants No Information (03/02/2016 22:00:Charu Barraza RN) Durable Power of Food Expeditor: No (03/02/2016 22:00:Charu Barraza RN) Living Will: No (03/02/2016 22:00:Charu Barraza RN) Organ Donor: Yes (03/02/2016 22:00:Charu Barraza RN) Pt Rights Information Given: Yes (03/02/2016 22:00:Charu Barraza RN) Pt Understands Pt Rights: Yes (03/02/2016 22:00:Charu Barraza RN) LEARNING ASSESSMENT Knowledge Level: Understands L_D Process (03/02/2016 22:00:Charu Barraza RN) Barriers to Learning: Emotional State; Pain (03/02/2016 22:00:Charu Barraza RN) Learning Readiness: Unable to Participate (03/02/2016 22:00:Charu Barraza RN) Learning Needs: Labor and Delivery Process; Pain Management; Symptoms to Report; Treatment Plan; Medication; Diagnosis; Nutrition; Equipment; Infant Care (03/02/2016 22:00:Charu Barraza RN) DOMESTIC VIOLANCE SCREENING Reason Unable to Complete Screen: No Opportunity to Talk Privately (03/02/2016 22:00:Charu Barraza RN) NUTRITIONAL/FUNCTIONAL SCREENING Problem with Appetite >5 Days: No (03/02/2016 22:00:Charu Barraza RN) Chew/Swallow Difficulties: No (03/02/2016 22:00:Charu Barraza RN) Inappropriate Wt Gain/Loss: No (03/02/2016 22:00:Charu Barraza RN) Presence Skin Breakdown/Ulcer: No (03/02/2016 22:00:Charu Barraza RN) Special Diet: No (03/02/2016 22:00:Charu Barraza RN) Pt Requests Steam Plant Records Clerk Visit: No (03/02/2016 22:00:Charu Barraza RN) Hx of Any of the Following?: N/A (03/02/2016 22:00:Charu Barraza RN) New Diagnosis of: N/A (03/02/2016 22:00:Charu Barraza RN) Requires Assist w/Ambulation: No (03/02/2016 22:00:Charu Barraza RN) Uses Assist Device to Ambulate: No (03/02/2016 22:00:Charu Barraza RN) Pt Requires Help w/ADL's: No (03/02/2016 22:00:Charu Barraza RN)
--- NOTE | 2016-03-07 06:21 | L&D General Admission ---
General Admit Datetime Report Generated by CPN: 03/07/2016 06:00 INFORMATION Patient Age: 30 (02/15/2016 10:59:QS system process) EDC: 02/28/2016 00:00 (02/15/2016 11:02:Maryanne Lindsey RN) : 3 (02/15/2016 11:02:Maryanne Lindsey RN) Para: 1 (02/25/2016 21:30:Maryanne Lindsey RN) Baby, Number in Womb: 1 (02/25/2016 21:30:Maryanne Lindsey RN) CARE Primary Mathematics Improvement Teacher: [facility] (02/15/2016 11:02:Maryanne Lindsey RN) Month of 1st Visit: September 2015 (02/15/2016 11:02:Maryanne Lindsey RN) Adequate Care: No (02/15/2016 11:02:Maryanne Lindsey RN) Height (in): 64 (03/03/2016 11:45:QS system process) ALLERGIES Medication Allergy: No (02/15/2016 11:02:Maryanne Lindsey RN) Medication Allergies: No Known Allergies (03/02/2016) (03/02/2016 21:37:QS system process) Latex Allergy: No Latex Allergies (02/15/2016 11:02:Maryanne Lindsey RN) COMMUNICATION Primary Language: Grenadian (02/15/2016 11:02:Maryanne Lindsey RN) Medical Tx Preferred Language: Grenadian (02/15/2016 11:02:Charu Barraza RN) Grenadian Communication Ability: Speaks Grenadian; Reads Grenadian (02/15/2016 11:02:Belkis Hdez RN) Communication Barrier(s): None (02/15/2016 11:02:Belkis Hdez RN) DEMOGRAPHICS Address: [address] [place] [id number] (02/15/2016 10:59:QS system process) Zipcode: [address] (02/15/2016 10:59:QS system process) Home (02/15/2016 10:59:QS system process) SSN: [id number] (02/15/2016 10:59:QS system process) Next of Kin Name: ADAM CALLEJAS (02/15/2016 10:59:QS system process) Next of Kin (02/15/2016 10:59:QS system process) Next of Kin Relationship: [place] (02/15/2016 10:59:QS system process) Date of : 1985 (02/15/2016 10:59:QS system process) Marital Status: Legally (02/15/2016 10:59:QS system process) Sex: Female (02/15/2016 10:59:QS system process) Race: (02/15/2016 10:59:QS system process) Ethnicity: Non- or (02/15/2016 10:59:QS system process) Mandaen: None (02/15/2016 10:59:QS system process) FOB Involved: No (02/15/2016 11:02:Charu Barraza RN) DRUG AND ALCOHOL USE Alcohol: No (02/15/2016 11:02:Charu Barraza RN) Cigarettes: Current Everyday Smoker. [id number] (02/15/2016 11:02:Charu Barraza RN) Cigarette Comments: 1/2 ppd (02/15/2016 11:02:Charu Barraza RN) Marijuana: No (02/15/2016 11:02:Charu Barraza RN) Cocaine: No (02/15/2016 11:02:Charu Barraza RN) Other Illicit Drugs: No (02/15/2016 11:02:Charu Barraza RN) VACCINE HISTORY Influenza Vaccine: No (02/15/2016 11:02:Charu Barraza RN) Pneumococcal Vaccine: No (02/15/2016 11:02:Charu Barraza RN) Tetanus Vaccine: Yes (02/15/2016 11:02:Charu Barraza RN) Tdap Vaccine: Yes (02/15/2016 11:02:Charu Barraza RN) Hepatitis B Vaccine: Yes (02/15/2016 11:02:Charu Barraza RN) Director Of Broadcast: [facility] (02/15/2016 11:02:Belkis Hdez RN) Feeding Preference: Breast (02/15/2016 11:02:Charu Barraza RN) Benefit of Breast Feed Discussed: Yes (02/15/2016 11:02:Charu Barraza RN) Circumcision: Yes (02/15/2016 11:02:Charu Barraza RN) Tubal Authorization Signed: N/A (02/15/2016 11:02:Charu Barraza RN) Consent: N/A (02/15/2016 11:02:Charu Barraza RN) Consent Signed: N/A (02/15/2016 11:02:Charu Barraza RN) Pain Management Plans: Medications; Epidural (02/15/2016 11:02:Charu Barraza RN) Plans for Labor and Delivery: None (02/15/2016 11:02:Belkis Hdez RN) Support Person: Tamica Steele (02/15/2016 11:02:Charu Barraza RN) Support Person Relationship: Mother (02/15/2016 11:02:Charu Barraza RN) Cultural/Spritual Practice: No (02/15/2016 11:02:Charu Barraza RN) Spir/Cult Dietary Needs: No (02/15/2016 11:02:Charu Barraza RN) LIVING SITUATION/DISCHARGE PLAN Living Arrangements: House (02/15/2016 11:02:Charu Barraza RN) Adequate Access to:: Electric; Heat; Refrigeration; Plumbing/Running water; Phone; Transportation (02/15/2016 11:02:Charu Barraza RN) WIC Program: Yes (02/15/2016 11:02:Charu Barraza RN) Discharge Sprayer Operator Person: Tamica Steele (02/15/2016 11:02:Charu Barraza RN) Person to Help after Discharge: Tamica Steele (02/15/2016 11:02:Charu Barraza RN) Currently Using Commun Resources: Yes (02/15/2016 11:02:Charu Barraza RN) Specify Current Resource Used: medicaid (02/15/2016 11:02:Charu Barraza RN) Car Seat for Discharge: Yes (02/15/2016 11:02:Charu Barraza RN) Adoption Requested: No (02/15/2016 11:02:Charu Barraza RN) Pt Contact w/infant Post : N/A (02/15/2016 11:02:Charu Barraza RN) LABS Blood Type: A Positive (02/15/2016 11:02:Maryanne Lindsey RN) Antibody Screen: Negative (02/15/2016 11:02:Karime Henson RN) Rho(G) this : Not Applicable (02/15/2016 11:02:Karime Henson RN) Hemoglobin: 9.9 L (03/04/2016 07:06:QS system process) Hematocrit: 30.7 L (03/04/2016 07:06:QS system process) MCV: 91 (03/04/2016 07:06:QS system process) Group Beta Strep: Negative (02/15/2016 11:02:Karime Henson RN) Gonorrhea: Negative (02/15/2016 11:02:Maryanne Lindsey RN) Chlamydia: Negative (02/15/2016 11:02:Maryanne Lindsey RN) RPR/VDRL: Nonreactive (02/15/2016 11:02:Maryanne Lindsey RN) Hepatitis B: Negative (02/15/2016 11:02:Maryanne Lindsey RN) Rubella: Immune (02/15/2016 11:02:Maryanne Lindsey RN) OB/PREVIOUS HISTORY Previous Procedures: Ultrasound; NST (02/15/2016 11:02:Belkis Hdez RN) Current Procedures: Ultrasound; NST (02/15/2016 11:02:Belkis Hdez RN) History of Previous : No (02/15/2016 11:02:Charu Barraza RN) History of Gestational Diabetes: No (02/15/2016 11:02:Charu Barraza RN) History of PIH: No (02/15/2016 11:02:Charu Barraza RN) History of Incompetent Cervix: No (02/15/2016 11:02:Charu Barraza RN) History of Placenta Previa/Abrup: No (02/15/2016 11:02:Charu Barraza RN) History of Macrosomia: No (02/15/2016 11:02:Charu Barraza RN) History of IUGR: No (02/15/2016 11:02:Charu Barraza RN) History of Hemorrhage: No (02/15/2016 11:02:Charu Barraza RN) History of Loss/Stillborn: No (02/15/2016 11:02:Charu Barraza RN) History of : No (02/15/2016 11:02:Charu Barraza RN) History of D (Rh) Sensitization: No (02/15/2016 11:02:Charu Barraza RN) History Recurrent Loss/Stillborn: No (02/15/2016 11:02:Charu Barraza RN) History Depression/PP Depression: Yes (02/15/2016 11:02:Charu Barraza RN) History of Uterine Anomaly/KATHY: No (02/15/2016 11:02:Charu Barraza RN) History of Infertility: No (02/15/2016 11:02:Charu Barraza RN) History of ART Treatment: No (02/15/2016 11:02:Charu Barraza RN) History of KATHY: No (02/15/2016 11:02:Charu Barraza RN) Comments Obstetrical History: G1: 2008 G2: SAB 2009 G3: Current, late entry to care 20 wk 6 d (02/15/2016 11:02:Charu Barraza RN) MEDICAL HISTORY Med Hx Diabetes: No (02/15/2016 11:02:Charu Barraza RN) Med Hx Hypertension: No (02/15/2016 11:02:Charu Barraza RN) Med Hx Heart Disease: No (02/15/2016 11:02:Charu Barraza RN) Med Hx Autoimmune Disorder: No (02/15/2016 11:02:Charu Barraza RN) Med Hx Kidney Disease/UTI: No (02/15/2016 11:02:Charu Barraza RN) Med Hx Neurologic/Epilepsy: No (02/15/2016 11:02:Charu Barraza RN) Med Hx Psychiatric Disorders: No (02/15/2016 11:02:Charu Barraza RN) Med Hx Hepatitis/Liver Disease: No (02/15/2016 11:02:Charu Barraza RN) Med Hx Varicosities/Phlebitis: No (02/15/2016 11:02:Charu Barraza RN) Med Hx Thyroid Dysfunction: No (02/15/2016 11:02:Charu Barraza RN) Med Hx Trauma/Violence: No (02/15/2016 11:02:Charu Barraza RN) Med Hx Blood Transfusion: No (02/15/2016 11:02:Charu Barraza RN) Med Hx Pulmonary (Asthma,TB): No (02/15/2016 11:02:Charu Barraza RN) Med Hx Breast: No (02/15/2016 11:02:Charu Barraza RN) Med Hx EXPLOSIVE TECHNICIAN Surgery: No (02/15/2016 11:02:Charu Barraza RN) Med Hx Hospitalization/Surgery: Yes (02/15/2016 11:02:Charu Barraza RN) Med Hx Anesthetic Complications: No (02/15/2016 11:02:Charu Barraza RN) Med Hx Abnormal Pap Smear: Yes (02/15/2016 11:02:Charu Barraza RN) Other Medical Diseases: No (02/15/2016 11:02:Charu Barraza RN) Med Hx Significant Family Hx: No (02/15/2016 11:02:Charu Barraza RN) Details of Med/Surg Hx: LGSIL pap; appy 2013; depression/anxiety, with meds in past (02/15/2016 11:02:Charu Barraza RN) INFECTIOUS HISTORY Inf Hx Gonorrhea: No (02/15/2016 11:02:Charu Barraza RN) Inf Hx Chlamydia: No (02/15/2016 11:02:Charu Barraza RN) Inf Hx Syphilis: No (02/15/2016 11:02:Charu Barraza RN) Inf Hx HIV/AIDS: No (02/15/2016 11:02:Charu Barraza RN) Inf Hx Human Papilloma Virus: No (02/15/2016 11:02:Charu Barraza RN) Inf Hx Pt/Partner Genital Herpes: No (02/15/2016 11:02:Charu Barraza RN) Inf Hx Tuberculosis/Exposure: No (02/15/2016 11:02:Charu Barraza RN) Inf Hx Hepatitis B,C: No (02/15/2016 11:02:Charu Barraza RN) Inf Hx Rash or Viral Illness: No (02/15/2016 11:02:Charu Barraza RN) GENETIC HISTORY Gen Hx Age >=35 at R[facility]: No (02/15/2016 11:02:Charu Barraza RN) Gen Hx Thalassemia: No (02/15/2016 11:02:Charu Barraza RN) Gen Hx Congenital Heart Defect: No (02/15/2016 11:02:Charu Barraza RN) Gen Hx Neural Tube Defect: No (02/15/2016 11:02:Charu Barraza RN) Gen Hx Down's Syndrome: No (02/15/2016 11:02:Charu Barraza RN) Gen Hx Gamaliel-Sachs: No (02/15/2016 11:02:Charu Barraza RN) Gen Hx Aura: No (02/15/2016 11:02:Charu Barraza RN) Gen Hx Familial Dysautonomia: No (02/15/2016 11:02:Charu Barraza RN) Gen Hx Sickle Cell Disease/Trait: No (02/15/2016 11:02:Charu Barraza RN) Gen Hx Hemophilia/Blood Disorder: No (02/15/2016 11:02:Charu Barraza RN) Gen Hx Muscular Dystrophy: No (02/15/2016 11:02:Charu Barraza RN) Gen Hx Cystic Fibrosis: No (02/15/2016 11:02:Charu Barraza RN) Gen Hx Huntingtons Chorea: No (02/15/2016 11:02:Charu Barraza RN) Gen Hx Mental Retardation/Autism: No (02/15/2016 11:02:Charu Barraza RN) Gen Hx Tested for Fragile X: No (02/15/2016 11:02:Charu Barraza RN) Gen Hx Other Inher/Chromosomal: No (02/15/2016 11:02:Charu Barraza RN) Gen Hx Maternal Metabolic DO: No (02/15/2016 11:02:Charu Barraza RN) Gen Hx Pt Father or FOB Defect: No (02/15/2016 11:02:Charu Barraza RN) Gen Hx Other Genetic History: No (02/15/2016 11:02:Charu Barraza RN) Gen Hx Drugs/Meds since LMP: Yes (02/15/2016 11:02:Charu Barraza RN) Gen Hx Medications: diclegis, iron, vit b/ vit c (02/15/2016 11:02:Charu Barraza RN)
--- NOTE | 2016-03-07 06:21 | L&D Current Admission ---
Current Admit Datetime Report Generated by CPN: 03/07/2016 06:00 ADMISSION INFORMATION Current Admit Date/Time: 03/03/2016 00:08 (03/02/2016 22:00:Charu Barraza RN) Reason for Admission: Onset of Labor (03/02/2016 22:00:Charu Barraza RN) Chief Complaint: Contractions (03/02/2016 22:00:Charu Barraza RN) Medications During : Ferrous Sulfate (Iron) (03/02/2016 22:00:Charu Barraza RN) Meds During -Oth: diclegis, iron, vit b/vit c (03/02/2016 22:00:Charu Barraza RN) EGA per Dates: 40.4 (03/02/2016 22:00:QS system process) Method of Arrival: Wheelchair (03/02/2016 22:00:Charu Barraza RN) Admitted From: Home (03/02/2016 22:00:Charu Barraza RN) Reason for Induction: Not Applicable (03/02/2016 22:00:Charu Barraza RN) Records Available: Yes (03/02/2016 22:00:Charu Barraza RN) General Admission Information: Reviewed; Updated; Confirmed (03/02/2016 22:00:Charu Barraza RN) General Admission Reviewed By: Guero Barraza RN (03/02/2016 22:00:Charu Barraza RN) BELONGINGS/ADVANCED DIRECTIVES Other Belongings: see [facility] belongings form (03/02/2016 22:00:Charu Barraza RN) Advance Direct for Healthcare: No, and Wants No Information (03/02/2016 22:00:Charu Barraza RN) Durable Power of Furniture Associate: No (03/02/2016 22:00:Charu Barraza RN) Living Will: No (03/02/2016 22:00:Charu Barraza RN) Organ Donor: Yes (03/02/2016 22:00:Charu Barraza RN) Pt Rights Information Given: Yes (03/02/2016 22:00:Charu Barraza RN) Pt Understands Pt Rights: Yes (03/02/2016 22:00:Charu Barraza RN) LEARNING ASSESSMENT Knowledge Level: Understands L_D Process (03/02/2016 22:00:Charu Barraza RN) Barriers to Learning: Emotional State; Pain (03/02/2016 22:00:Charu Barraza RN) Learning Readiness: Unable to Participate (03/02/2016 22:00:Charu Barraza RN) Learning Needs: Labor and Delivery Process; Pain Management; Symptoms to Report; Treatment Plan; Medication; Diagnosis; Nutrition; Equipment; Infant Care (03/02/2016 22:00:Charu Barraza RN) DOMESTIC VIOLANCE SCREENING Reason Unable to Complete Screen: No Opportunity to Talk Privately (03/02/2016 22:00:Charu Barraza RN) NUTRITIONAL/FUNCTIONAL SCREENING Problem with Appetite >5 Days: No (03/02/2016 22:00:Charu Barraza RN) Chew/Swallow Difficulties: No (03/02/2016 22:00:Charu Barraza RN) Inappropriate Wt Gain/Loss: No (03/02/2016 22:00:Charu Barraza RN) Presence Skin Breakdown/Ulcer: No (03/02/2016 22:00:Charu Barraza RN) Special Diet: No (03/02/2016 22:00:Charu Barraza RN) Pt Requests Rn Acls Visit: No (03/02/2016 22:00:Charu Barraza RN) Hx of Any of the Following?: N/A (03/02/2016 22:00:Charu Barraza RN) New Diagnosis of: N/A (03/02/2016 22:00:Charu Barraza RN) Requires Assist w/Ambulation: No (03/02/2016 22:00:Charu Barraza RN) Uses Assist Device to Ambulate: No (03/02/2016 22:00:Charu Barraza RN) Pt Requires Help w/ADL's: No (03/02/2016 22:00:Charu Barraza RN)
--- NOTE | 2016-03-08 06:23 | L&D Current Admission ---
Current Admit Datetime Report Generated by CPN: 03/08/2016 06:00 ADMISSION INFORMATION Current Admit Date/Time: 03/03/2016 00:08 (03/02/2016 22:00:Charu Barraza RN) Reason for Admission: Onset of Labor (03/02/2016 22:00:Charu Barraza RN) Chief Complaint: Contractions (03/02/2016 22:00:Charu Barraza RN) Medications During : Ferrous Sulfate (Iron) (03/02/2016 22:00:Charu Barraza RN) Meds During -Oth: diclegis, iron, vit b/vit c (03/02/2016 22:00:Charu Barraza RN) EGA per Dates: 40.4 (03/02/2016 22:00:QS system process) Method of Arrival: Wheelchair (03/02/2016 22:00:Charu Barraza RN) Admitted From: Home (03/02/2016 22:00:Charu Barraza RN) Reason for Induction: Not Applicable (03/02/2016 22:00:Charu Barraza RN) Records Available: Yes (03/02/2016 22:00:Charu Barraza RN) General Admission Information: Reviewed; Updated; Confirmed (03/02/2016 22:00:Charu Barraza RN) General Admission Reviewed By: Guero Barraza RN (03/02/2016 22:00:Charu Barraza RN) BELONGINGS/ADVANCED DIRECTIVES Other Belongings: see [facility] belongings form (03/02/2016 22:00:Charu Barraza RN) Advance Direct for Healthcare: No, and Wants No Information (03/02/2016 22:00:Charu Barraza RN) Durable Power of Treatment Plant Mechanic: No (03/02/2016 22:00:Charu Barraza RN) Living Will: No (03/02/2016 22:00:Charu Barraza RN) Organ Donor: Yes (03/02/2016 22:00:Charu Barraza RN) Pt Rights Information Given: Yes (03/02/2016 22:00:Charu Barraza RN) Pt Understands Pt Rights: Yes (03/02/2016 22:00:Charu Barraza RN) LEARNING ASSESSMENT Knowledge Level: Understands L_D Process (03/02/2016 22:00:Charu Barraza RN) Barriers to Learning: Emotional State; Pain (03/02/2016 22:00:Charu Barraza RN) Learning Readiness: Unable to Participate (03/02/2016 22:00:Charu Barraza RN) Learning Needs: Labor and Delivery Process; Pain Management; Symptoms to Report; Treatment Plan; Medication; Diagnosis; Nutrition; Equipment; Infant Care (03/02/2016 22:00:Charu Barraza RN) DOMESTIC VIOLANCE SCREENING Reason Unable to Complete Screen: No Opportunity to Talk Privately (03/02/2016 22:00:Charu Barraza RN) NUTRITIONAL/FUNCTIONAL SCREENING Problem with Appetite >5 Days: No (03/02/2016 22:00:Charu Barraza RN) Chew/Swallow Difficulties: No (03/02/2016 22:00:Charu Barraza RN) Inappropriate Wt Gain/Loss: No (03/02/2016 22:00:Charu Barraza RN) Presence Skin Breakdown/Ulcer: No (03/02/2016 22:00:Charu Barraza RN) Special Diet: No (03/02/2016 22:00:Charu Barraza RN) Pt Requests Line Service Attendant Visit: No (03/02/2016 22:00:Charu Barraza RN) Hx of Any of the Following?: N/A (03/02/2016 22:00:Charu Barraza RN) New Diagnosis of: N/A (03/02/2016 22:00:Charu Barraza RN) Requires Assist w/Ambulation: No (03/02/2016 22:00:Charu Barraza RN) Uses Assist Device to Ambulate: No (03/02/2016 22:00:Charu Barraza RN) Pt Requires Help w/ADL's: No (03/02/2016 22:00:Charu Barraza RN)
--- NOTE | 2016-03-08 06:23 | L&D General Admission ---
General Admit Datetime Report Generated by CPN: 03/08/2016 06:00 INFORMATION Patient Age: 30 (02/15/2016 10:59:QS system process) EDC: 02/28/2016 00:00 (02/15/2016 11:02:Maryanne Lindsey RN) : 3 (02/15/2016 11:02:Maryanne Lindsey RN) Para: 1 (02/25/2016 21:30:Maryanne Lindsey RN) Baby, Number in Womb: 1 (02/25/2016 21:30:Maryanne Lindsey RN) CARE Primary Field Trainer: [facility] (02/15/2016 11:02:Maryanne Lindsey RN) Month of 1st Visit: September 2015 (02/15/2016 11:02:Maryanne Lindsey RN) Adequate Care: No (02/15/2016 11:02:Maryanne Lindsey RN) Height (in): 64 (03/03/2016 11:45:QS system process) ALLERGIES Medication Allergy: No (02/15/2016 11:02:Maryanne Lindsey RN) Medication Allergies: No Known Allergies (03/02/2016) (03/02/2016 21:37:QS system process) Latex Allergy: No Latex Allergies (02/15/2016 11:02:Maryanne Lindsey RN) COMMUNICATION Primary Language: Ivorian (02/15/2016 11:02:Maryanne Lindsey RN) Medical Tx Preferred Language: Ivorian (02/15/2016 11:02:Charu Barraza RN) Ivorian Communication Ability: Speaks Ivorian; Reads Ivorian (02/15/2016 11:02:Belkis Hdez RN) Communication Barrier(s): None (02/15/2016 11:02:Belkis Hdez RN) DEMOGRAPHICS Address: [address] [place] [id number] (02/15/2016 10:59:QS system process) Zipcode: [address] (02/15/2016 10:59:QS system process) Home (02/15/2016 10:59:QS system process) SSN: [id number] (02/15/2016 10:59:QS system process) Next of Kin Name: ADAM CALLEJAS (02/15/2016 10:59:QS system process) Next of Kin (02/15/2016 10:59:QS system process) Next of Kin Relationship: MO (02/15/2016 10:59:QS system process) Date of : 1985 (02/15/2016 10:59:QS system process) Marital Status: Legally (02/15/2016 10:59:QS system process) Sex: Female (02/15/2016 10:59:QS system process) Race: (02/15/2016 10:59:QS system process) Ethnicity: Non- or (02/15/2016 10:59:QS system process) Yarsani: None (02/15/2016 10:59:QS system process) FOB Involved: No (02/15/2016 11:02:Charu Barraza RN) DRUG AND ALCOHOL USE Alcohol: No (02/15/2016 11:02:Charu Barraza RN) Cigarettes: Current Everyday Smoker. [id number] (02/15/2016 11:02:Charu Barraza RN) Cigarette Comments: 1/2 ppd (02/15/2016 11:02:Charu Barraza RN) Marijuana: No (02/15/2016 11:02:Charu Barraza RN) Cocaine: No (02/15/2016 11:02:Charu Barraza RN) Other Illicit Drugs: No (02/15/2016 11:02:Charu Barraza RN) VACCINE HISTORY Influenza Vaccine: No (02/15/2016 11:02:Charu Barraza RN) Pneumococcal Vaccine: No (02/15/2016 11:02:Charu Barraza RN) Tetanus Vaccine: Yes (02/15/2016 11:02:Charu Barraza RN) Tdap Vaccine: Yes (02/15/2016 11:02:Charu Barraza RN) Hepatitis B Vaccine: Yes (02/15/2016 11:02:Charu Barraza RN) Tank Systems Maintainer: [facility] (02/15/2016 11:02:Belkis Hdez RN) Feeding Preference: Breast (02/15/2016 11:02:Charu Barraza RN) Benefit of Breast Feed Discussed: Yes (02/15/2016 11:02:Charu Barraza RN) Circumcision: Yes (02/15/2016 11:02:Charu Barraza RN) Tubal Authorization Signed: N/A (02/15/2016 11:02:Charu Barraza RN) Consent: N/A (02/15/2016 11:02:Charu Barraza RN) Consent Signed: N/A (02/15/2016 11:02:Charu Barraza RN) Pain Management Plans: Medications; Epidural (02/15/2016 11:02:Charu Barraza RN) Plans for Labor and Delivery: None (02/15/2016 11:02:Belkis Hdez RN) Support Person: Tamica Steele (02/15/2016 11:02:Charu Barraza RN) Support Person Relationship: Mother (02/15/2016 11:02:Charu Barraza RN) Cultural/Spritual Practice: No (02/15/2016 11:02:Charu Barraza RN) Spir/Cult Dietary Needs: No (02/15/2016 11:02:Charu Barraza RN) LIVING SITUATION/DISCHARGE PLAN Living Arrangements: House (02/15/2016 11:02:Charu Barraza RN) Adequate Access to:: Electric; Heat; Refrigeration; Plumbing/Running water; Phone; Transportation (02/15/2016 11:02:Charu Barraza RN) WIC Program: Yes (02/15/2016 11:02:Charu Barraza RN) Discharge Fiberglass Insulation Installer Person: Tamica Steele (02/15/2016 11:02:Charu Barraza RN) Person to Help after Discharge: Tamica Steele (02/15/2016 11:02:Charu Barraza RN) Currently Using Commun Resources: Yes (02/15/2016 11:02:Charu Barraza RN) Specify Current Resource Used: medicaid (02/15/2016 11:02:Charu Barraza RN) Car Seat for Discharge: Yes (02/15/2016 11:02:Charu Barraza RN) Adoption Requested: No (02/15/2016 11:02:Charu Barraza RN) Pt Contact w/infant Post : N/A (02/15/2016 11:02:Charu Barraza RN) LABS Blood Type: A Positive (02/15/2016 11:02:Maryanne Lindsey RN) Antibody Screen: Negative (02/15/2016 11:02:Karime Henson RN) Rho(G) this : Not Applicable (02/15/2016 11:02:Karime Henson RN) Hemoglobin: 9.9 L (03/04/2016 07:06:QS system process) Hematocrit: 30.7 L (03/04/2016 07:06:QS system process) MCV: 91 (03/04/2016 07:06:QS system process) Group Beta Strep: Negative (02/15/2016 11:02:Karime Henson RN) Gonorrhea: Negative (02/15/2016 11:02:Maryanne Lindsey RN) Chlamydia: Negative (02/15/2016 11:02:Maryanne Lindsey RN) RPR/VDRL: Nonreactive (02/15/2016 11:02:Maryanne Lindsey RN) Hepatitis B: Negative (02/15/2016 11:02:Maryanne Lindsey RN) Rubella: Immune (02/15/2016 11:02:Maryanne Lindsey RN) OB/PREVIOUS HISTORY Previous Procedures: Ultrasound; NST (02/15/2016 11:02:Belkis Hdez RN) Current Procedures: Ultrasound; NST (02/15/2016 11:02:Belkis Hdez RN) History of Previous : No (02/15/2016 11:02:Charu Barraza RN) History of Gestational Diabetes: No (02/15/2016 11:02:Charu Barraza RN) History of PIH: No (02/15/2016 11:02:Charu Barraza RN) History of Incompetent Cervix: No (02/15/2016 11:02:Charu Barraza RN) History of Placenta Previa/Abrup: No (02/15/2016 11:02:Charu Barraza RN) History of Macrosomia: No (02/15/2016 11:02:Charu Barraza RN) History of IUGR: No (02/15/2016 11:02:Charu Barraza RN) History of Hemorrhage: No (02/15/2016 11:02:Charu Barraza RN) History of Loss/Stillborn: No (02/15/2016 11:02:Charu Barraza RN) History of : No (02/15/2016 11:02:Charu Barraza RN) History of D (Rh) Sensitization: No (02/15/2016 11:02:Charu Barraza RN) History Recurrent Loss/Stillborn: No (02/15/2016 11:02:Charu Barraza RN) History Depression/PP Depression: Yes (02/15/2016 11:02:Charu Barraza RN) History of Uterine Anomaly/KATHY: No (02/15/2016 11:02:Charu Barraza RN) History of Infertility: No (02/15/2016 11:02:Charu Barraza RN) History of ART Treatment: No (02/15/2016 11:02:Charu Barraza RN) History of KATHY: No (02/15/2016 11:02:Charu Barraza RN) Comments Obstetrical History: G1: 2008 G2: SAB 2009 G3: Current, late entry to care 20 wk 6 d (02/15/2016 11:02:Charu Barraza RN) MEDICAL HISTORY Med Hx Diabetes: No (02/15/2016 11:02:Charu Barraza RN) Med Hx Hypertension: No (02/15/2016 11:02:Charu Barraza RN) Med Hx Heart Disease: No (02/15/2016 11:02:Charu Barraza RN) Med Hx Autoimmune Disorder: No (02/15/2016 11:02:Charu Barraza RN) Med Hx Kidney Disease/UTI: No (02/15/2016 11:02:Charu Barraza RN) Med Hx Neurologic/Epilepsy: No (02/15/2016 11:02:Charu Barraza RN) Med Hx Psychiatric Disorders: No (02/15/2016 11:02:Charu Barraza RN) Med Hx Hepatitis/Liver Disease: No (02/15/2016 11:02:Charu Barraza RN) Med Hx Varicosities/Phlebitis: No (02/15/2016 11:02:Charu Barraza RN) Med Hx Thyroid Dysfunction: No (02/15/2016 11:02:Charu Barraza RN) Med Hx Trauma/Violence: No (02/15/2016 11:02:Charu Barraza RN) Med Hx Blood Transfusion: No (02/15/2016 11:02:Charu Barraza RN) Med Hx Pulmonary (Asthma,TB): No (02/15/2016 11:02:Charu Barraza RN) Med Hx Breast: No (02/15/2016 11:02:Charu Barraza RN) Med Hx ELECTRICAL APPLIANCE REPAIRER Surgery: No (02/15/2016 11:02:Charu Barraza RN) Med Hx Hospitalization/Surgery: Yes (02/15/2016 11:02:Charu Barraza RN) Med Hx Anesthetic Complications: No (02/15/2016 11:02:Charu Barraza RN) Med Hx Abnormal Pap Smear: Yes (02/15/2016 11:02:Charu Barraza RN) Other Medical Diseases: No (02/15/2016 11:02:Charu Barraza RN) Med Hx Significant Family Hx: No (02/15/2016 11:02:Charu Barraza RN) Details of Med/Surg Hx: LGSIL pap; appy 2013; depression/anxiety, with meds in past (02/15/2016 11:02:Charu Barraza RN) INFECTIOUS HISTORY Inf Hx Gonorrhea: No (02/15/2016 11:02:Charu Barraza RN) Inf Hx Chlamydia: No (02/15/2016 11:02:Charu Barraza RN) Inf Hx Syphilis: No (02/15/2016 11:02:Charu Barraza RN) Inf Hx HIV/AIDS: No (02/15/2016 11:02:Charu Barraza RN) Inf Hx Human Papilloma Virus: No (02/15/2016 11:02:Charu Barraza RN) Inf Hx Pt/Partner Genital Herpes: No (02/15/2016 11:02:Charu Barraza RN) Inf Hx Tuberculosis/Exposure: No (02/15/2016 11:02:Charu Barraza RN) Inf Hx Hepatitis B,C: No (02/15/2016 11:02:Charu Barraza RN) Inf Hx Rash or Viral Illness: No (02/15/2016 11:02:Charu Barraza RN) GENETIC HISTORY Gen Hx Age >=35 at ROXIE: No (02/15/2016 11:02:Charu Barraza RN) Gen Hx Thalassemia: No (02/15/2016 11:02:Charu Barraza RN) Gen Hx Congenital Heart Defect: No (02/15/2016 11:02:Charu Barraza RN) Gen Hx Neural Tube Defect: No (02/15/2016 11:02:Charu Barraza RN) Gen Hx Down's Syndrome: No (02/15/2016 11:02:Charu Barraza RN) Gen Hx Gamaliel-Sachs: No (02/15/2016 11:02:Charu Barraza RN) Gen Hx Aura: No (02/15/2016 11:02:Charu Barraza RN) Gen Hx Familial Dysautonomia: No (02/15/2016 11:02:Charu Barraza RN) Gen Hx Sickle Cell Disease/Trait: No (02/15/2016 11:02:Charu Barraza RN) Gen Hx Hemophilia/Blood Disorder: No (02/15/2016 11:02:Charu Barraza RN) Gen Hx Muscular Dystrophy: No (02/15/2016 11:02:Charu Barraza RN) Gen Hx Cystic Fibrosis: No (02/15/2016 11:02:Charu Barraza RN) Gen Hx Huntingtons Chorea: No (02/15/2016 11:02:Charu Barraza RN) Gen Hx Mental Retardation/Autism: No (02/15/2016 11:02:Charu Barraza RN) Gen Hx Tested for Fragile X: No (02/15/2016 11:02:Charu Barraza RN) Gen Hx Other Inher/Chromosomal: No (02/15/2016 11:02:Charu Barraza RN) Gen Hx Maternal Metabolic DO: No (02/15/2016 11:02:Charu Barraza RN) Gen Hx Pt Father or FOB Defect: No (02/15/2016 11:02:Charu Barraza RN) Gen Hx Other Genetic History: No (02/15/2016 11:02:Charu Barraza RN) Gen Hx Drugs/Meds since LMP: Yes (02/15/2016 11:02:Charu Barraza RN) Gen Hx Medications: diclegis, iron, vit b/ vit c (02/15/2016 11:02:Charu Barraza RN)
--- NOTE | 2016-03-09 06:22 | L&D General Admission ---
General Admit Datetime Report Generated by CPN: 03/09/2016 06:00 INFORMATION Patient Age: 30 (02/15/2016 10:59:QS system process) EDC: 02/28/2016 00:00 (02/15/2016 11:02:Maryanne Lindsey RN) : 3 (02/15/2016 11:02:Maryanne Lindsey RN) Para: 1 (02/25/2016 21:30:Maryanne Lindsey RN) Baby, Number in Womb: 1 (02/25/2016 21:30:Maryanne Lindsey RN) CARE Primary Fire Pot Operator: [facility] (02/15/2016 11:02:Maryanne Lindsey RN) Month of 1st Visit: September 2015 (02/15/2016 11:02:Maryanne Lindsey RN) Adequate Care: No (02/15/2016 11:02:Maryanne Lindsey RN) Height (in): 64 (03/03/2016 11:45:QS system process) ALLERGIES Medication Allergy: No (02/15/2016 11:02:Maryanne Lindsey RN) Medication Allergies: No Known Allergies (03/02/2016) (03/02/2016 21:37:QS system process) Latex Allergy: No Latex Allergies (02/15/2016 11:02:Maryanne Lindsey RN) COMMUNICATION Primary Language: Monegasque (02/15/2016 11:02:Maryanne Lindsey RN) Medical Tx Preferred Language: Monegasque (02/15/2016 11:02:Charu Barraza RN) Monegasque Communication Ability: Speaks Monegasque; Reads Monegasque (02/15/2016 11:02:Belkis Hdze RN) Communication Barrier(s): None (02/15/2016 11:02:Belkis Hdez RN) DEMOGRAPHICS Address: [address] [place] [id number] (02/15/2016 10:59:QS system process) Zipcode: [address] (02/15/2016 10:59:QS system process) Home (02/15/2016 10:59:QS system process) SSN: [id number] (02/15/2016 10:59:QS system process) Next of Kin Name: ADAM CALLEJAS (02/15/2016 10:59:QS system process) Next of Kin (02/15/2016 10:59:QS system process) Next of Kin Relationship: [place] (02/15/2016 10:59:QS system process) Date of : 1985 (02/15/2016 10:59:QS system process) Marital Status: Legally (02/15/2016 10:59:QS system process) Sex: Female (02/15/2016 10:59:QS system process) Race: (02/15/2016 10:59:QS system process) Ethnicity: Non- or (02/15/2016 10:59:QS system process) Cheondoism: None (02/15/2016 10:59:QS system process) FOB Involved: No (02/15/2016 11:02:Charu Barraza RN) DRUG AND ALCOHOL USE Alcohol: No (02/15/2016 11:02:Charu Barraza RN) Cigarettes: Current Everyday Smoker. [id number] (02/15/2016 11:02:Charu Barraza RN) Cigarette Comments: 1/2 ppd (02/15/2016 11:02:Charu Barraza RN) Marijuana: No (02/15/2016 11:02:Charu Barraza RN) Cocaine: No (02/15/2016 11:02:Charu Barraza RN) Other Illicit Drugs: No (02/15/2016 11:02:Charu Barraza RN) VACCINE HISTORY Influenza Vaccine: No (02/15/2016 11:02:Charu Barraza RN) Pneumococcal Vaccine: No (02/15/2016 11:02:Charu Barraza RN) Tetanus Vaccine: Yes (02/15/2016 11:02:Charu Barraza RN) Tdap Vaccine: Yes (02/15/2016 11:02:Charu Barraza RN) Hepatitis B Vaccine: Yes (02/15/2016 11:02:Charu Barraza RN) Structural Engineering Technician: [facility] (02/15/2016 11:02:Belkis Hdez RN) Feeding Preference: Breast (02/15/2016 11:02:Charu Barraza RN) Benefit of Breast Feed Discussed: Yes (02/15/2016 11:02:Charu Barraza RN) Circumcision: Yes (02/15/2016 11:02:Charu Barraza RN) Tubal Authorization Signed: N/A (02/15/2016 11:02:Charu Barraza RN) Consent: N/A (02/15/2016 11:02:Charu Barraza RN) Consent Signed: N/A (02/15/2016 11:02:Charu Barraza RN) Pain Management Plans: Medications; Epidural (02/15/2016 11:02:Charu Barraza RN) Plans for Labor and Delivery: None (02/15/2016 11:02:Belkis Hdez RN) Support Person: Tamica Steele (02/15/2016 11:02:Chaur Barraza RN) Support Person Relationship: Mother (02/15/2016 11:02:Charu Barraza RN) Cultural/Spritual Practice: No (02/15/2016 11:02:Charu Barraza RN) Spir/Cult Dietary Needs: No (02/15/2016 11:02:Charu Barraza RN) LIVING SITUATION/DISCHARGE PLAN Living Arrangements: House (02/15/2016 11:02:Charu Barraza RN) Adequate Access to:: Electric; Heat; Refrigeration; Plumbing/Running water; Phone; Transportation (02/15/2016 11:02:Charu Barraza RN) WIC Program: Yes (02/15/2016 11:02:Charu Barraza RN) Discharge Coin Machine Collector Supervisor Person: Tamica Steele (02/15/2016 11:02:Charu Barraza RN) Person to Help after Discharge: Tamica Steele (02/15/2016 11:02:Charu Barraza RN) Currently Using Commun Resources: Yes (02/15/2016 11:02:Charu Barraza RN) Specify Current Resource Used: medicaid (02/15/2016 11:02:Charu Barraza RN) Car Seat for Discharge: Yes (02/15/2016 11:02:Charu Barraza RN) Adoption Requested: No (02/15/2016 11:02:Charu Barraza RN) Pt Contact w/infant Post : N/A (02/15/2016 11:02:Charu Barraza RN) LABS Blood Type: A Positive (02/15/2016 11:02:Maryanne Lindsey RN) Antibody Screen: Negative (02/15/2016 11:02:Karime Henson RN) Rho(G) this : Not Applicable (02/15/2016 11:02:Karime Henson RN) Hemoglobin: 9.9 L (03/04/2016 07:06:QS system process) Hematocrit: 30.7 L (03/04/2016 07:06:QS system process) MCV: 91 (03/04/2016 07:06:QS system process) Group Beta Strep: Negative (02/15/2016 11:02:Karime Henson RN) Gonorrhea: Negative (02/15/2016 11:02:Maryanne Lindsey RN) Chlamydia: Negative (02/15/2016 11:02:Maryanne Lindsey RN) RPR/VDRL: Nonreactive (02/15/2016 11:02:Maryanne Lindsey RN) Hepatitis B: Negative (02/15/2016 11:02:Maryanne Lindsey RN) Rubella: Immune (02/15/2016 11:02:Maryanne Lindsey RN) OB/PREVIOUS HISTORY Previous Procedures: Ultrasound; NST (02/15/2016 11:02:Belkis Hdez RN) Current Procedures: Ultrasound; NST (02/15/2016 11:02:Belkis Hdez RN) History of Previous : No (02/15/2016 11:02:Charu Barraza RN) History of Gestational Diabetes: No (02/15/2016 11:02:Charu Barraza RN) History of PIH: No (02/15/2016 11:02:Charu Barraza RN) History of Incompetent Cervix: No (02/15/2016 11:02:Charu Barraza RN) History of Placenta Previa/Abrup: No (02/15/2016 11:02:Charu Barraza RN) History of Macrosomia: No (02/15/2016 11:02:Charu Barraza RN) History of IUGR: No (02/15/2016 11:02:Charu Barraza RN) History of Hemorrhage: No (02/15/2016 11:02:Charu Barraza RN) History of Loss/Stillborn: No (02/15/2016 11:02:Charu Barraza RN) History of : No (02/15/2016 11:02:Charu Barraza RN) History of D (Rh) Sensitization: No (02/15/2016 11:02:Charu Barraza RN) History Recurrent Loss/Stillborn: No (02/15/2016 11:02:Charu Barraza RN) History Depression/PP Depression: Yes (02/15/2016 11:02:Charu Barraza RN) History of Uterine Anomaly/KATHY: No (02/15/2016 11:02:Charu Barraza RN) History of Infertility: No (02/15/2016 11:02:Charu Barraza RN) History of ART Treatment: No (02/15/2016 11:02:Charu Barraza RN) History of KATHY: No (02/15/2016 11:02:Charu Barraza RN) Comments Obstetrical History: G1: 2008 G2: SAB 2009 G3: Current, late entry to care 20 wk 6 d (02/15/2016 11:02:Charu Barraza RN) MEDICAL HISTORY Med Hx Diabetes: No (02/15/2016 11:02:Charu Barraza RN) Med Hx Hypertension: No (02/15/2016 11:02:Charu Barraza RN) Med Hx Heart Disease: No (02/15/2016 11:02:Charu Barraza RN) Med Hx Autoimmune Disorder: No (02/15/2016 11:02:Charu Barraza RN) Med Hx Kidney Disease/UTI: No (02/15/2016 11:02:Charu Barraza RN) Med Hx Neurologic/Epilepsy: No (02/15/2016 11:02:Charu Barraza RN) Med Hx Psychiatric Disorders: No (02/15/2016 11:02:Charu Barraza RN) Med Hx Hepatitis/Liver Disease: No (02/15/2016 11:02:Charu Barraza RN) Med Hx Varicosities/Phlebitis: No (02/15/2016 11:02:Charu Barraza RN) Med Hx Thyroid Dysfunction: No (02/15/2016 11:02:Charu Barraza RN) Med Hx Trauma/Violence: No (02/15/2016 11:02:Charu Barraza RN) Med Hx Blood Transfusion: No (02/15/2016 11:02:Charu Barraza RN) Med Hx Pulmonary (Asthma,TB): No (02/15/2016 11:02:Charu Barraza RN) Med Hx Breast: No (02/15/2016 11:02:Charu Barraza RN) Med Hx [place] MASTER Surgery: No (02/15/2016 11:02:Charu Barraza RN) Med Hx Hospitalization/Surgery: Yes (02/15/2016 11:02:Charu Barraza RN) Med Hx Anesthetic Complications: No (02/15/2016 11:02:Charu Barraza RN) Med Hx Abnormal Pap Smear: Yes (02/15/2016 11:02:Charu Barraza RN) Other Medical Diseases: No (02/15/2016 11:02:Charu Barraza RN) Med Hx Significant Family Hx: No (02/15/2016 11:02:Charu Barraza RN) Details of Med/Surg Hx: LGSIL pap; appy 2013; depression/anxiety, with meds in past (02/15/2016 11:02:Charu Barraza RN) INFECTIOUS HISTORY Inf Hx Gonorrhea: No (02/15/2016 11:02:Charu Barraza RN) Inf Hx Chlamydia: No (02/15/2016 11:02:Charu Barraza RN) Inf Hx Syphilis: No (02/15/2016 11:02:Charu Barraza RN) Inf Hx HIV/AIDS: No (02/15/2016 11:02:Charu Barraza RN) Inf Hx Human Papilloma Virus: No (02/15/2016 11:02:Charu Barraza RN) Inf Hx Pt/Partner Genital Herpes: No (02/15/2016 11:02:Charu Barraza RN) Inf Hx Tuberculosis/Exposure: No (02/15/2016 11:02:Charu Barraza RN) Inf Hx Hepatitis B,C: No (02/15/2016 11:02:Charu Barraza RN) Inf Hx Rash or Viral Illness: No (02/15/2016 11:02:Charu Barraza RN) GENETIC HISTORY Gen Hx Age >=35 at ROXIE: No (02/15/2016 11:02:Charu Barraza RN) Gen Hx Thalassemia: No (02/15/2016 11:02:Charu Barraza RN) Gen Hx Congenital Heart Defect: No (02/15/2016 11:02:Charu Barraza RN) Gen Hx Neural Tube Defect: No (02/15/2016 11:02:Charu Barraza RN) Gen Hx Down's Syndrome: No (02/15/2016 11:02:Charu Barraza RN) Gen Hx Gamaliel-Sachs: No (02/15/2016 11:02:Charu Barraza RN) Gen Hx Aura: No (02/15/2016 11:02:Charu Barraza RN) Gen Hx Familial Dysautonomia: No (02/15/2016 11:02:Charu Barraza RN) Gen Hx Sickle Cell Disease/Trait: No (02/15/2016 11:02:Charu Barraza RN) Gen Hx Hemophilia/Blood Disorder: No (02/15/2016 11:02:Charu Barraza RN) Gen Hx Muscular Dystrophy: No (02/15/2016 11:02:Charu Barraza RN) Gen Hx Cystic Fibrosis: No (02/15/2016 11:02:Charu Barraza RN) Gen Hx Huntingtons Chorea: No (02/15/2016 11:02:Charu Barraza RN) Gen Hx Mental Retardation/Autism: No (02/15/2016 11:02:Charu Barraza RN) Gen Hx Tested for Fragile X: No (02/15/2016 11:02:Charu Barraza RN) Gen Hx Other Inher/Chromosomal: No (02/15/2016 11:02:Charu Barraza RN) Gen Hx Maternal Metabolic DO: No (02/15/2016 11:02:Charu Barraza RN) Gen Hx Pt Father or FOB Defect: No (02/15/2016 11:02:Charu Barraza RN) Gen Hx Other Genetic History: No (02/15/2016 11:02:Charu Barraza RN) Gen Hx Drugs/Meds since LMP: Yes (02/15/2016 11:02:Charu Barraza RN) Gen Hx Medications: diclegis, iron, vit b/ vit c (02/15/2016 11:02:Charu Barraza RN)
--- NOTE | 2016-03-09 06:22 | L&D Current Admission ---
Current Admit Datetime Report Generated by CPN: 03/09/2016 06:00 ADMISSION INFORMATION Current Admit Date/Time: 03/03/2016 00:08 (03/02/2016 22:00:Charu Barraza RN) Reason for Admission: Onset of Labor (03/02/2016 22:00:Charu Barraza RN) Chief Complaint: Contractions (03/02/2016 22:00:Chaur Barraza RN) Medications During : Ferrous Sulfate (Iron) (03/02/2016 22:00:Charu Barraza RN) Meds During -Oth: diclegis, iron, vit b/vit c (03/02/2016 22:00:Charu Barraza RN) EGA per Dates: 40.4 (03/02/2016 22:00:QS system process) Method of Arrival: Wheelchair (03/02/2016 22:00:Charu Barraza RN) Admitted From: Home (03/02/2016 22:00:Charu Barraza RN) Reason for Induction: Not Applicable (03/02/2016 22:00:Charu Barraza RN) Records Available: Yes (03/02/2016 22:00:Charu Barraza RN) General Admission Information: Reviewed; Updated; Confirmed (03/02/2016 22:00:Charu Barraza RN) General Admission Reviewed By: Guero Barraza RN (03/02/2016 22:00:Charu Barraza RN) BELONGINGS/ADVANCED DIRECTIVES Other Belongings: see [facility] belongings form (03/02/2016 22:00:Charu Barraza RN) Advance Direct for Healthcare: No, and Wants No Information (03/02/2016 22:00:Charu Barraza RN) Durable Power of Accounts Payable Processor: No (03/02/2016 22:00:Charu Barraza RN) Living Will: No (03/02/2016 22:00:Charu Barraza RN) Organ Donor: Yes (03/02/2016 22:00:Charu Barraza RN) Pt Rights Information Given: Yes (03/02/2016 22:00:Charu Barraza RN) Pt Understands Pt Rights: Yes (03/02/2016 22:00:Charu Barraza RN) LEARNING ASSESSMENT Knowledge Level: Understands L_D Process (03/02/2016 22:00:Charu Barraza RN) Barriers to Learning: Emotional State; Pain (03/02/2016 22:00:Charu Barraza RN) Learning Readiness: Unable to Participate (03/02/2016 22:00:Charu Barraza RN) Learning Needs: Labor and Delivery Process; Pain Management; Symptoms to Report; Treatment Plan; Medication; Diagnosis; Nutrition; Equipment; Infant Care (03/02/2016 22:00:Charu Barraza RN) DOMESTIC VIOLANCE SCREENING Reason Unable to Complete Screen: No Opportunity to Talk Privately (03/02/2016 22:00:Charu Barraza RN) NUTRITIONAL/FUNCTIONAL SCREENING Problem with Appetite >5 Days: No (03/02/2016 22:00:Charu Barraza RN) Chew/Swallow Difficulties: No (03/02/2016 22:00:Charu Barraza RN) Inappropriate Wt Gain/Loss: No (03/02/2016 22:00:Charu Barraza RN) Presence Skin Breakdown/Ulcer: No (03/02/2016 22:00:Charu Barraza RN) Special Diet: No (03/02/2016 22:00:Charu Barraza RN) Pt Requests Surgery Manager Visit: No (03/02/2016 22:00:Charu Barraza RN) Hx of Any of the Following?: N/A (03/02/2016 22:00:Charu Barraza RN) New Diagnosis of: N/A (03/02/2016 22:00:Charu Barraza RN) Requires Assist w/Ambulation: No (03/02/2016 22:00:Charu Barraza RN) Uses Assist Device to Ambulate: No (03/02/2016 22:00:Charu Barraza RN) Pt Requires Help w/ADL's: No (03/02/2016 22:00:Charu Barraza RN)
--- NOTE | 2016-03-10 06:21 | L&D General Admission ---
General Admit Datetime Report Generated by CPN: 03/10/2016 06:00 INFORMATION Patient Age: 30 (02/15/2016 10:59:QS system process) EDC: 02/28/2016 00:00 (02/15/2016 11:02:Maryanne Lindsey RN) : 3 (02/15/2016 11:02:Maryanne Lindsey RN) Para: 1 (02/25/2016 21:30:Maryanne Lindsey RN) Baby, Number in Womb: 1 (02/25/2016 21:30:Maryanne Lindsey RN) CARE Primary Ruby On Rails Engineer: [employer] [facility] (02/15/2016 11:02:Maryanne Lindsey RN) Month of 1st Visit: September 2015 (02/15/2016 11:02:Maryanne Lindsey RN) Adequate Care: No (02/15/2016 11:02:Maryanne Lindsey RN) Height (in): 64 (03/03/2016 11:45:QS system process) ALLERGIES Medication Allergy: No (02/15/2016 11:02:Maryanne Lindsey RN) Medication Allergies: No Known Allergies (03/02/2016) (03/02/2016 21:37:QS system process) Latex Allergy: No Latex Allergies (02/15/2016 11:02:Maryanne Lindsey RN) COMMUNICATION Primary Language: Macanese (02/15/2016 11:02:Maryanne Lindsey RN) Medical Tx Preferred Language: Macanese (02/15/2016 11:02:Charu Barraza RN) Macanese Communication Ability: Speaks Macanese; Reads Macanese (02/15/2016 11:02:eBlkis Hdez RN) Communication Barrier(s): None (02/15/2016 11:02:Belkis Hdez RN) DEMOGRAPHICS Address: [address] [id number] (02/15/2016 10:59:QS system process) Zipcode: [address] (02/15/2016 10:59:QS system process) Home (02/15/2016 10:59:QS system process) SSN: [id number] (02/15/2016 10:59:QS system process) Next of Kin Name: ADAM CALLEJAS (02/15/2016 10:59:QS system process) Next of Kin (02/15/2016 10:59:QS system process) Next of Kin Relationship: [place] (02/15/2016 10:59:QS system process) Date of : 1985 (02/15/2016 10:59:QS system process) Marital Status: Legally (02/15/2016 10:59:QS system process) Sex: Female (02/15/2016 10:59:QS system process) Race: (02/15/2016 10:59:QS system process) Ethnicity: Non- or (02/15/2016 10:59:QS system process) Druze: None (02/15/2016 10:59:QS system process) FOB Involved: No (02/15/2016 11:02:Charu Barraza RN) DRUG AND ALCOHOL USE Alcohol: No (02/15/2016 11:02:Charu Barraza RN) Cigarettes: Current Everyday Smoker. [id number] (02/15/2016 11:02:Charu Barraza RN) Cigarette Comments: 1/2 ppd (02/15/2016 11:02:Charu Barraza RN) Marijuana: No (02/15/2016 11:02:Charu Barraza RN) Cocaine: No (02/15/2016 11:02:Charu Barraza RN) Other Illicit Drugs: No (02/15/2016 11:02:Charu Barraza RN) VACCINE HISTORY Influenza Vaccine: No (02/15/2016 11:02:Charu Barraza RN) Pneumococcal Vaccine: No (02/15/2016 11:02:Charu Barraza RN) Tetanus Vaccine: Yes (02/15/2016 11:02:Charu Barraza RN) Tdap Vaccine: Yes (02/15/2016 11:02:Charu Barraza RN) Hepatitis B Vaccine: Yes (02/15/2016 11:02:Charu Barraza RN) Product Owner: [facility] (02/15/2016 11:02:Belkis Hdez RN) Feeding Preference: Breast (02/15/2016 11:02:Charu Barraza RN) Benefit of Breast Feed Discussed: Yes (02/15/2016 11:02:Charu Barraza RN) Circumcision: Yes (02/15/2016 11:02:Charu Barraza RN) Tubal Authorization Signed: N/A (02/15/2016 11:02:Charu Barraza RN) Consent: N/A (02/15/2016 11:02:Charu Barraza RN) Consent Signed: N/A (02/15/2016 11:02:Charu Barraza RN) Pain Management Plans: Medications; Epidural (02/15/2016 11:02:Charu Barraza RN) Plans for Labor and Delivery: None (02/15/2016 11:02:Belkis Hdez RN) Support Person: Tamica Steele (02/15/2016 11:02:Charu Barraza RN) Support Person Relationship: Mother (02/15/2016 11:02:Charu Barraza RN) Cultural/Spritual Practice: No (02/15/2016 11:02:Charu Barraza RN) Spir/Cult Dietary Needs: No (02/15/2016 11:02:Charu Barraza RN) LIVING SITUATION/DISCHARGE PLAN Living Arrangements: House (02/15/2016 11:02:Charu Barraza RN) Adequate Access to:: Electric; Heat; Refrigeration; Plumbing/Running water; Phone; Transportation (02/15/2016 11:02:Charu Barraza RN) WIC Program: Yes (02/15/2016 11:02:Charu Barraza RN) Discharge Harvest Manager Person: Tamica Steele (02/15/2016 11:02:Charu Barraza RN) Person to Help after Discharge: Tamica Steele (02/15/2016 11:02:Charu Barraza RN) Currently Using Commun Resources: Yes (02/15/2016 11:02:Charu Barraza RN) Specify Current Resource Used: medicaid (02/15/2016 11:02:Charu Barraza RN) Car Seat for Discharge: Yes (02/15/2016 11:02:Charu Barraza RN) Adoption Requested: No (02/15/2016 11:02:Charu Barraza RN) Pt Contact w/infant Post : N/A (02/15/2016 11:02:Charu Barraza RN) LABS Blood Type: A Positive (02/15/2016 11:02:Maryanne Lindsey RN) Antibody Screen: Negative (02/15/2016 11:02:Karime Henson RN) Rho(G) this : Not Applicable (02/15/2016 11:02:Karime Henson RN) Hemoglobin: 9.9 L (03/04/2016 07:06:QS system process) Hematocrit: 30.7 L (03/04/2016 07:06:QS system process) MCV: 91 (03/04/2016 07:06:QS system process) Group Beta Strep: Negative (02/15/2016 11:02:Karime Henson RN) Gonorrhea: Negative (02/15/2016 11:02:Maryanne Lindsey RN) Chlamydia: Negative (02/15/2016 11:02:Maryanne Lindsey RN) RPR/VDRL: Nonreactive (02/15/2016 11:02:Maryanne Lindsey RN) Hepatitis B: Negative (02/15/2016 11:02:Maryanne Lindsey RN) Rubella: Immune (02/15/2016 11:02:Maryanne Lindsey RN) OB/PREVIOUS HISTORY Previous Procedures: Ultrasound; NST (02/15/2016 11:02:Belkis Hdez RN) Current Procedures: Ultrasound; NST (02/15/2016 11:02:Belkis Hdez RN) History of Previous : No (02/15/2016 11:02:Charu Barraza RN) History of Gestational Diabetes: No (02/15/2016 11:02:Charu Barraza RN) History of PIH: No (02/15/2016 11:02:Chaur Barraza RN) History of Incompetent Cervix: No (02/15/2016 11:02:Charu Barraza RN) History of Placenta Previa/Abrup: No (02/15/2016 11:02:Charu Barraza RN) History of Macrosomia: No (02/15/2016 11:02:Charu Barraza RN) History of IUGR: No (02/15/2016 11:02:Charu Barraza RN) History of Hemorrhage: No (02/15/2016 11:02:Charu Barraza RN) History of Loss/Stillborn: No (02/15/2016 11:02:Charu Barraza RN) History of : No (02/15/2016 11:02:Charu Barraza RN) History of D (Rh) Sensitization: No (02/15/2016 11:02:Charu Barraza RN) History Recurrent Loss/Stillborn: No (02/15/2016 11:02:Charu Barraza RN) History Depression/PP Depression: Yes (02/15/2016 11:02:Charu Barraza RN) History of Uterine Anomaly/KATHY: No (02/15/2016 11:02:Charu Barraza RN) History of Infertility: No (02/15/2016 11:02:Charu Barraza RN) History of ART Treatment: No (02/15/2016 11:02:Charu Barraza RN) History of KATHY: No (02/15/2016 11:02:Charu Barraza RN) Comments Obstetrical History: G1: 2008 G2: SAB 2009 G3: Current, late entry to care 20 wk 6 d (02/15/2016 11:02:Charu Barraza RN) MEDICAL HISTORY Med Hx Diabetes: No (02/15/2016 11:02:Charu Barraza RN) Med Hx Hypertension: No (02/15/2016 11:02:Charu Barraza RN) Med Hx Heart Disease: No (02/15/2016 11:02:Charu Barraza RN) Med Hx Autoimmune Disorder: No (02/15/2016 11:02:Charu Barraza RN) Med Hx Kidney Disease/UTI: No (02/15/2016 11:02:Charu Barraza RN) Med Hx Neurologic/Epilepsy: No (02/15/2016 11:02:Charu Barraza RN) Med Hx Psychiatric Disorders: No (02/15/2016 11:02:Charu Barraza RN) Med Hx Hepatitis/Liver Disease: No (02/15/2016 11:02:Charu Barraza RN) Med Hx Varicosities/Phlebitis: No (02/15/2016 11:02:Charu Barraza RN) Med Hx Thyroid Dysfunction: No (02/15/2016 11:02:Charu Barraza RN) Med Hx Trauma/Violence: No (02/15/2016 11:02:Charu Barraza RN) Med Hx Blood Transfusion: No (02/15/2016 11:02:Charu Barraza RN) Med Hx Pulmonary (Asthma,TB): No (02/15/2016 11:02:Charu Barraza RN) Med Hx Breast: No (02/15/2016 11:02:Charu Barraza RN) Med Hx GRAIN UNLOADER MACHINE Surgery: No (02/15/2016 11:02:Charu Barraza RN) Med Hx Hospitalization/Surgery: Yes (02/15/2016 11:02:Charu Barraza RN) Med Hx Anesthetic Complications: No (02/15/2016 11:02:Charu Barraza RN) Med Hx Abnormal Pap Smear: Yes (02/15/2016 11:02:Charu Barraza RN) Other Medical Diseases: No (02/15/2016 11:02:Charu Barraza RN) Med Hx Significant Family Hx: No (02/15/2016 11:02:Charu Barraza RN) Details of Med/Surg Hx: LGSIL pap; appy 2013; depression/anxiety, with meds in past (02/15/2016 11:02:Charu Barraza RN) INFECTIOUS HISTORY Inf Hx Gonorrhea: No (02/15/2016 11:02:Charu Barraza RN) Inf Hx Chlamydia: No (02/15/2016 11:02:Charu Barraza RN) Inf Hx Syphilis: No (02/15/2016 11:02:Charu Barraza RN) Inf Hx HIV/AIDS: No (02/15/2016 11:02:Charu Barraza RN) Inf Hx Human Papilloma Virus: No (02/15/2016 11:02:Charu Barraza RN) Inf Hx Pt/Partner Genital Herpes: No (02/15/2016 11:02:Charu Barraza RN) Inf Hx Tuberculosis/Exposure: No (02/15/2016 11:02:Charu Barraza RN) Inf Hx Hepatitis B,C: No (02/15/2016 11:02:Charu Barraza RN) Inf Hx Rash or Viral Illness: No (02/15/2016 11:02:Charu Barraza RN) GENETIC HISTORY Gen Hx Age >=35 at [facility]: No (02/15/2016 11:02:Charu Barraza RN) Gen Hx Thalassemia: No (02/15/2016 11:02:Charu Barraza RN) Gen Hx Congenital Heart Defect: No (02/15/2016 11:02:Charu Barraza RN) Gen Hx Neural Tube Defect: No (02/15/2016 11:02:Charu Barraza RN) Gen Hx Down's Syndrome: No (02/15/2016 11:02:Charu Barraza RN) Gen Hx Gamaliel-Sachs: No (02/15/2016 11:02:Charu Barraza RN) Gen Hx Aura: No (02/15/2016 11:02:Charu Barraza RN) Gen Hx Familial Dysautonomia: No (02/15/2016 11:02:Charu Barraza RN) Gen Hx Sickle Cell Disease/Trait: No (02/15/2016 11:02:Charu Barraza RN) Gen Hx Hemophilia/Blood Disorder: No (02/15/2016 11:02:Charu Barraza RN) Gen Hx Muscular Dystrophy: No (02/15/2016 11:02:Charu Barraza RN) Gen Hx Cystic Fibrosis: No (02/15/2016 11:02:Charu Barraza RN) Gen Hx Huntingtons Chorea: No (02/15/2016 11:02:Charu Barraza RN) Gen Hx Mental Retardation/Autism: No (02/15/2016 11:02:Charu Barraza RN) Gen Hx Tested for Fragile X: No (02/15/2016 11:02:Charu Barraza RN) Gen Hx Other Inher/Chromosomal: No (02/15/2016 11:02:Charu Barraza RN) Gen Hx Maternal Metabolic DO: No (02/15/2016 11:02:Charu Barraza RN) Gen Hx Pt Father or FOB Defect: No (02/15/2016 11:02:Charu Barraza RN) Gen Hx Other Genetic History: No (02/15/2016 11:02:Charu Barraza RN) Gen Hx Drugs/Meds since LMP: Yes (02/15/2016 11:02:Charu Barraza RN) Gen Hx Medications: diclegis, iron, vit b/ vit c (02/15/2016 11:02:Charu Barraza RN)
--- NOTE | 2016-03-10 06:21 | L&D Current Admission ---
Current Admit Datetime Report Generated by CPN: 03/10/2016 06:00 ADMISSION INFORMATION Current Admit Date/Time: 03/03/2016 00:08 (03/02/2016 22:00:Charu Barraza RN) Reason for Admission: Onset of Labor (03/02/2016 22:00:Charu Barraza RN) Chief Complaint: Contractions (03/02/2016 22:00:Charu Barraza RN) Medications During : Ferrous Sulfate (Iron) (03/02/2016 22:00:Charu Barraza RN) Meds During -Oth: diclegis, iron, vit b/vit c (03/02/2016 22:00:Charu Barraza RN) EGA per Dates: 40.4 (03/02/2016 22:00:QS system process) Method of Arrival: Wheelchair (03/02/2016 22:00:Charu Barraza RN) Admitted From: Home (03/02/2016 22:00:Charu Barraza RN) Reason for Induction: Not Applicable (03/02/2016 22:00:Charu Barraza RN) Records Available: Yes (03/02/2016 22:00:Charu Barraza RN) General Admission Information: Reviewed; Updated; Confirmed (03/02/2016 22:00:Charu Barraza RN) General Admission Reviewed By: Guero Barraza RN (03/02/2016 22:00:Charu Barraza RN) BELONGINGS/ADVANCED DIRECTIVES Other Belongings: see [facility] belongings form (03/02/2016 22:00:Charu Barraza RN) Advance Direct for Healthcare: No, and Wants No Information (03/02/2016 22:00:Charu Barraza RN) Durable Power of French Polisher: No (03/02/2016 22:00:Charu Barraza RN) Living Will: No (03/02/2016 22:00:Charu Barraza RN) Organ Donor: Yes (03/02/2016 22:00:Charu Barraza RN) Pt Rights Information Given: Yes (03/02/2016 22:00:Charu Barraza RN) Pt Understands Pt Rights: Yes (03/02/2016 22:00:Charu Barraza RN) LEARNING ASSESSMENT Knowledge Level: Understands L_D Process (03/02/2016 22:00:Charu Barraza RN) Barriers to Learning: Emotional State; Pain (03/02/2016 22:00:Charu Barraza RN) Learning Readiness: Unable to Participate (03/02/2016 22:00:Charu Barraza RN) Learning Needs: Labor and Delivery Process; Pain Management; Symptoms to Report; Treatment Plan; Medication; Diagnosis; Nutrition; Equipment; Infant Care (03/02/2016 22:00:Charu Barraza RN) DOMESTIC VIOLANCE SCREENING Reason Unable to Complete Screen: No Opportunity to Talk Privately (03/02/2016 22:00:Charu Barraza RN) NUTRITIONAL/FUNCTIONAL SCREENING Problem with Appetite >5 Days: No (03/02/2016 22:00:Charu Barraza RN) Chew/Swallow Difficulties: No (03/02/2016 22:00:Charu Barraza RN) Inappropriate Wt Gain/Loss: No (03/02/2016 22:00:Charu Barraza RN) Presence Skin Breakdown/Ulcer: No (03/02/2016 22:00:Charu Barraza RN) Special Diet: No (03/02/2016 22:00:Charu Barraza RN) Pt Requests Apple Picker Visit: No (03/02/2016 22:00:Charu Barraza RN) Hx of Any of the Following?: N/A (03/02/2016 22:00:Charu Barraza RN) New Diagnosis of: N/A (03/02/2016 22:00:Charu Barraza RN) Requires Assist w/Ambulation: No (03/02/2016 22:00:Charu Barraza RN) Uses Assist Device to Ambulate: No (03/02/2016 22:00:Charu Barraza RN) Pt Requires Help w/ADL's: No (03/02/2016 22:00:Charu Barraza RN)
--- NOTE | 2016-03-11 06:22 | L&D General Admission ---
General Admit Datetime Report Generated by CPN: 03/11/2016 06:00 INFORMATION Patient Age: 30 (02/15/2016 10:59:QS system process) EDC: 02/28/2016 00:00 (02/15/2016 11:02:Maryanne Lindsey RN) : 3 (02/15/2016 11:02:Maryanne Lindsey RN) Para: 1 (02/25/2016 21:30:Maryanne Lindsey RN) Baby, Number in Womb: 1 (02/25/2016 21:30:Maryanne Lindsey RN) CARE [facility] Plating Techn[facility]: [facility] (02/15/2016 11:02:Maryanne Lindsey RN) Month of 1st Visit: September 2015 (02/15/2016 11:02:Maryanne Lindsey RN) Adequate Care: No (02/15/2016 11:02:Maryanne Lindsey RN) Height (in): 64 (03/03/2016 11:45:QS system process) ALLERGIES Medication Allergy: No (02/15/2016 11:02:Maryanne Lindsey RN) Medication Allergies: No Known Allergies (03/02/2016) (03/02/2016 21:37:QS system process) Latex Allergy: No Latex Allergies (02/15/2016 11:02:Maryanne Lindsey RN) COMMUNICATION Primary Language: Tanzanian (02/15/2016 11:02:Maryanne Lindsey RN) Medical Tx Preferred Language: Tanzanian (02/15/2016 11:02:Charu Barraza RN) Tanzanian Communication Ability: Speaks Tanzanian; Reads Tanzanian (02/15/2016 11:02:Belkis Hdez RN) Communication Barrier(s): None (02/15/2016 11:02:Belkis Hdez RN) DEMOGRAPHICS Address: [address] [place] [id number] (02/15/2016 10:59:QS system process) Zipcode: [address] (02/15/2016 10:59:QS system process) Home (02/15/2016 10:59:QS system process) SSN: [id number] (02/15/2016 10:59:QS system process) Next of Kin Name: ADAM CALLEJAS (02/15/2016 10:59:QS system process) Next of Kin (02/15/2016 10:59:QS system process) Next of Kin Relationship: MO (02/15/2016 10:59:QS system process) Date of : 1985 (02/15/2016 10:59:QS system process) Marital Status: Legally (02/15/2016 10:59:QS system process) Sex: Female (02/15/2016 10:59:QS system process) Race: (02/15/2016 10:59:QS system process) Ethnicity: Non- or (02/15/2016 10:59:QS system process) Hinduism: None (02/15/2016 10:59:QS system process) FOB Involved: No (02/15/2016 11:02:Charu Barraza RN) DRUG AND ALCOHOL USE Alcohol: No (02/15/2016 11:02:Charu Barraza RN) Cigarettes: Current Everyday Smoker. [id number] (02/15/2016 11:02:Charu Barraza RN) Cigarette Comments: 1/2 ppd (02/15/2016 11:02:Charu Barraza RN) Marijuana: No (02/15/2016 11:02:Charu Barraza RN) Cocaine: No (02/15/2016 11:02:Charu Barraza RN) Other Illicit Drugs: No (02/15/2016 11:02:Charu Barraza RN) VACCINE HISTORY Influenza Vaccine: No (02/15/2016 11:02:Charu Barraza RN) Pneumococcal Vaccine: No (02/15/2016 11:02:Charu Barraza RN) Tetanus Vaccine: Yes (02/15/2016 11:02:Charu Barraza RN) Tdap Vaccine: Yes (02/15/2016 11:02:Charu Barraza RN) Hepatitis B Vaccine: Yes (02/15/2016 11:02:Charu Barraza RN) Grinder Hardboard: [facility] (02/15/2016 11:02:Belkis Hdez RN) Feeding Preference: Breast (02/15/2016 11:02:Charu Barraza RN) Benefit of Breast Feed Discussed: Yes (02/15/2016 11:02:Charu Barraza RN) Circumcision: Yes (02/15/2016 11:02:Charu Barraza RN) Tubal Authorization Signed: N/A (02/15/2016 11:02:Charu Barraza RN) Consent: N/A (02/15/2016 11:02:Charu Barraza RN) Consent Signed: N/A (02/15/2016 11:02:Charu Barraza RN) Pain Management Plans: Medications; Epidural (02/15/2016 11:02:Charu Barraza RN) Plans for Labor and Delivery: None (02/15/2016 11:02:Belkis Hdez RN) Support Person: Tamica Steele (02/15/2016 11:02:Charu Barraza RN) Support Person Relationship: Mother (02/15/2016 11:02:Charu Barraza RN) Cultural/Spritual Practice: No (02/15/2016 11:02:Charu Barraza RN) Spir/Cult Dietary Needs: No (02/15/2016 11:02:Charu Barraza RN) LIVING SITUATION/DISCHARGE PLAN Living Arrangements: House (02/15/2016 11:02:Charu Barraza RN) Adequate Access to:: Electric; Heat; Refrigeration; Plumbing/Running water; Phone; Transportation (02/15/2016 11:02:Charu Barraza RN) WIC Program: Yes (02/15/2016 11:02:Charu Barraza RN) Discharge Agricultural Engineering Technician Person: Tamica Steele (02/15/2016 11:02:Charu Barraza RN) Person to Help after Discharge: Tamica Steele (02/15/2016 11:02:Charu Barraza RN) Currently Using Commun Resources: Yes (02/15/2016 11:02:Charu Barraza RN) Specify Current Resource Used: medicaid (02/15/2016 11:02:Charu Barraza RN) Car Seat for Discharge: Yes (02/15/2016 11:02:Charu Barraza RN) Adoption Requested: No (02/15/2016 11:02:Charu Barraza RN) Pt Contact w/infant Post : N/A (02/15/2016 11:02:Charu Barraza RN) LABS Blood Type: A Positive (02/15/2016 11:02:Maryanne Lindsey RN) Antibody Screen: Negative (02/15/2016 11:02:Karime Henson RN) Rho(G) this : Not Applicable (02/15/2016 11:02:Karime Henosn RN) Hemoglobin: 9.9 L (03/04/2016 07:06:QS system process) Hematocrit: 30.7 L (03/04/2016 07:06:QS system process) MCV: 91 (03/04/2016 07:06:QS system process) Group Beta Strep: Negative (02/15/2016 11:02:Karime Henson RN) Gonorrhea: Negative (02/15/2016 11:02:Maryanne Lindsey RN) Chlamydia: Negative (02/15/2016 11:02:Maryanne Lindsey RN) RPR/VDRL: Nonreactive (02/15/2016 11:02:Maryanne Lindsey RN) Hepatitis B: Negative (02/15/2016 11:02:Maryanne Lindsey RN) Rubella: Immune (02/15/2016 11:02:Maryanne Lindsey RN) OB/PREVIOUS HISTORY Previous Procedures: Ultrasound; NST (02/15/2016 11:02:Belkis Hdez RN) Current Procedures: Ultrasound; NST (02/15/2016 11:02:Belkis Hdez RN) History of Previous : No (02/15/2016 11:02:Charu Barraza RN) History of Gestational Diabetes: No (02/15/2016 11:02:Charu Barraza RN) History of PIH: No (02/15/2016 11:02:Charu Barraza RN) History of Incompetent Cervix: No (02/15/2016 11:02:Charu Barraza RN) History of Placenta Previa/Abrup: No (02/15/2016 11:02:Charu Barraza RN) History of Macrosomia: No (02/15/2016 11:02:Charu Barraza RN) History of IUGR: No (02/15/2016 11:02:Charu Barraza RN) History of Hemorrhage: No (02/15/2016 11:02:Charu Barraza RN) History of Loss/Stillborn: No (02/15/2016 11:02:Charu Barraza RN) History of : No (02/15/2016 11:02:Charu Barraza RN) History of D (Rh) Sensitization: No (02/15/2016 11:02:Charu Barraza RN) History Recurrent Loss/Stillborn: No (02/15/2016 11:02:Charu Barraza RN) History Depression/PP Depression: Yes (02/15/2016 11:02:Charu Barraza RN) History of Uterine Anomaly/KATHY: No (02/15/2016 11:02:Charu Barraza RN) History of Infertility: No (02/15/2016 11:02:Charu Barraza RN) History of ART Treatment: No (02/15/2016 11:02:Charu Barraza RN) History of KATHY: No (02/15/2016 11:02:Charu Barraza RN) Comments Obstetrical History: G1: 2008 G2: SAB 2009 G3: Current, late entry to care 20 wk 6 d (02/15/2016 11:02:Charu Barraza RN) MEDICAL HISTORY Med Hx Diabetes: No (02/15/2016 11:02:Charu Barraza RN) Med Hx Hypertension: No (02/15/2016 11:02:Charu Barraza RN) Med Hx Heart Disease: No (02/15/2016 11:02:Charu Barraza RN) Med Hx Autoimmune Disorder: No (02/15/2016 11:02:Charu Barraza RN) Med Hx Kidney Disease/UTI: No (02/15/2016 11:02:Charu Barraza RN) Med Hx Neurologic/Epilepsy: No (02/15/2016 11:02:Charu Barraza RN) Med Hx Psychiatric Disorders: No (02/15/2016 11:02:Charu Barraza RN) Med Hx Hepatitis/Liver Disease: No (02/15/2016 11:02:Charu Barraza RN) Med Hx Varicosities/Phlebitis: No (02/15/2016 11:02:Charu Barraza RN) Med Hx Thyroid Dysfunction: No (02/15/2016 11:02:Charu Barraza RN) Med Hx Trauma/Violence: No (02/15/2016 11:02:Charu Barraza RN) Med Hx Blood Transfusion: No (02/15/2016 11:02:Charu Barraza RN) Med Hx Pulmonary (Asthma,TB): No (02/15/2016 11:02:Charu Barraza RN) Med Hx Breast: No (02/15/2016 11:02:Charu Barraza RN) Med Hx LEARNING AND DEVELOPMENT ANALYST Surgery: No (02/15/2016 11:02:Charu Barraza RN) Med Hx Hospitalization/Surgery: Yes (02/15/2016 11:02:Charu Barraza RN) Med Hx Anesthetic Complications: No (02/15/2016 11:02:Charu Barraza RN) Med Hx Abnormal Pap Smear: Yes (02/15/2016 11:02:Charu Barraza RN) Other Medical Diseases: No (02/15/2016 11:02:Charu Barraza RN) Med Hx Significant Family Hx: No (02/15/2016 11:02:Charu Barraza RN) Details of Med/Surg Hx: LGSIL pap; appy 2013; depression/anxiety, with meds in past (02/15/2016 11:02:Charu Barraza RN) INFECTIOUS HISTORY Inf Hx Gonorrhea: No (02/15/2016 11:02:Charu Barraza RN) Inf Hx Chlamydia: No (02/15/2016 11:02:Charu Barraza RN) Inf Hx Syphilis: No (02/15/2016 11:02:Charu Barraza RN) Inf Hx HIV/AIDS: No (02/15/2016 11:02:Charu Barraza RN) Inf Hx Human Papilloma Virus: No (02/15/2016 11:02:Charu Barraza RN) Inf Hx Pt/Partner Genital Herpes: No (02/15/2016 11:02:Chaur Barraza RN) Inf Hx Tuberculosis/Exposure: No (02/15/2016 11:02:Charu Barraza RN) Inf Hx Hepatitis B,C: No (02/15/2016 11:02:Charu Barraza RN) Inf Hx Rash or Viral Illness: No (02/15/2016 11:02:Charu Barraza RN) GENETIC HISTORY Gen Hx Age >=35 at ROXIE: No (02/15/2016 11:02:Charu Barraza RN) Gen Hx Thalassemia: No (02/15/2016 11:02:Charu Barraza RN) Gen Hx Congenital Heart Defect: No (02/15/2016 11:02:Charu Barraza RN) Gen Hx Neural Tube Defect: No (02/15/2016 11:02:Charu Barraza RN) Gen Hx Down's Syndrome: No (02/15/2016 11:02:Charu Barraza RN) Gen Hx Gamaliel-Sachs: No (02/15/2016 11:02:Charu Barraza RN) Gen Hx Aura: No (02/15/2016 11:02:Charu Barraza RN) Gen Hx Familial Dysautonomia: No (02/15/2016 11:02:Charu Barraza RN) Gen Hx Sickle Cell Disease/Trait: No (02/15/2016 11:02:Charu Barraza RN) Gen Hx Hemophilia/Blood Disorder: No (02/15/2016 11:02:Charu Barraza RN) Gen Hx Muscular Dystrophy: No (02/15/2016 11:02:Charu Barraza RN) Gen Hx Cystic Fibrosis: No (02/15/2016 11:02:Charu Barraza RN) Gen Hx Huntingtons Chorea: No (02/15/2016 11:02:Charu Barraza RN) Gen Hx Mental Retardation/Autism: No (02/15/2016 11:02:Charu Barraza RN) Gen Hx Tested for Fragile X: No (02/15/2016 11:02:Charu Barraza RN) Gen Hx Other Inher/Chromosomal: No (02/15/2016 11:02:Charu Barraza RN) Gen Hx Maternal Metabolic DO: No (02/15/2016 11:02:Charu Barraza RN) Gen Hx Pt Father or FOB Defect: No (02/15/2016 11:02:Charu Barraza RN) Gen Hx Other Genetic History: No (02/15/2016 11:02:Charu Barraza RN) Gen Hx Drugs/Meds since LMP: Yes (02/15/2016 11:02:Charu Barraza RN) Gen Hx Medications: diclegis, iron, vit b/ vit c (02/15/2016 11:02:Charu Barraza RN)
--- NOTE | 2016-03-11 06:22 | L&D Current Admission ---
Current Admit Datetime Report Generated by CPN: 03/11/2016 06:00 ADMISSION INFORMATION Current Admit Date/Time: 03/03/2016 00:08 (03/02/2016 22:00:Charu Barraza RN) Reason for Admission: Onset of Labor (03/02/2016 22:00:Charu Barraza RN) Chief Complaint: Contractions (03/02/2016 22:00:Charu Barraza RN) Medications During : Ferrous Sulfate (Iron) (03/02/2016 22:00:Charu Barraza RN) Meds During -Oth: diclegis, iron, vit b/vit c (03/02/2016 22:00:Charu Barraza RN) EGA per Dates: 40.4 (03/02/2016 22:00:QS system process) Method of Arrival: Wheelchair (03/02/2016 22:00:Charu Barraza RN) Admitted From: Home (03/02/2016 22:00:Charu Barraza RN) Reason for Induction: Not Applicable (03/02/2016 22:00:Charu Barraza RN) Records Available: Yes (03/02/2016 22:00:Charu Barraza RN) General Admission Information: Reviewed; Updated; Confirmed (03/02/2016 22:00:Charu Barraza RN) General Admission Reviewed By: Guero Barraza RN (03/02/2016 22:00:Charu Barraza RN) BELONGINGS/ADVANCED DIRECTIVES Other Belongings: see [facility] belongings form (03/02/2016 22:00:Charu Barraza RN) Advance Direct for Healthcare: No, and Wants No Information (03/02/2016 22:00:Charu Barraza RN) Durable Power of Medical Sales Associate: No (03/02/2016 22:00:Charu Barraza RN) Living Will: No (03/02/2016 22:00:Charu Barraza RN) Organ Donor: Yes (03/02/2016 22:00:Charu Barraza RN) Pt Rights Information Given: Yes (03/02/2016 22:00:Charu Barraza RN) Pt Understands Pt Rights: Yes (03/02/2016 22:00:Charu Barraza RN) LEARNING ASSESSMENT Knowledge Level: Understands L_D Process (03/02/2016 22:00:Charu Barraza RN) Barriers to Learning: Emotional State; Pain (03/02/2016 22:00:Charu Barraza RN) Learning Readiness: Unable to Participate (03/02/2016 22:00:Charu Barraaz RN) Learning Needs: Labor and Delivery Process; Pain Management; Symptoms to Report; Treatment Plan; Medication; Diagnosis; Nutrition; Equipment; Infant Care (03/02/2016 22:00:Charu Barraza RN) DOMESTIC VIOLANCE SCREENING Reason Unable to Complete Screen: No Opportunity to Talk Privately (03/02/2016 22:00:Charu Barraza RN) NUTRITIONAL/FUNCTIONAL SCREENING Problem with Appetite >5 Days: No (03/02/2016 22:00:Charu Barraza RN) Chew/Swallow Difficulties: No (03/02/2016 22:00:Charu Barraza RN) Inappropriate Wt Gain/Loss: No (03/02/2016 22:00:Charu Barraza RN) Presence Skin Breakdown/Ulcer: No (03/02/2016 22:00:Charu Barraza RN) Special Diet: No (03/02/2016 22:00:Charu Barraza RN) Pt Requests Belt Glass Sander Visit: No (03/02/2016 22:00:Charu Barraza RN) Hx of Any of the Following?: N/A (03/02/2016 22:00:Charu Barraza RN) New Diagnosis of: N/A (03/02/2016 22:00:Charu Barraza RN) Requires Assist w/Ambulation: No (03/02/2016 22:00:Charu Barraza RN) Uses Assist Device to Ambulate: No (03/02/2016 22:00:Charu Barraza RN) Pt Requires Help w/ADL's: No (03/02/2016 22:00:Charu Barraza RN)
--- NOTE | 2016-03-11 18:26 | L&D General Admission ---
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[employer] [facility] (02/15/2016 11:02:Maryanne Lindsey RN) Month of 1st Visit: September 2015 (02/15/2016 11:02:Maryanne Lindsey RN) Adequate Care: No (02/15/2016 11:02:Maryanne Lindsey RN) Height (in): 64 (03/03/2016 11:45:QS system process) ALLERGIES Medication Allergy: No (02/15/2016 11:02:Maryanne Lindsey RN) Medication Allergies: No Known Allergies (03/02/2016) (03/02/2016 21:37:QS system process) Latex Allergy: No Latex Allergies (02/15/2016 11:02:Maryanne Lindsey RN) COMMUNICATION Primary Language: Canadian (02/15/2016 11:02:Maryanne Lindsey RN) Medical Tx Preferred Language: Canadian (02/15/2016 11:02:Charu Barraza RN) Canadian Communication Ability: Speaks Canadian; Reads Canadian (02/15/2016 11:02:Belkis Hdez RN) Communication Barrier(s): None (02/15/2016 11:02:Belkis dHez RN) DEMOGRAPHICS Address: [address] [place] [id number] (02/15/2016 10:59:QS system process) Zipcode: [address] (02/15/2016 10:59:QS system process) Home (02/15/2016 10:59:QS system process) SSN: [id number] (02/15/2016 10:59:QS system process) Next of Kin Name: ADAM CALLEJAS (02/15/2016 10:59:QS system process) Next of Kin (02/15/2016 10:59:QS system process) Next of Kin Relationship: MO (02/15/2016 10:59:QS system process) Date of : 1985 (02/15/2016 10:59:QS system process) Marital Status: Legally (02/15/2016 10:59:QS system process) Sex: Female (02/15/2016 10:59:QS system process) Race: (02/15/2016 10:59:QS system process) Ethnicity: Non- or (02/15/2016 10:59:QS system process) Mormon: None (02/15/2016 10:59:QS system process) FOB Involved: No (02/15/2016 11:02:Charu Barraza RN) DRUG AND ALCOHOL USE Alcohol: No (02/15/2016 11:02:Charu Barraza RN) Cigarettes: Current Everyday Smoker. [id number] (02/15/2016 11:02:Charu Barraza RN) Cigarette Comments: 1/2 ppd (02/15/2016 11:02:Charu Barraza RN) Marijuana: No (02/15/2016 11:02:Charu Barraza RN) Cocaine: No (02/15/2016 11:02:Charu Barraza RN) Other Illicit Drugs: No (02/15/2016 11:02:hCaru Barraza RN) VACCINE HISTORY Influenza Vaccine: No (02/15/2016 11:02:Charu Barraza RN) Pneumococcal Vaccine: No (02/15/2016 11:02:Charu Barraza RN) Tetanus Vaccine: Yes (02/15/2016 11:02:Charu Barraza RN) Tdap Vaccine: Yes (02/15/2016 11:02:Charu Barraza RN) Hepatitis B Vaccine: Yes (02/15/2016 11:02:Charu Barraza RN) Barrel Leveler: [facility] (02/15/2016 11:02:Belkis Hdez RN) Feeding Preference: Breast (02/15/2016 11:02:Charu Barraza RN) Benefit of Breast Feed Discussed: Yes (02/15/2016 11:02:Charu Barraza RN) Circumcision: Yes (02/15/2016 11:02:Charu Barraza RN) Tubal Authorization Signed: N/A (02/15/2016 11:02:Charu Barraza RN) Consent: N/A (02/15/2016 11:02:Charu Barraza RN) Consent Signed: N/A (02/15/2016 11:02:Charu Barraza RN) Pain Management Plans: Medications; Epidural (02/15/2016 11:02:Charu Barraza RN) Plans for Labor and Delivery: None (02/15/2016 11:02:Belkis Hdez RN) Support Person: Tamica Steele (02/15/2016 11:02:Charu Barraza RN) Support Person Relationship: Mother (02/15/2016 11:02:Charu Barraza RN) Cultural/Spritual Practice: No (02/15/2016 11:02:Charu Barraza RN) Spir/Cult Dietary Needs: No (02/15/2016 11:02:Charu Barraza RN) LIVING SITUATION/DISCHARGE PLAN Living Arrangements: House (02/15/2016 11:02:Charu Barraza RN) Adequate Access to:: Electric; Heat; Refrigeration; Plumbing/Running water; Phone; Transportation (02/15/2016 11:02:Charu Barraza RN) WIC Program: Yes (02/15/2016 11:02:Charu Barraza RN) Discharge Town Manager Person: Tamica Steele (02/15/2016 11:02:Charu Barraza RN) Person to Help after Discharge: Tamica Steele (02/15/2016 11:02:Charu Barraza RN) Currently Using Commun Resources: Yes (02/15/2016 11:02:Charu Barraza RN) Specify Current Resource Used: medicaid (02/15/2016 11:02:Charu Barraza RN) Car Seat for Discharge: Yes (02/15/2016 11:02:Charu Barraza RN) Adoption Requested: No (02/15/2016 11:02:Charu Barraza RN) Pt Contact w/infant Post : N/A (02/15/2016 11:02:Charu Barraza RN) LABS Blood Type: A Positive (02/15/2016 11:02:Maryanne Lindsey RN) Antibody Screen: Negative (02/15/2016 11:02:Karime Henson RN) Rho(G) this : Not Applicable (02/15/2016 11:02:Karime Henson RN) Hemoglobin: 9.9 L (03/04/2016 07:06:QS system process) Hematocrit: 30.7 L (03/04/2016 07:06:QS system process) MCV: 91 (03/04/2016 07:06:QS system process) Group Beta Strep: Negative (02/15/2016 11:02:Karime Henson RN) Gonorrhea: Negative (02/15/2016 11:02:Maryanne Lindsey RN) Chlamydia: Negative (02/15/2016 11:02:Maryanne Lindsey RN) RPR/VDRL: Nonreactive (02/15/2016 11:02:Maryanne Lindsey RN) Hepatitis B: Negative (02/15/2016 11:02:Maryanne Lindsey RN) Rubella: Immune (02/15/2016 11:02:Maryanne Lindsey RN) OB/PREVIOUS HISTORY Previous Procedures: Ultrasound; NST (02/15/2016 11:02:Belkis Hdez RN) Current Procedures: Ultrasound; NST (02/15/2016 11:02:Belkis Hdez RN) History of Previous : No (02/15/2016 11:02:Charu Barraza RN) History of Gestational Diabetes: No (02/15/2016 11:02:Charu Barraza RN) History of PIH: No (02/15/2016 11:02:Charu Barraza RN) History of Incompetent Cervix: No (02/15/2016 11:02:Charu Barraza RN) History of Placenta Previa/Abrup: No (02/15/2016 11:02:Charu Barraza RN) History of Macrosomia: No (02/15/2016 11:02:Charu Barraza RN) History of IUGR: No (02/15/2016 11:02:Charu Barraza RN) History of Hemorrhage: No (02/15/2016 11:02:Charu Barraza RN) History of Loss/Stillborn: No (02/15/2016 11:02:Charu Barraza RN) History of : No (02/15/2016 11:02:Charu Barraza RN) History of D (Rh) Sensitization: No (02/15/2016 11:02:Charu Barraza RN) History Recurrent Loss/Stillborn: No (02/15/2016 11:02:Charu Barraza RN) History Depression/PP Depression: Yes (02/15/2016 11:02:Charu Barraza RN) History of Uterine Anomaly/KATHY: No (02/15/2016 11:02:Charu Barraza RN) History of Infertility: No (02/15/2016 11:02:Charu Barraza RN) History of ART Treatment: No (02/15/2016 11:02:Charu Barraza RN) History of KATHY: No (02/15/2016 11:02:Charu Barraza RN) Comments Obstetrical History: G1: 2008 G2: SAB 2009 G3: Current, late entry to care 20 wk 6 d (02/15/2016 11:02:Charu Barraza RN) MEDICAL HISTORY Med Hx Diabetes: No (02/15/2016 11:02:Charu Barraza RN) Med Hx Hypertension: No (02/15/2016 11:02:Charu Barraza RN) Med Hx Heart Disease: No (02/15/2016 11:02:Charu Barraza RN) Med Hx Autoimmune Disorder: No (02/15/2016 11:02:Charu Barraza RN) Med Hx Kidney Disease/UTI: No (02/15/2016 11:02:Charu Barraza RN) Med Hx Neurologic/Epilepsy: No (02/15/2016 11:02:Charu Barraza RN) Med Hx Psychiatric Disorders: No (02/15/2016 11:02:Charu Barraza RN) Med Hx Hepatitis/Liver Disease: No (02/15/2016 11:02:Charu Barraza RN) Med Hx Varicosities/Phlebitis: No (02/15/2016 11:02:Charu Barraza RN) Med Hx Thyroid Dysfunction: No (02/15/2016 11:02:Charu Barraza RN) Med Hx Trauma/Violence: No (02/15/2016 11:02:Charu Barraza RN) Med Hx Blood Transfusion: No (02/15/2016 11:02:Charu Barraza RN) Med Hx Pulmonary (Asthma,TB): No (02/15/2016 11:02:Charu Barraza RN) Med Hx Breast: No (02/15/2016 11:02:Charu Barraza RN) Med Hx LVN HOME HEALTH Surgery: No (02/15/2016 11:02:Charu Barraza RN) Med Hx Hospitalization/Surgery: Yes (02/15/2016 11:02:Charu Barraza RN) Med Hx Anesthetic Complications: No (02/15/2016 11:02:Charu Barraza RN) Med Hx Abnormal Pap Smear: Yes (02/15/2016 11:02:Charu Barraza RN) Other Medical Diseases: No (02/15/2016 11:02:Charu Barraza RN) Med Hx Significant Family Hx: No (02/15/2016 11:02:Charu Barraza RN) Details of Med/Surg Hx: LGSIL pap; appy 2013; depression/anxiety, with meds in past (02/15/2016 11:02:Charu Barraza RN) INFECTIOUS HISTORY Inf Hx Gonorrhea: No (02/15/2016 11:02:Charu Barraza RN) Inf Hx Chlamydia: No (02/15/2016 11:02:Charu Barraza RN) Inf Hx Syphilis: No (02/15/2016 11:02:Charu Barraza RN) Inf Hx HIV/AIDS: No (02/15/2016 11:02:Charu Barraza RN) Inf Hx Human Papilloma Virus: No (02/15/2016 11:02:Charu Barraza RN) Inf Hx Pt/Partner Genital Herpes: No (02/15/2016 11:02:Charu Barraza RN) Inf Hx Tuberculosis/Exposure: No (02/15/2016 11:02:Charu Barraza RN) Inf Hx Hepatitis B,C: No (02/15/2016 11:02:Charu Barraza RN) Inf Hx Rash or Viral Illness: No (02/15/2016 11:02:Charu Barraza RN) GENETIC HISTORY Gen Hx Age >=35 at ROXIE: No (02/15/2016 11:02:Charu Barraza RN) Gen Hx Thalassemia: No (02/15/2016 11:02:Charu Barraza RN) Gen Hx Congenital Heart Defect: No (02/15/2016 11:02:Charu Barraza RN) Gen Hx Neural Tube Defect: No (02/15/2016 11:02:Charu Barraza RN) Gen Hx Down's Syndrome: No (02/15/2016 11:02:Charu Barraza RN) Gen Hx Gamaliel-Sachs: No (02/15/2016 11:02:Charu Barraza RN) Gen Hx Aura: No (02/15/2016 11:02:Charu Barraza RN) Gen Hx Familial Dysautonomia: No (02/15/2016 11:02:Charu Barraza RN) Gen Hx Sickle Cell Disease/Trait: No (02/15/2016 11:02:Charu Barraza RN) Gen Hx Hemophilia/Blood Disorder: No (02/15/2016 11:02:Charu Barraza RN) Gen Hx Muscular Dystrophy: No (02/15/2016 11:02:Charu Barraza RN) Gen Hx Cystic Fibrosis: No (02/15/2016 11:02:Charu Barraza RN) Gen Hx Huntingtons Chorea: No (02/15/2016 11:02:Charu Barraza RN) Gen Hx Mental Retardation/Autism: No (02/15/2016 11:02:Charu Barraza RN) Gen Hx Tested for Fragile X: No (02/15/2016 11:02:Charu Barraza RN) Gen Hx Other Inher/Chromosomal: No (02/15/2016 11:02:Charu Barraza RN) Gen Hx Maternal Metabolic DO: No (02/15/2016 11:02:Charu Barraza RN) Gen Hx Pt Father or FOB Defect: No (02/15/2016 11:02:Charu Barraza RN) Gen Hx Other Genetic History: No (02/15/2016 11:02:Charu Barraza RN) Gen Hx Drugs/Meds since LMP: Yes (02/15/2016 11:02:Charu Barraza RN) Gen Hx Medications: diclegis, iron, vit b/ vit c (02/15/2016 11:02:Charu Barraza RN)
--- NOTE | 2016-03-11 18:26 | L&D Current Admission ---
Current Admit Datetime Report Generated by CPN: 03/11/2016 18:00 ADMISSION INFORMATION Current Admit Date/Time: 03/03/2016 00:08 (03/02/2016 22:00:Charu Barraza RN) Reason for Admission: Onset of Labor (03/02/2016 22:00:Charu Barraza RN) Chief Complaint: Contractions (03/02/2016 22:00:Charu Barraza RN) Medications During : Ferrous Sulfate (Iron) (03/02/2016 22:00:Charu Barraza RN) Meds During -Oth: diclegis, iron, vit b/vit c (03/02/2016 22:00:Charu Barraza RN) EGA per Dates: 40.4 (03/02/2016 22:00:QS system process) Method of Arrival: Wheelchair (03/02/2016 22:00:Charu Barraza RN) Admitted From: Home (03/02/2016 22:00:Charu Barraza RN) Reason for Induction: Not Applicable (03/02/2016 22:00:Charu Barraza RN) Records Available: Yes (03/02/2016 22:00:Charu Barraza RN) General Admission Information: Reviewed; Updated; Confirmed (03/02/2016 22:00:Charu Barraza RN) General Admission Reviewed By: Guero Barraza RN (03/02/2016 22:00:Charu Barraza RN) BELONGINGS/ADVANCED DIRECTIVES Other Belongings: see [facility] belongings form (03/02/2016 22:00:Charu Barraza RN) Advance Direct for Healthcare: No, and Wants No Information (03/02/2016 22:00:Charu Barraza RN) Durable Power of Supervisor Mending: No (03/02/2016 22:00:Charu Barraza RN) Living Will: No (03/02/2016 22:00:Charu Barraza RN) Organ Donor: Yes (03/02/2016 22:00:Charu Barraza RN) Pt Rights Information Given: Yes (03/02/2016 22:00:Charu Barraza RN) Pt Understands Pt Rights: Yes (03/02/2016 22:00:Charu Barraza RN) LEARNING ASSESSMENT Knowledge Level: Understands L_D Process (03/02/2016 22:00:Charu Barraza RN) Barriers to Learning: Emotional State; Pain (03/02/2016 22:00:Charu Barraza RN) Learning Readiness: Unable to Participate (03/02/2016 22:00:Charu Barraza RN) Learning Needs: Labor and Delivery Process; Pain Management; Symptoms to Report; Treatment Plan; Medication; Diagnosis; Nutrition; Equipment; Infant Care (03/02/2016 22:00:Charu Barraza RN) DOMESTIC VIOLANCE SCREENING Reason Unable to Complete Screen: No Opportunity to Talk Privately (03/02/2016 22:00:Charu Barraza RN) NUTRITIONAL/FUNCTIONAL SCREENING Problem with Appetite >5 Days: No (03/02/2016 22:00:Charu Barraza RN) Chew/Swallow Difficulties: No (03/02/2016 22:00:Charu Barraza RN) Inappropriate Wt Gain/Loss: No (03/02/2016 22:00:Charu Barraza RN) Presence Skin Breakdown/Ulcer: No (03/02/2016 22:00:Charu Barraza RN) Special Diet: No (03/02/2016 22:00:Charu Barraza RN) Pt Requests Parachute Marker Visit: No (03/02/2016 22:00:Charu Barraza RN) Hx of Any of the Following?: N/A (03/02/2016 22:00:Charu Barraza RN) New Diagnosis of: N/A (03/02/2016 22:00:Charu Barraza RN) Requires Assist w/Ambulation: No (03/02/2016 22:00:Charu Barraza RN) Uses Assist Device to Ambulate: No (03/02/2016 22:00:Charu Barraza RN) Pt Requires Help w/ADL's: No (03/02/2016 22:00:Charu Barraza RN)
== END 2016-03-05 12:34 | disposition home or self-care (01) | DRG 775 ==
LOC: LC 21:27 → LR 23:45 → 2N 03-03 07:29
PROVIDERS: ADMIT Obstetrics & Gynecology; ATTEND Obstetrics & Gynecology
PROC: 10E0XZZ Delivery of Products of Conception, External Approach (ICD-10-PCS; principal; 2016-03-03)
DX: O62.3 Precipitate labor (principal); O99.334 Smoking (tobacco) complicating childbirth; F17.210 Nicotine dependence, cigarettes, uncomplicated; O76 Abnormality in fetal heart rate and rhythm complicating labor and delivery; Z3A.40 40 weeks gestation of pregnancy; Z37.0 Single live birth; O09.33 Supervision of pregnancy with insufficient antenatal care, third trimester
CPT/HCPCS: 36415; 59025; 80307; 81005; 85025; 85027; 86592; 86850; 86900; 86901; 94760; J2370; J2590; J3010; J3490

== ENCOUNTER 2016-09-02 12:14 | Emergency (ER) | payer MEDICAID ==
--- NOTE | 2016-09-02 12:30 | ER Document Report ---
ED Medical Screen (RME) - General Chief Complaint: Vaginal Bleeding Stated Complaint: VAGINAL BLEEDING Time Seen by Provider: 09/02/16 12:26 Notes: at 6 weeks by dates with some passage of blood clots starting today and some suprapubic nonradiating pain. She denies any fevers, vomiting, flank pain , or dysuria. TRAVEL OUTSIDE OF THE [place] IN LAST 30 DAYS: No - Related Data Allergies/Adverse Reactions: No Known Allergies Allergy (Verified 09/02/16 12:17) Past Medical History Renal/ Medical History: Denies: Hx Peritoneal Dialysis Past Surgical History: Reports: Hx Appendectomy Physical Exam - Vital signs Vitals: Temp Pulse Resp BP Pulse Ox 98.1 F 81 18 127/75 H 98 09/02/16 12:17 09/02/16 12:17 09/02/16 12:17 09/02/16 12:17 09/02/16 12:17 Course - Vital Signs Vital signs: Temp Pulse Resp BP Pulse Ox 98.1 F 81 18 127/75 H 98 09/02/16 12:17 09/02/16 12:17 09/02/16 12:17 09/02/16 12:17 09/02/16 12:17
[2016-09-02 12:58] LABS: ABSOLUTE EOSINOPHILS # (AUTO) 0.1 10^3/uL (0.0-0.6); ABSOLUTE MONOCYTES (AUTO) 0.3 10^3/uL (0.1-1.4); HEMOGLOBIN 14.6 g/dL (12.0-15.5); MEAN CORPUSCULAR HEMOGLOBIN 30.2 pg (27.0-33.4); MEAN CORPUSCULAR VOLUME 91 fl (80-97)
[2016-09-02 13:06] LABS: ABSOLUTE LYMPHOCYTES (AUTO) 2.5 10^3/uL (0.5-4.7); ABSOLUTE NEUT (AUTO) 5.9 10^3/uL (1.7-8.2); BASOPHILS % (AUTO) 0.4 % (0-2); EOSINOPHILS % (AUTO) 1.4 % (0-6); HEMATOCRIT 43.9 % (36.0-47.0); HGB HCT DIFFERENCE -0.1; LYMPHOCYTES % (AUTO) 27.9 % (13-45); MEAN CORPUSCULAR HGB CONC 33.4 g/dL (32.0-36.0); MONOCYTES % (AUTO) 3.4 % (3-13); RED BLOOD COUNT 4.84 10^6/uL (3.72-5.28); RED CELL DISTRIBUTION WIDTH 13.5 % (11.5-14.0); SEGMENTED NEUTROPHILS % (AUTO) 66.9 % (42-78); WHITE BLOOD COUNT 8.9 10^3/uL (4.0-10.5)
[2016-09-02 13:10] LABS: APPEARANCE,URINE CLEAR; BILIRUBIN,URINE NEGATIVE (NEGATIVE); GLUCOSE, URINE NEGATIVE (NEGATIVE); KETONES,URINE NEGATIVE (NEGATIVE); LEUKOCYTE ESTERASE,URINE NEGATIVE (NEGATIVE); NITRITE,URINE NEGATIVE (NEGATIVE); PROTEIN,URINE NEGATIVE (NEGATIVE); URINE SPECIFIC GRAVITY 1.005; UROBILINOGEN,URINE NEGATIVE mg/dL (<2.0)
[2016-09-02 13:11] LABS: ANION GAP 13 (5-19); BLOOD UREA NITROGEN 8 mg/dL (7-20); CARBON DIOXIDE 24 mmol/L (22-30); CHLORIDE 103 mmol/L (98-107); CREATININE RESULT 0.61 mg/dL (0.52-1.25); GLUCOSE 95 mg/dL (75-110); POTASSIUM 4.4 mmol/L (3.6-5.0); SODIUM 139.9 mmol/L (137-145)
--- NOTE | 2016-09-02 13:35 | RADIOLOGY REPORT (SQ) ---
EXAM DESCRIPTION: U/S OB TRANSVAGINAL W/O DOP COMPLETED DATE/TIME: 09/02/2016 1:19 pm REASON FOR STUDY: PIT 1; preg/vag bleeding COMPARISON: None. TECHNIQUE: Transvaginal static and realtime grayscale images acquired of the pelvis. Additional jerrod cted spectral and color Doppler images recorded. All images stored on PACs. bHCG: Pending. LIMITATIONS: None. FINDINGS: GESTATION: No intrauterine gestational sac is appreciated. UTERUS: No masses, no anomalies. 93 x 67 x 47 mm. CERVICAL LENGTH: 2.24 cm. Closed. RIGHT ADNEXA: Right ovary not identified. No adnexal free fluid. No adnexal masses. LEFT ADNEXA: There is a 17 x 16 x 16 mm cyst in the left ovary. The ovary measures 36 x 35 x 25 mm. Trace. No adnexal masses. FREE FLUID: None. OTHER: No other significant finding. IMPRESSION: 1. No intrauterine gestational sac is present. If there is clinical evidence of pregna ncy, ectopic cannot be excluded. 2. There is a 17 x 16 x 16 mm left ovarian cyst. There is trace amount of fluid in the left adnexa. Trimester of : First - 0 to 13 weeks. TECHNICAL DOCUMENTATION: JOB ID: [id number] [employer]- All Rights Reserved
--- NOTE | 2016-09-02 13:38 | ER Document Report ---
ED GI/ - General Chief Complaint: Vaginal Bleeding Stated Complaint: VAGINAL BLEEDING Time Seen by Provider: 09/02/16 12:26 Mode of Arrival: Ambulatory Information source: Patient Notes: 30 yo (miscarriage ar 10 weeks-2008) about 6 weeks by LMP which was July 22 , started spotting yesterday, bright red, some dark, flow heavier today and that is when the pelvic cramping/sharp pains started-midline. No pain and minimal bleeding after the TV ultrasound. No hx std, no vaginal discharge, no dysuria. NO fever or chills. TRAVEL OUTSIDE OF THE [place] IN LAST 30 DAYS: No - Related Data Allergies/Adverse Reactions: No Known Allergies Allergy (Verified 09/02/16 12:17) Past Medical History - General Information source: Patient - Social History Smoking Status: Never Smoker Frequency of alcohol use: None Drug Abuse: None Lives with: Spouse/Significant other Family History: None Patient has suicidal ideation: No Patient has homicidal ideation: No - Medical History Medical History: Negative Renal/ Medical History: Denies: Hx Peritoneal Dialysis Past Surgical History: Reports: Hx Appendectomy Review of Systems - Review of Systems Constitutional: No symptoms reported EENT: No symptoms reported Cardiovascular: No symptoms reported Respiratory: No symptoms reported Gastrointestinal: No symptoms reported Genitourinary: No symptoms reported Female Genitourinary: See HPI Musculoskeletal: No symptoms reported Skin: No symptoms reported Hematologic/Lymphatic: No symptoms reported Neurological/Psychological: No symptoms reported Physical Exam - Vital signs Vitals: Temp Pulse Resp BP Pulse Ox 98.1 F 81 18 127/75 H 98 09/02/16 12:17 09/02/16 12:17 09/02/16 12:17 09/02/16 12:17 09/02/16 12:17 Interpretation: Normal - General General appearance: Appears well, Alert In distress: None - HEENT Head: Normocephalic, Atraumatic Eyes: Normal Pupils: PERRL Neck: Supple. No: Lymphadenopathy - Respiratory Respiratory status: No respiratory distress Chest status: Nontender Breath sounds: Normal Chest palpation: Normal - Cardiovascular Rhythm: Regular Heart sounds: Normal auscultation Murmur: No - Abdominal Inspection: Normal Distension: No distension Bowel sounds: Normal Tenderness: Nontender. No: Tender Organomegaly: No organomegaly - Back Back: Normal, Nontender. No: CVA tenderness - Extremities General upper extremity: Normal inspection, Nontender, Normal color, Normal ROM , Normal temperature General lower extremity: Normal inspection, Nontender, Normal color, Normal ROM , Normal temperature, Normal weight bearing. No: Rowan's sign - Neurological Neuro grossly intact: Yes Cognition: Normal Orientation: AAOx4 [place] Coma Scale Eye Opening: Spontaneous [place] Coma Scale Verbal: Oriented [place] Coma Scale Motor: Obeys Commands Nata Coma Scale Total: 15 Speech: Normal Motor strength normal: LUE, RUE, LLE, RLE Sensory: Normal - Psychological Associated symptoms: Normal affect, Normal mood - Skin Skin Temperature: Warm Skin Moisture: Dry Skin Color: Normal Skin irregularity: negative: Rash Course - Vital Signs Vital signs: Temp Pulse Resp BP Pulse Ox 98.0 F 80 18 125/70 100 09/02/16 14:25 09/02/16 14:25 09/02/16 14:25 09/02/16 14:25 09/02/16 14:25 - Laboratory Result Diagrams: 09/02/16 12:40 09/02/16 12:40 Laboratory results interpreted by me: 09/02/16 09/02/16 12:40 12:40 Beta HCG, Quant 553.42 H Urine Blood LARGE H Urine HCG, Qual POSITIVE H Discharge - Discharge Clinical Impression: VAGINALLY BLEEDING EARLY Condition: Good Disposition: HOME, SELF-CARE Instructions: Bleeding During Early ([facility]), [facility], [facility] ([facility]) Additional Instructions: return to ER for increased pain, bleeding, pain 1 side or the other, dizziness, any concerns outpatient repeat serum quantitative test on september 04 call [phone] and ask to speak with SEAFOOD MANAGER or PA on duty to discuss the lab results. copy of all the lab work given to you your blood type is A positive, so you do not get Rhogam shots. Please complete the patient satisfaction survey if you get one, and return it.. If you do not receive a survey, then you can go to the [facility] website, [email or web address] and place your comments about your very good care. Thank you very much. It was a pleasure being your medical provider today. Forms: Follow-Up Laboratory Testing, Return to Work
[2016-09-02 14:26] VITALS: BP 125/70
== END 2016-09-02 14:29 | disposition home or self-care (01) ==
LOC: ER 12:14
DX: O20.9 Hemorrhage in early pregnancy, unspecified (principal); O26.891 Other specified pregnancy related conditions, first trimester; R10.2 Pelvic and perineal pain; Z3A.01 Less than 8 weeks gestation of pregnancy
CPT/HCPCS: 36415; 76817; 80048; 81001; 81025; 84702; 85025; 86900; 86901; 99284

== ENCOUNTER → 2016-09-04 | Outpatient (CLI) | payer MEDICAID | LOC: LAB 07:55 | PROVIDERS: ATTEND Nurse Practitioner Family | DX: Z32.01 Encounter for pregnancy test, result positive (principal) | CPT/HCPCS: 36415; 84702 ==

== ENCOUNTER → 2016-12-25 | Outpatient (CLI) | payer SELFPAY ==
--- NOTE | 2016-12-25 16:37 | RADIOLOGY REPORT (SQ) ---
EXAM DESCRIPTION: U/S [id number] TRNABD 1GES W/ODOP COMPLETED DATE/TIME: 12/25/2016 2:49 pm REASON FOR STUDY: Z34.81 ENCOUNTER FOR SUPERV ISION OF OTHER NORMAL , FIRST TRIMESTE Z34.81 ENCOUNTER FOR SUPRVSN OF NORMAL , FIRST TRIM COMPARISON: No previous this TECHNIQUE: Transabdominal static and realtime grayscale images acquired of the pelvis. Additional se lected spectral and color Doppler images recorded. All images stored on PACs. bHCG: None available LIMITATIONS: None. FINDINGS: FETUS: Living intrauterine . EGA: 6 weeks 0 days ROXIE: 08/20/2017 FHR: 120 beats per minute. SUBCHORIONIC BLEED: No SIZE OF BLEED: Not applicable. UTERUS: No masses. No anomalies. CERVICAL LENGTH: 4.3 cm. Closed. RIGHT ADNEXA: Normal ovary with normal vascular flow. Right ovary 3.2 x 1.8 x 1.9 cm in size. No ad nexal free fluid.No adnexal masses. LEFT ADNEXA: Not visualized due to adnexal bowel gas. FREE FLUID: None. OTHER: No other significant finding. IMPRESSION: LIVING INTRAUTERINE . EGA 6 weeks 0 days Nonvisualization left adnexa due to bowel gas Trimester of : First - 0 to 13 weeks. TECHNICAL DOCUMENTATION: JOB ID: [id number]- All Rights Reserved
== END ==
LOC: RAD 13:46
PROVIDERS: ATTEND Nurse Practitioner Women's Health
DX: Z34.81 Encounter for supervision of other normal pregnancy, first trimester (principal)
CPT/HCPCS: 76801